=== PATIENT | female | born 1985 | race Caucasian/White ===

== ENCOUNTER 2021-01-24 06:49 | Emergency (ER) | payer OTHER ==
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
--- NOTE | 2021-01-24 08:30 | RAD REPORT ---
EXAM DESCRIPTION: CT - Spine Lumbar Wo Con - 01/24/2021 7:38 am CLINICAL HISTORY: Radiculopathy. LOWER BACK PAIN COMPARISON: No comparisons TECHNIQUE: Axial noncontrast CT imaging of the lumbar spine was performed with coronal and sagittal re-formatted images. All CT scans are performed using dose optimization technique as appropriate and may include automated exposure control or mA/KV adjustment according to patient size. FINDINGS: No acute lumbar spine fracture seen. No aggressive marrow pattern or malalignment. Paraspinal tissues are normal in thickness. No paraspinal abscess or hematoma seen. Mild to moderate spondylosis is present lower lumbar levels. Findings appear most significant at L5-S 1. IMPRESSION: No acute lumbar spine finding is evident. Mild to moderate lower lumbar spondylosis is present, most significant at L5-S1.
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
[2021-01-24] MEDS ORDERED: CYCLOBENZAPRINE 10 MG TAB ONE (09:07)
[2021-01-24] MEDS ORDERED: HYDROCODONE/APAP 5/325 MG TAB ONE (09:07)
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
[2021-01-24 09:27] VITALS: TEMP 98.4
[2021-01-24 09:29] VITALS: BP 110/67; O2SAT 97
== END 2021-01-24 09:20 | disposition home or self-care (01) ==
LOC: ER 06:49
DX: S09.90XA Unspecified injury of head, initial encounter (principal); S16.1XXA Strain of muscle, fascia and tendon at neck level, initial encounter; S30.0XXA Contusion of lower back and pelvis, initial encounter; F17.210 Nicotine dependence, cigarettes, uncomplicated; Y04.2XXA Assault by strike against or bumped into by another person, initial encounter
CPT/HCPCS: 70450; 70486; 72125; 72131; 72170; 76377; 99284

== ENCOUNTER 2021-04-08 02:07 | Emergency (ER) | payer OTHER ==
--- OUTSIDE RECORDS SUMMARY | 2021-04-08 02:10 | XMS REPORT | Clinical Summary ---
:[address] [facility] Address [address] [place] [address] Care Team Providers Name Role Phone Slim Dawn DMD Unavailable Allergies Active Allergy Reactions Severity Noted Date Comments Lactose Diarrhea 01/07/2016 Pt is lactose i ntolerant Oxycodone Swelling 09/01/2016 Topiramate Other (See Comments) Low 10/15/2015 Depress ed mood Alprazolam 01/07/2016 Agitation; rest less Medications Medication Sig Dispensed Refills Start Date End Date Status COMBIVENT RESPIMAT 0 08/21/2015 Active 20-100 mcg/actuation inhaler promethazine 0 09/15/2015 Active (PHENERGAN) 25 mg tablet LORazepam (ATIVAN) 1 Take 1 tablet (1 60 tablet 1 01/30/2016 Active mg tabletIndications: mg) by mouth 2 Major depression, (two) times a day melancholic type as needed for anxiety. carisoprodol (SOMA) Take 350 mg by 0 Active 350 mg mouth 3 (three) tabletIndications: times a day as muscle spasm needed for muscle spasms. oxyCODONE (ROXICODONE) Take 10 mL (10 mg) 473 mL 0 08/18/19 17 Active 5 mg/5 mL by mouth every 6 solutionIndications: (six) hours as Other acute pain needed for severe pain. HYDROcodone-acetaminop Take 2 tablets by 0 Active hen (NORCO) 10 mg-325 mouth every 6 mg per tablet (six) hours as needed. duloxetine HCl Take 90 mg by 0 A ctive (DULOXETINE mouth daily. ORAL)Indications: anxiety with depression pantoprazole Take 40 mg by 0 Act david (PROTONIX) 40 mg EC mouth daily with tablet breakfast. mupirocin (BACTROBAN) Use only on the 22 g 0 10/18/2017 Active 2% excoriated papules ointmentIndications: Neurotic excoriation clobetasol (TEMOVATE) Use on the new 30 g 0 10/18/2017 Active 0.05% lesions only for 2 ointmentIndications: weeks at a time, Neurotic excoriation avoid face axilla. hydrocortisone 2.5% Use only on face 30 g 0 10/18/2017 Active creamIndications: once a day on the Neurotic excoriation new lesions, do not use more than 2 weeks in a row Active Problems Problem Noted Date Pain of head and neck region 05/08/2017 Overview: Chronic with acute exacerbation Headache 05/08/2017 Nausea and vomiting 05/08/2017 Back pain 05/08/2017 Asthma 05/08/2017 Overview: No active wheezing Leukocytosis 05/08/2017 Hypomagnesemia 05/08/2017 Partially edentulous maxilla 05/29/2016 Other acquired deformity of head 05/29/2016 Class IV partial loss of teeth due to other specified cause 04/14/2016 Explosive personality disorder 10/03/2015 Tobacco use 09/19/2015 Major depression, melancholic type 09/19/2015 Odontogenic cyst 09/02/2015 Ovarian cyst 08/11/2015 Overview: HL ICD10 regulatory upload Encounters Date Type Specialty Care Team Description 07/28/2020 Orders Only Infectious Diseases Marly Perry, SARS -CoV-2 vaccination 07/04/2020 Orders Only Head and Neck Surgery Deja Mccoy PA Odo ntogenic cyst (Primary Dx) after 04/08/2020 Surgical History Surgery Date Site/Laterality Comments FRACTURE SURGERY OH REMV UPPER 02/13/2016 Mouth/Left Procedure: MAXIL LECTOMY, JAW-MAXILLECTOMY WITHOUT ORBITAL EXTENERATION; Surgeon: Isidro Salgado MD; Location: MAIN OR; Service: HN - HEAD & NECK SURGERY OH DENTAL SURGERY PROCEDURE 02/13/2016 N/A Proc edure: DENTAL EXTRACTION(S); Surgeon: Dusty Gross DDS; Location: MAIN OR; Service: OR AL ONCOLOGY & MAXILLOFACIAL OH OSTHODONTICS OH RECMPL WND SCALP,EXTR 02/13/2016 N/A Procedu re: COMPLEX WOUND 1.1-2.5 CM CLOSURE; Surgeo n: Nito Lacey MD; L ocation: MAIN OR; Service: PL S - PLASTIC SURGERY Medical History Medical History Date Comments Asthma Ruptured cyst of ovary Migraine Hearing loss Functional visual loss Loss of sense of smell Sinusitis 2009 went in er for abces s roof mouth front top gum Tooth disorder 2009 abcesses Swallowing problem 2015 yes when abcess occu rs in pallate Polycystic ovarian syndrome [address] Raeann Michaud Fracture 2004-09 left fiblia , plate/ pin [address] screws [address] Banuelos Presence of other specified device 2004-09 pin/p late 5 screws left fibula Depression 2008 Anxiety 2007 kvng Obsessive-compulsive disorder [address] العلي Family History Medical History Relation Name Comments Hyperlipidemia Father Coronary heart disease (CHD) Maternal Grandfather -Thoracic or Lung Maternal Grandmother Stroke Maternal Grandmother Hypertension Mother Rheum arthritis Mother Coronary heart disease (CHD) Paternal Grandfather Diabetes Paternal Grandfather -Breast cancer Paternal Grandmother Relation Name Status Comments Father Maternal Grandfather Maternal Grandmother Mother Paternal Grandfather Paternal Grandmother Social History Tobacco Use Types Packs/Day Years Used Date Former Smoker Cigarettes 1 22 10/15/1995 - 1 Smokeless Tobacco: Never Used Tobacco Cessation: Counseling Given: Yes Comments: just quit smoking 01/27/16, pt on Nicotine patches now Alcohol Use Standard Drinks/Week Comments Yes 1 (1 standard drink = 0.6 oz pure alcoho l) randomly not every week/day Alcohol Habits Answer Date Recorded How often do you have a drink containing Not asked alcohol? How many drinks containing alcohol do you Not asked have on a typical day when you are drinking? How often do you have six or more drinks on Not asked one occasion? Comment: randomly not every week/day 09/02/2015 Sex Assigned at Date Recorded Not on file Obstetrics History Para Term AB IAB SAB Ectopic Multiple Living Live Births 0 0 0 0 0 0 0 0 0 0 Last Filed Vital Signs Not on file Plan of Treatment Health Maintenance Due Date Last Done Comments COVID-19 Vaccination (1) 08/25/1988 Implants Implanted Type Area Payroll Administrative Assistant Device Identifier Shelf Exp iration Model / Date Serial / L ot [employer] Brand Pin Name Description: PIN and Screws in Fibula Results Not on fileafter 04/08/2020 Insurance Payer Benefit Plan / Subscriber ID Effective Phone Address T ype Group Dates HUMANA MEDICARE HU[employer]NA GOLD PLUS [id number] 2019-Pres [address] Medicare MEDICARE HMO [place] [id number] [place] [address] MED[place] [id number] 2019-Pres PO [address] Medicaid TRADITIONAL TRADITIONAL STAR ent [id number] [place] [address] Areli Gómez Dental Self 1985 [address] (Home) [place] [phone] Advance Directives Type Date Recorded Patient Bottom Wheeler Explanati on Advance Directives: 02/12/2016 12:00 AM Directiv e to Living Will Physicians and F leley or Surrogates-Dee Dee yu Will Advance Directives: 02/12/2016 12:00 AM Medical Power of Medical Power of [employer] St[employer]cher [employer] Code Status Date Activated Date Inactivated Comments Full Code 02/13/2016 10:10 AM 02/14/2016 12:32 PM Full Code 01/08/2016 12:32 AM 01/08/2016 5:53 PM Care Teams Head And Neck Surgeon Relationship Specialty Start Date End Date Slim Dawn, DMD Consulting Physician Dental Oncology 06/17/[address] [place] [id number]
--- OUTSIDE RECORDS SUMMARY | 2021-04-08 02:14 | XMS REPORT | Continuity of Care Document ---
:1985 Author Organization [facility] t Address [address] [place] [address] Care Team Providers Name Role Phone KRISTAL JACOBO Primary Care Physician Unavailable ODALIS Attending Clinician Unavailable Orlando CARDONA Attending Clinician Darius RADER Attending Clinician REJI Attending Clinician Unavailable PIETER CHAPA Attending Clinician Unavailable Marie FREY Attending Clinician Unavailable ANDREW Attending Clinician Unavailable Payers Payer Name Policy Policy Number Effective Expiration Source Type Date Date HUMANA MEDICAREHUMANA [id number] 2019 MD Genaro BURGOS PLUS MEDICARE 00:00:00 [id number] 2019-Pr [id number] [place] [id number] [place]ICAID [place] [id number] 2019 MD Anderso n [place] 00:00:00 TRADITIONAL STAR NON [id number] 2019-Pr es[address]PO [id number], [place] [address]Medicaid HUMANA CHOICECARE PPO [id number] 2018 00:00:00 MEDICAID OF [place] [id number] 2018 00:00:00 Problems Condition Condition Condition Status Onset Resolution Last Treating Co mments Source Name Details Category Date Date Treatment Clinician Date FACIAL Diagnosis Active 2017-042018-03-17 Mem oria SORES, 05-17 16:03:00 l MUSCLE FACIAL 00:00: [place] SPASMS, SORES, 00 LEFT ARM MUSCLE PA SPASMS, LEFT ARM PA Active 8 [facility] SEPSIS Diagnosis Active 2017-10-12 Mem oria 10-11 16:23:00 l SEPSIS 00:00: [place] 00 Active 10/11/2017 [facility] CANCER PT, Diagnosis Active 2017-10-11 Memoria PAIN, 10-11 16:04:00 l INFECTION CANCER 00:00: Sulma nn PT, PAIN, 00 INFECTION Active 10/11/2017 [facility] Pain of Pain of Disease Active Overview: head and head and 1-20 Formattin And erso neck neck 00:00: g of this n region region 00 note might be different from the original. Chronic with acute exacerbat ion Headache Headache Disease Active 1-20 Anderso 00:00: n 00 Nausea and Nausea and Disease Active M D vomiting vomiting -20 Cosmo o 00:00: n 00 Back pain Back pain Disease Active 1-20 Anderso 00:00: n 00 Asthma Asthma Disease Active Overview: 1-20 Formattin Anderso 00:00: g of this n 00 note might be different from the original. No active wheezing Leukocytos Leukocytos Disease Active M D is is 1-20 Anderso 00:00: n 00 Hypomagnes Hypomagnes Disease Active M D emia emia 1-20 Anderso 00:00: n 00 Chronic Chronic Problem Active [place] obstructiv Obstructiv 2-10 Fa carlitos e lung e Lung 00:00: Practic disease Disease 00 e Gastroesop Gastroesop Problem Active V illage hageal hageal 2-10 Family reflux Reflux 00:00: Practic disease Disease 00 e Partially Partially Disease Active edentulous edentulous 2-10 An derso maxilla maxilla 00:00: n 00 Other Other Disease Active MD acquired acquired 2-10 Cosmo o deformity deformity 00:00: n of head of head 00 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 2-27 Anderso loss of loss of 00:00: n teeth due teeth due 00 to other to other specified specified cause cause PAIN Diagnosis Active 2016-01-27 Mem oria 805 16:05:00 l PAIN 00:00: [place] 00 Active 11/22/2015 [facility] Explosive Explosive Disease Active MD personalit personalit 16 An derso y disorder y disorder 00:00: n 00 Tobacco Tobacco Disease Active MD use use 09-18 Anderso 00:00: n 00 Major Major Disease Active MD depression depression 09-18 An derso , , 00:00: n melancholi melancholi 00 c type c type 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 c cyst 16 Anderso 00:00: n 00 Mood Mood Problem Active [place] disorder Disorder -04 Family 00:00: Practic 00 e Endometrio Endometrio Problem Active V illage sis sis 04 Family (clinical) (Clinical) 00:00: Pr actic 00 e Cyst of Cyst of Problem Active [facility] ovary Ovary 5-04 Family 00:00: Practic 00 e Degenerati Degenerati Problem Active V illage on of on of 08-20 Family cervical Cervical 00:00: Practi c interverte Interverte 00 e bral disc bral Disc Degenerati Degenerati Problem Active V illage on of on of 04 Family lumbar Lumbar 00:00: Practic interverte Interverte 00 e bral disc bral Disc Ovarian Ovarian Disease Active Overview: MD cyst cyst 24 Formattin Anderso 00:00: g of this n 00 note might be different from the original. HL ICD10 regulator y upload VOMITING Diagnosis Active 2015-10-10 M emoria 1-06 11:00:00 l VOMITING 00:00: Navi n 00 Active 04/24/2015 [place] Pain in Problem 2018-10-05 Dmitriy ela left lower 13:31:52 l leg Pain in [place] left lower leg 10/05/2018 [place] Cough Problem 2018-10-05 Memor ia 13:31:52 l Cough Carlo 10/05/2018 [place] Nicotine Problem 2018-10-05 Mem oria dependence 13:31:52 l , Nicotine Navi n cigarettes dependence , , uncomplica cigarettes susanne , uncomplica susanne 10/05/2018 [place] Chronic Problem 2018-10-05 Dmitriy ela obstructiv 13:31:52 l e Chronic Carlo pulmonary obstructiv disease, e unspecifie pulmonary d disease, unspecifie d 10/05/2018 [facility] None Problem Resolve 2020-01-11 Dmitriy ela (qualifier d 21:56:10 l value) None Carlo (qualifier value) Resolved Problem 01/11/2020 [facility] [facility], [place] SEPSIS, Diagnosis Active 2017-10-12 Me moria UNSPECIFIE 16:23:00 l D ORGANISM SEPSIS, Her prasad UNSPECIFIE D ORGANISM Active [facility] History of Past Illness Condition Condition Condition Status Onset Resolution Last Treating Co mments Source Name Details Category Date Date Treatment Clinician Date Other Problem 2017-042018-10-05 2018-10-05 M emoria chest pain 05-25 13:31:52 13:31:52 l Other 04:34: Carlo chest pain 14 03/24/2018 10/05/2018 [place] Chest Problem 2017-042018-10-05 2018-10-05 M emoria pain, 05-17 13:31:52 13:31:52 l unspecifie Chest 06:00: Sulma nn d pain, 00 unspecifie d 03/17/2018 10/05/2018 [place] Pain in Problem 2017-042018-10-05 2018-10-05 Memoria leg, 05-17 13:31:52 13:31:52 l unspecifie Pain in 06:00: Her prasad d leg, 00 unspecifie d 03/17/2018 10/05/2018 [place] Shortness Problem 2017-042018-10-05 2018-10-05 Memoria of breath 05-17 13:31:52 13:31:52 l 06:00: [place] Shortness 00 of breath 03/17/2018 10/05/2018 [facility] Allergies, Adverse Reactions, Alerts Allergy Allergy Status Severity Reaction(s) Onset Inactive Treating Comm ents Source Name Type Date Date Clinician GABAPENT Allergy [facility] LORAZEPA Allergy Active Low Anxiety [facility] MORPHINE Allergy Active Low Anxiety 2017-[address] [facility] LAMOTRIG Allergy Active [facility] MIDAZOLA Allergy Active [facility] PREGABAL Allergy Active [facility] OXYCODON Allergy Active [facility] TOPIRAMA Allergy Active [facility] ALPRAZOL Allergy Active Low Other [facility] CLINDAMY Allergy Active Other [facility]CL [facility] No Known DA Active [facility] Lyrica Allergy Active [place] to Family substanc Practic e e Topirama Allergy Active [place] te to Family substanc Practic e e Xanax Allergy Active [place] to Family substanc Practic e e Family History Family Member Diagnosis Comments Start Date Stop Date Source Natural mother Hypertension Neil son Natural mother Rheum arthritis MD Marjan gomez Paternal grandfather Coronary heart disease MD Lam (CHD) Paternal grandfather Diabetes MD Selene mckeon Paternal grandmother -Breast cancer MD Lam Natural father Hyperlipidemia And erson Maternal grandfather Coronary heart disease MD Lam (CHD) Maternal grandmother -Thoracic or Lung MD Lam Maternal grandmother Stroke MD Selene mckeon Social History Social Habit Start Date Stop Date Quantity Comments Source History [facility] MD Lam Alcohol Frequency History [facility] MD Lam Alcohol Std Drinks History [facility] MD Lam Alcohol Binge Alcohol intake 2018-01-29 2018-01-29 Current drinker MD Marjan gomez 00:00:00 00:00:00 of alcohol (finding) Cigarettes smoked 2016-02-19 2016-02-19 MD Sam boucher current (pack per 00:00:00 00:00:00 day) - Reported Cigarette 2016-02-19 2016-02-19 MD Lam pack-years 00:00:00 00:00:00 Tobacco use and 2016-02-19 2016-02-19 Smokeless tobacco MD Lam exposure 00:00:00 00:00:00 non-user Tobacco Comment 2016-02-12 2016-02-12 just quit smoking MD Lam 00:00:00 00:00:00 01/27/16, pt on Nicotine patches now History of tobacco 1995-10-15 2016-01-27 Current smoker MD Lam use 00:00:00 00:00:00 History [facility] 2015-09-02 2015-09-02 randomly not MD Blank rios Alcohol Comment 00:00:00 00:00:00 every week/day Social History 2015-04-24 2015-04-24 [facility] 13:58:55 13:58:55 Sex [birth year] MD [place] on 00:00:00 00:00:00 Smoking Status Start Date Stop Date Source Heavy Tobacco Smoker [facility] Ex-smoker 2016-02-19 00:00:00 2016-02-19 00:00:00 MD Trejo son Medications Ordered Filled Start Stop Current Ordering Indication Dosage Frequency Signature Comments Components Source Medication Medication Date Date Medication? Clinician (SIG) Name Name Naproxen 2017-04 No 500 mg = 1 Mem oria 500 MG Oral 1-30 tab, PO, l Tablet 05:57: BID, # 30 Navi n [Naprosyn] 00 tab, 0 Refill(s) Aspirin 2017-04 No Notes: Memoria 1-29 Take with l 20:04: food. Saline 2017-04 No Notes: Memoria Flush 0.9% 05-17 Same as: l 20:04: BD Posiflush Sterile pantoprazol 2017-04 Yes 40mg Take 40 mg MD e 0-13 by mouth Anderso (PROTONIX) 04:36: daily with n 40 mg EC 06 breakfast. tablet carisoprodo 2017-04 Yes muscle 350mg Take 350 MD l (SOMA) 0-13 spasm mg by Anderso 350 mg 04:27: mouth 3 n tablet 10 (three) times a day as needed for muscle spasms. HYDROcodone 2017-04 Yes 2{tbl} Take 2 MD -acetaminop 0-13 tablets by An derso hen (NORCO) 04:27: mouth n 10 mg-325 10 every 6 mg per (six) tablet hours as needed. duloxetine 2017-04 Yes anxiety 90mg Take 90 mg MD HCl 0-13 with by mouth Anderso (DULOXETINE 04:27: depression daily. n ORAL) 10 mupirocin Yes Neurotic Use only MD (BACTROBAN) 10-18 excoriation on the Anderso 2% ointment 00:00: excoriated n 00 papules clobetasol Yes Neurotic Use on the MD (TEMOVATE) 10-18 excoriation new An derso 0.05% 00:00: lesions n ointment 00 only for 2 weeks at a time, avoid face axilla. hydrocortis Yes Neurotic Use only MD one 2.5% 10-18 excoriation on face A nderso cream 00:00: once a day n 00 on the new lesions, do not use more than 2 weeks in a row Albuterol No Notes: Memori a 0.833 MG/ML 10-13 (Same as: 19:00: Duoneb) [place] Ipratropium 00 [place] 0.167 MG/ML Inhalant Solution [DuoNeb] Zofran No Notes: Memoria -27 (Same as: l 18:50: Zofran) Carlo MEDICATION WASTE Product Size: 4 mg Product Wasted: ___ mg Sucralfate No 1 gm, Memori a -27 Route: PO, l 14:00: Drug form: Carlo TAB, TID, Dosing Weight 77.443, kg, Start date: 10/13/17 9:00:00 CDT, Duration: 30 day, Stop date: 11/11/17 17:00:00 CDT D5W 1/4NS + No Notes: Dmitriy ela KCL 10mEq/L 10-13 PREMIX IV l 1000ml 12:54: - Do Not Carlo (Premix) 00 Alter 1,000 mL WASTE: F/P - Sink; E - Municipal Trash Bin Sucralfate No Notes: August emoria - interfere l 05:01: w/enteral [place] 00 feeds - Take 1 hr before or 2 hr after antacids, dairy pdt, meals & minerals - On empty stomach. For patients unable to swallow tablet, dissolve in 10mL - 30mL of water or juice and stir before giving. (Same As: Carafate) Acetaminoph No Notes: emoria en 300 MG / 10-13 not exceed l Codeine 01:05: 4gm/day of Herm ashleigh Phosphate 00 acetaminop 30 MG Oral hen. Tablet (Same as: [Tylenol Tylenol with with Codeine #3] Codeine # 3) Protonix No Notes: Memoria 6-26 Tablet l 21:30: should not Carlo 00 be chewed or crushed. (Same as: Protonix) Midodrine No Notes: Memori a 6-26 (Same l 18:00: as:Proamat [place] 00 ine) D5NS + KCL No Notes: Memor ia 20mEq/L 6-26 PREMIX IV l 1000ml 14:14: - Do Not [place] (Premix) 00 Alter 1,000 mL WASTE: F/P - Sink; E - Municipal Trash Bin Trazodone No Notes: Memori a 6-26 (Same As: l 14:12: Desyrel) [place] 00 duloxetine No 30 mg, Memor ia 6-26 Route: PO, l 14:00: Drug form: Carlo 00 DRC, Daily, Dosing Weight 77.443, kg, Start date: 10/12/17 9:00:00 CDT, Duration: 30 day, Stop date: 11/10/17 9:00:00 CDT cefepime No Notes: Memoria 6-26 (Same As: l 07:00: Maxipime) MEDICATION WASTE Product Size: 1000 mg Product Wasted: ___ mg duloxetine No Notes: Memor ia 10-12 (Same as: l 04:00: Cymbalta) (Do Not Crush) Nicotine No Notes: Memoria 10-12 (Same as: l 03:25: Habitrol) "Remove old patch before applicatio n of new patch" WASTE: F/P - P Waste Black; E - P Waste Black Iohexol No Notes: Memoria 10-12 (Same l 02:48: as:Omnipaq ue 240) 12,000mg/5 0ml WASTE: F/P - Black; E - Municipal Trash Bin DULoxetine Yes 30 mg = 1 Me moria 30 mg oral 10-12 cap, PO, l delayed 01:59: Daily, Carlo release 00 take with capsule 60 mg tablet for total of 90 mg, 0 Refill(s) pantoprazol Yes 40 mg = 1 M emoria e 40 mg 10-12 tab, PO, l oral 01:26: Daily, # Carlo enteric 00 30 tab, 0 coated Refill(s) tablet Combivent Yes 1 puff, Memor ia Respimat 10-12 INHALATION l 01:26: , PRN [place] 00 Shortness of breath, 0 Refill(s) Promethazin Yes 25 mg = 1 M emoria e 6-26 tab, PO, l Hydrochlori 01:26: Q6H, PRN He rmann de 25 MG 00 as needed Oral Tablet for nausea/vom iting, 0 Refill(s) Lorazepam 1 Yes 1 mg = 1 Me moria MG Oral -26 tab, PO, l Tablet 01:26: BID, PRN Carlo 00 as needed for anxiety, 0 Refill(s) Oxycodone Yes 10 mg = 10 Me moria Hydrochlori 6-26 mL, PO, l de 1 MG/ML 01:26: Q6H, PRN Her prasad Oral 00 Pain Score Solution 6-10, 0 Refill(s) carisoprodo Yes 350 mg = 1 Memoria l 350 mg 6- tab, PO, l oral tablet 01:26: TID, PRN He rm Muscle Spasms, 0 Refill(s) Acetaminoph Yes 1 tab, PO, Memoria en 325 MG / -26 Q6H, PRN l Hydrocodone 01:26: Pain Score [place] Bitartrate 00 1-5, 0 10 MG Oral Refill(s) Tablet DULoxetine Yes 60 mg = 1 Me moria 60 mg oral 6- cap, PO, l delayed 01:26: Daily, take with capsule 30 mg tablet for a total of 90 mg, 0 Refill(s) Flagyl No Notes: Memoria - (Same as: l 01:00: Flagyl) Avoid alcohol. Zofran No Notes: Memoria 10-12 (Same as: l 00:06: Zofran) MEDICATION WASTE Product Size: 4 mg Product Wasted: ___ mg Tylenol No Notes: Do Memor ia 10-12 not exceed l 00:06: 4 gm/day. (Same as: Tylenol) Albuterol No Notes: Memori a 0.833 MG/ML 10-12 (Same as: l / 00:06: Duoneb) Ipratropium 00 [place] 0.167 MG/ML Inhalant Solution [DuoNeb] cefepime No Notes: Memoria 10-11 (Same as: l 22:18: Maxipime) MEDICATION WASTE Product Size: 2000 mg Product Wasted: ___ mg Vancomycin No Notes: Memor ia 6-25 TIME l 22:17: CRITICAL MEDICATION Same as: Vancocin Pepcid No 40 mg, Memoria 6-25 Route: l 21:38: IVP, ONCE, Dosing Weight 79.091, kg, Priority: STAT, Start date: 10/11/17 16:38:00 CDT, Stop date: 10/11/17 16:38:00 CDT GI cocktail No Notes: Dmitriy ela 6-25 G.I. l 21:38: Cocktail = antacid with simethicon e 22.5 mL - lidocaine viscous 7.5 mL Zofran ODT 2018-0 No 4 mg, Memori a 6-25 Route: PO, l 21:29: Drug form: [place] 00 TABDIS, ONCE, Dosing Weight 79.091, kg, Priority: STAT, Start date: 10/11/17 16:29:00 CDT, Stop date: 10/11/17 16:29:00 CDT NS (Bolus) 2017-0 No 1,000 mL, Me moria IV 25 1,000 l 21:25: ml/hr, Infuse Over: 1 hr, Route: IV, ONCE, Priority: STAT, Dosing Weight 79.091 kg, Start date: 10/11/17 16:25:00 CDT, Stop date: 10/11/17 16:25:00 CDT ketOROLAC 2017-0 No 15 mg, Memori a 15 mg/mL 25 Route: l injectable 21:25: IVP, Drug He rm solution form: INJ, ONCE, Dosing Weight 79.091, kg, Priority: STAT, Start date: 10/11/17 16:25:00 CDT, Stop date: 10/11/17 16:25:00 CDT Saline 2017-0 No Notes: Memoria Flush 0.9% 625 Same as: l 17:16: BD Posiflush Sterile Sodium 2017-0 No 1,000 mL, Memori a Chloride 6-25 1000 l 0.9% 17:16: ml/hr, [place] (Bolus) IV 00 Infuse Over: 1 hr, Route: IV, 1,000, Drug form: INJ, ONCE, Priority: STAT, Dosing Weight 79.091 kg, Start date: 10/11/17 12:16:00 CDT, Stop date: 10/11/17 12:16:00 CDT tizanidine tizanidine 2016- 2017- No tizanidine [place] hcl 4 mg hcl 4 mg 8-31 08-31 hcl 4 mg Fa carlitos tabs 1 tab tabs 1 tab 00:00: 00:00 tabs 1 tab Practic at night at night 00 :00 at night e oxyCODONE 2017-0 Yes Other acute 10mg Take 10 mL MD (ROXICODONE 501 pain (10 mg) by An derso ) 5 mg/5 mL 00:00: mouth n solution 00 every 6 (six) hours as needed for severe pain. LORazepam 2015-04 Yes Major 1mg Take 1 MD (ATIVAN) 1 0-13 depression, tablet (1 Anderso mg tablet 00:00: melancholic mg) by n 00 type mouth 2 (two) times a day as needed for anxiety. promethazin Yes MD e 09-14 Anderso (PHENERGAN) 00:00: n 25 mg 00 tablet COMBIVENT Yes MD RESPIMAT 5- Anderso 20-100 00:00: n mcg/actuati 00 on inhaler albuterol albuterol No 3mL TID albuterol [place] sulfate 2.5 sulfate 2.5 sulfate Family mg/3 mL mg/3 mL 2.5 mg/3 Pract ic (0.083 %) (0.083 %) mL (0.083 e solution solution %) for for solution nebulizatio nebulizatio for n Inhale 3 n Inhale 3 nebulizati mL 3 times mL 3 times on Inhale a day by a day by 3 mL 3 nebulizatio nebulizatio times a n route. n route. day by nebulizati on route. carisoprodo carisoprodo No carisoprod [facility] l 350 mg l 350 mg ol 350 mg Fa carlitos tablet take tablet take tablet Practic 2 tablets 2 tablets take 2 e in the in the tablets in morning and morning and the 2 at 2 at morning bedtime bedtime and 2 at bedtime carisoprodo carisoprodo No carisoprod [facility] l 350 mg l 350 mg ol 350 mg Fa carlitos tabs tabs tabs Practic e Combivent Combivent No 2puff(s QID Combivent [place] Respimat 20 Respimat 20 ) Respimat Family mcg-100 mcg-100 20 mcg-100 Pra ctic mcg/actuati mcg/actuati mcg/actuat e on solution on solution ion for for solution inhalation inhalation for Inhale 2 Inhale 2 inhalation puffs 4 puffs 4 Inhale 2 times a day times a day puffs 4 by by times a inhalation inhalation day by route. route. inhalation route. Cymbalta 30 Cymbalta 30 No 1capsul Q1D Cymbalta [place] mg mg e(s) 30 mg Family capsule,del capsule,del capsule,de Practic ayed ayed layed e release release release Take 1 Take 1 Take 1 capsule capsule capsule every day every day every day by oral by oral by oral route. route. route. Cymbalta 60 Cymbalta 60 No 1capsul Q1D Cymbalta [place] mg mg e(s) 60 mg Family capsule,del capsule,del capsule,de Practic ayed ayed layed e release release release Take 1 Take 1 Take 1 capsule capsule capsule every day every day every day by oral by oral by oral route. route. route. start after start after start finishing finishing after 30mg dose 30mg dose finishing 30mg dose diclofenac diclofenac No diclofenac [facility] sodium 3 % sodium 3 % sodium 3 % Family gel gel gel Practic e doxepin doxepin No doxepin Villag e hydrochlori hydrochlori hydrochlor [facility] de 5 % crea de 5 % crea uri 5 % Practic crea e doxycycline doxycycline No 1capsul BID doxycyclin [facility] hyclate 100 hyclate 100 e(s) e hyclate Family mg capsule mg capsule 100 mg P ractic Take 1 Take 1 capsule e capsule capsule Take 1 twice a day twice a day capsule by oral by oral twice a route. route. day by oral route. hydroco/apa hydroco/apa No hydroco/ap [place] p tab p tab ap tab Family 10-325mg 10-325mg 10-325mg Pra ctic e lidocaine 5 lidocaine 5 No lidocaine [place] % medicated % medicated 5 % F amily patch and patch and medicated Practic dimethicone dimethicone patch and e 5 % topical 5 % topical dimethicon cream apply cream apply e 5 % 4 patches a 4 patches a topical day day cream apply 4 patches a day lorazepam 1 lorazepam 1 No 1 TID lorazepam [place] mg tablet mg tablet 1 mg Famil y Take 1 Take 1 tablet Practic tablet 3 tablet 3 Take 1 e times a day times a day tablet 3 by oral by oral times a route as route as day by needed. needed. oral route as needed. mefenamic mefenamic No mefenamic [place] acid 250 mg acid 250 mg acid 250 Family caps caps mg caps Practic e Dickinson 10 Dickinson 10 No 1 Q4H Dickinson 10 Jasiel angie mg-325 mg mg-325 mg mg-325 mg Family tablet Take tablet Take tablet Practic 1 tablet 1 tablet Take 1 e every 4 every 4 tablet hours by hours by every 4 oral route. oral route. hours by oral route. pantoprazol pantoprazol No pantoprazo [place] e sodium 40 e sodium 40 le sodium Family mg tbec mg tbec 40 mg tbec Pra ctic e prednisone prednisone No 2 Q1D prednisone [facility] 20 mg 20 mg 20 mg Family tablet Take tablet Take tablet Practic 2 tablets 2 tablets Take 2 e every day every day tablets by oral by oral every day route. route. by oral route. temazepam temazepam No temazepam [place] 30 mg caps 30 mg caps 30 mg caps Family Practic e pantoprazol pantoprazol 2017- No 1 Q1D pantoprazo [place] e 40 mg e 40 mg 03-08 le 40 mg Fami ly tablet,eduardo tablet,eduardo 00:00 tablet,del Practic yed release yed release :00 ayed e Take 1 Take 1 release tablet tablet Take 1 every day every day tablet by oral by oral every day route. route. by oral route. temazepam temazepam 2017- 1capsul Q1D temazepam [facility] 30 mg 30 mg 02-08 e(s) 30 mg Family capsule capsule 00:00 capsule Pract ic Take 1 Take 1 :00 Take 1 e capsule capsule capsule every day every day every day by oral by oral by oral route at route at route at bedtime. bedtime. bedtime. [facility]- No combivent [facility] aer 20-100 aer 20-100 01-20 aer Family 00:00 20-100 Practic :00 e amox/k clav amox/k clav 2016- amox/k [place] tab tab 12-17 clav tab Family [phone] 00:00 875-125 Pract ic :00 e belsomra 10 belsomra 10 2017- belsomra [place] mg tabs mg tabs 12-17 10 mg tabs Fa carlitos 00:00 Practic :00 e hydromorpho hydromorpho 2016- hydromorph [facility] ne hcl 8 mg ne hcl 8 mg 12-17 one hcl 8 Family tabs tabs 00:00 mg tabs Practic :00 e lidocaine 5 lidocaine 5 No lidocaine [place] % ptch % ptch 12-17 5 % ptch Family 00:00 Practic :00 e lorazepam 1 lorazepam 1 2016- lorazepam [place] mg tabs mg tabs 12-17 1 mg tabs Fam darius 00:00 Practic :00 e lyrica 75 lyrica 75 2016- lyrica 75 Village mg caps mg caps 12-17 mg caps Famil y 00:00 Practic :00 e oxycodone oxycodone 2016- oxycodone [facility] hcl 5 hcl 5 12-17 hcl 5 Family mg/5ml soln mg/5ml soln 00:00 mg/5ml Practic :00 soln e stiolto stiolto 2016- stiolto [facility] ge aer aer 12-17 aer Family 2.5-2.5 2.5-2.5 00:00 2.5-2.5 Pract ic :00 e temazepam temazepam 2016- temazepam [facility] 15 mg caps 15 mg caps 12-17 15 mg caps Family 00:00 Practic :00 e tizanidine tizanidine 2016- 1 TID tizanidine [facility] 4 mg tablet 4 mg tablet 12-17 4 mg Family Take 1 Take 1 00:00 tablet Practic tablet 3 tablet 3 :00 Take 1 e times a day times a day tablet 3 by oral by oral times a route as route as day by needed. needed. oral route as needed. Janie Lima 2016- No 2puff(s Q1D Stiolto Vi llage Respimat Respimat 04-05 ) Respimat Fa carlitos 2.5 mcg-2.5 2.5 mcg-2.5 00:00 2.5 Practic mcg/actuati mcg/actuati :00 mcg-2.5 e on solution on solution mcg/actuat for for ion inhalation inhalation solution Inhale 2 Inhale 2 for puffs every puffs every inhalation day by day by Inhale 2 inhalation inhalation puffs route. route. every day by inhalation route. apap/codein apap/codein 2016- apap/codei [place] e tab e tab 02-10 ne tab Family 300-60mg 300-60mg 00:00 300-60mg Pr actic :00 e clonazepam clonazepam 2016- clonazepam [facility] 0.5 mg tabs 0.5 mg tabs 05-29 0.5 mg Family 00:00 tabs Practic :00 e glycopyrrol glycopyrrol 2017- No glycopyrro [facility] ate 2 mg ate 2 mg 02-10 late 2 mg F amily tabs tabs 00:00 tabs Practic :00 e hydroco/apa hydroco/apa 2017- No hydroco/ap [place] p tab p tab 02-10 ap tab Family 5-325mg 5-325mg 00:00 5-325mg Pract ic :00 e ibuprofen ibuprofen 2017- No ibuprofen [facility] 800 mg tabs 800 mg tabs 02-10 800 mg Family 00:00 tabs Practic :00 e ketorolac ketorolac 2017- No ketorolac [facility] tromethamin tromethamin 05-29 tromethami Family e 10 mg e 10 mg 00:00 ne 10 mg Prac tic tabs tabs :00 tabs e lamotrigine lamotrigine 2017- No lamotrigin [facility] 25 mg tabs 25 mg tabs 02-10 e 25 mg Family 00:00 tabs Practic :00 e meloxicam meloxicam 2017- No meloxicam [facility] 7.5 mg tabs 7.5 mg tabs 02-10 7.5 mg Family 00:00 tabs Practic :00 e mirtazapine mirtazapine 2017- No mirtazapin [facility] 15 mg tabs 15 mg tabs 02-10 e 15 mg Family 00:00 tabs Practic :00 e oxycodone oxycodone 2017- No oxycodone [facility] hcl 10 mg hcl 10 mg 02-10 hcl 10 mg Family tabs tabs 00:00 tabs Practic :00 e prazosin prazosin 2017- No prazosin Vi [facility] hcl 2 mg hcl 2 mg 02-10 hcl 2 mg Fa carlitos caps caps 00:00 caps Practic :00 e promethazin promethazin 2017- No promethazi [facility] e hcl 25 mg e hcl 25 mg 02-10 ne hcl 25 Family tabs tabs 00:00 mg tabs Practic :00 e risperidone risperidone 2017- No risperidon [facility] 1 mg tabs 1 mg tabs 02-10 e 1 mg Fa carlitos 00:00 tabs Practic :00 e sertraline sertraline 2017- No sertraline [facility] hcl 50 mg hcl 50 mg 02-10 hcl 50 mg Family tabs tabs 00:00 tabs Practic :00 e smz/tmp ds smz/tmp ds 2016- No smz/tmp ds [facility] tab tab - tab Family [phone] 00:00 800-160 Pract ic :00 e topiramate topiramate 2017- No topiramate [facility] 25 mg tabs 25 mg tabs 05-29 25 mg tabs Family 00:00 Practic :00 e Immunizations Ordered Immunization Filled Immunization Date Status Commen ts Source Name Name Tdap Tdap 2014-11-07 Completed [facility] 00:00:00 [facility] Vital Signs Vital Name Observation Time Observation Value Comments Source HEIGHT 2020-05-02 07:25:00 157.5 cm WEIGHT 2020-05-02 07:25:00 79.833 kg Respitory Rate 2018-03-18 05:30:00 [facility] [place] Systolic (mm Hg) 2018-03-18 05:30:00 Dmitriy rial [place] Diastolic (mm Hg) 2018-03-18 05:30:00 Mem orial [facility] Heart Rate 2018-03-18 05:30:00 [facility] Weight 2018-03-17 20:01:00 [facility] Temperature Oral (F) 2018-03-17 20:01:00 97.9 F [facility] [place] Heart Rate 2018-03-17 20:01:00 [facility] Respitory Rate 2018-03-17 20:01:00 [facility] Systolic (mm Hg) 2018-03-17 20:01:00 Dmitriy rial [place] Diastolic (mm Hg) 2018-03-17 20:01:00 Mem orial [place] Systolic (mm Hg) 2017-10-13 15:31:00 Dmitriy rial [place] Diastolic (mm Hg) 2017-10-13 15:31:00 Mem orial [place] Heart Rate 2017-10-13 15:31:00 [facility] [place] Temperature Oral (F) 2017-10-13 15:31:00 97.8 F [facility] [place] Respitory Rate 2017-10-13 15:31:00 [facility] [place] Systolic (mm Hg) 2017-10-13 12:19:00 Dmitriy rial [place] Diastolic (mm Hg) 2017-10-13 12:19:00 Mem orial [facility] Respitory Rate 2017-10-13 12:19:00 [facility] [place] Temperature Oral (F) 2017-10-13 12:19:00 98.6 F [facility] [place] Heart Rate 2017-10-13 12:19:00 [facility] [place] Heart Rate 2017-10-13 07:45:00 [facility] [place] Respitory Rate 2017-10-13 07:45:00 Kevin albright [facility] Systolic (mm Hg) 2017-10-13 07:45:00 Dmitriy meléndez [place] Diastolic (mm Hg) 2017-10-13 07:45:00 Mem orial [place] Temperature Oral (F) 2017-10-13 07:45:00 98.2 F [facility] [place] BMI Calculated 2017-10-12 01:12:00 [facility] Height 2017-10-12 01:12:00 157.48 cm [facility] Weight 2017-10-12 01:12:00 [facility] BMI Calculated 2017-10-11 16:32:00 [facility] [place] Height 2017-10-11 16:32:00 157.48 cm [facility] Weight 2017-10-11 16:32:00 [facility] BP Diastolic 2017-07-12 00:00:00 80 mm[Hg] [facility] Height 2017-07-12 00:00:00 62 [in_i] [facility] BMI (Body Mass Index) 2017-07-12 00:00:00 29.4 kg/m2 [facility] BP Systolic 2017-07-12 00:00:00 118 mm[Hg] [facility] Body Weight 2017-07-12 00:00:00 161 [lb_av] [facility] BP Diastolic 2017-06-24 00:00:00 84 mm[Hg] [facility] Height 2017-06-24 00:00:00 62 [in_i] [facility] BMI (Body Mass Index) 2017-06-24 00:00:00 31.1 kg/m2 [facility] BP Systolic 2017-06-24 00:00:00 108 mm[Hg] [facility] Body Weight 2017-06-24 00:00:00 170 [lb_av] [facility] BP Diastolic 2017-05-27 00:00:00 84 mm[Hg] [facility] Height 2017-05-27 00:00:00 62 [in_i] [facility] BMI (Body Mass Index) 2017-05-27 00:00:00 31.4 kg/m2 [facility] BP Systolic 2017-05-27 00:00:00 126 mm[Hg] [facility] Body Weight 2017-05-27 00:00:00 171.6 [lb_av] [facility] BP Diastolic 2016-12-17 00:00:00 70 mm[Hg] [facility] Height 2016-12-17 00:00:00 62 [in_i] [facility] BMI (Body Mass Index) 2016-12-17 00:00:00 31.8 kg/m2 [facility] BP Systolic 2016-12-17 00:00:00 130 mm[Hg] [facility] Body Weight 2016-12-17 00:00:00 173.6 [lb_av] [facility] BP Diastolic 2016-05-29 00:00:00 76 mm[Hg] [facility] Height 2016-05-29 00:00:00 62 [in_i] [facility] BMI (Body Mass Index) 2016-05-29 00:00:00 32.2 kg/m2 [facility] BP Systolic 2016-05-29 00:00:00 106 mm[Hg] [facility] Body Weight 2016-05-29 00:00:00 176 [lb_av] [facility] BP Diastolic 2015-08-21 00:00:00 76 mm[Hg] [facility] Height 2015-08-21 00:00:00 61 [in_i] [facility] BMI (Body Mass Index) 2015-08-21 00:00:00 27.40 kg/m2 [facility] BP Systolic 2015-08-21 00:00:00 130 mm[Hg] [facility] Body Weight 2015-08-21 00:00:00 145 [lb_av] [facility] Procedures Procedure Date / Time Performed Performing Clinician Sourc e 2VIEWS RADIOLOGIC 2017-07-12 00:00:00 [facility] Stephen urbina EXAMINATION, CHEST Practice Other 2015-04-19 00:00:00 [facility] Fami ly Practice Other 2004-04-19 00:00:00 [facility] ly Practice Myomectomy [facility] Dilation and curettage [facility] Plan of Care Planned Activity Planned Date Details Comments Source Future Scheduled Test 1988-08-25 00:00:00 COVID-19 Vaccination MD Lam (1) [code = COVID-19 Vaccination (1)] Encounters Start End Encounter Admission Attending Care Care Encounter Source Date/Time Date/Time Type Type Clinicians Facility Department ID 2020-12-20 2020-12-20 Outpatient ODALIS, [facility] [id number] [place] 00:00:00 00:00:00 KRISTAL [address] 2020-12-19 2020-12-19 Outpatient ODALIS, [facility] [id number] [place] 00:00:00 00:00:00 KRISTAL [address] 2020-11-26 2020-11-26 Outpatient ODALIS, [facility] [id number] [place] 00:00:00 00:00:00 KRISTAL [address] 2020-06-28 2020-06-28 Outpatient ODALIS, [facility] [id number] [place] 00:00:00 00:00:00 KRISTAL [address] 2020-05-02 2020-05-02 Emergency ER [facility] Emergency [id number] [facility] 07:18:00 07:18:00 2020-04-25 2020-04-25 Outpatient ODALIS, [facility] [id number] [place] 00:00:00 00:00:00 KRISTAL [address] 2020-03-28 2020-03-28 Outpatient ODALIS, [facility] [id number] [place] 00:00:00 00:00:00 KRISTAL [address] 2020-03-01 2020-03-01 Outpatient REJI, [facility] [id number] [place] 00:00:00 00:00:00 MAHI [address] 2020-03-01 2020-03-01 Outpatient REJI, [facility] [id number] [place] 00:00:00 00:00:00 MAHI [address] 2020-03-01 2020-03-01 Outpatient REJI, [facility] [id number] [place] 00:00:00 00:00:00 MAHI [address] 2020-01-19 2020-01-19 Outpatient MHIE MHIE [id number] [facility] 09:00:00 09:00:00 00 bettye Matos 2020-01-05 2020-01-07 Phone nullFlavo MNA [id number] [facility] 19:44:37 04:59:59 Message r Neuroscienc 01 l gee [facility] 2019-12-19 2019-12-19 Outpatient RUBENS CHAPA MDA MDA [id number] 00:00:00 00:00:00 Cosmo rios 2019-12-19 2019-12-19 Outpatient MARIANELA FREY, MDA MDA [id number] MD 00:00:00 00:00:00 ARYA rios 2019-12-18 2019-12-18 Outpatient ODALIS, [facility] [id number] [place] 00:00:00 00:00:00 KRISTAL 376 [facility] i 2019-12-18 2019-12-18 Outpatient ODALIS, [facility] [id number] [place] 00:00:00 00:00:00 KRISTAL 377 [facility] i 2019-12-18 2019-12-18 Outpatient ODALIS, [facility] [id number] [place] 00:00:00 00:00:00 KRISTAL [address] 2019-12-12 2019-12-12 Outpatient MARIANELA MORALES, MDA MDA [id number] 00:00:00 00:00:00 KRISTAL rios 2019-12-12 2019-12-12 Outpatient MARIANELA MORALES, MDA MDA [id number] 00:00:00 00:00:00 KRISTAL rios 2019-12-12 2019-12-12 Outpatient RUBENS RUFF MDA MDA [id number] 00:00:00 00:00:00 Cosmo rios 2019-12-05 2019-12-07 Phone nullFlavo MNA [id number] [facility] 15:24:31 04:59:59 Message r Neuroscikaylee 00 [facility] 2019-06-15 2019-06-15 Outpatient ODALIS, [facility] [id number] [place] 00:00:00 00:00:00 KRISTAL 830 [facility] i 2018-03-17 2018-03-18 Emergency nullFlavo [facility] [id number] [facility] 19:43:00 06:28:00 radha Shaw [facility] 2018-01-29 2018-01-29 Emergency EL MDA MDA [id number] MD 06:35:18 06:35:18 Cosmo rios 2017-10-11 2017-10-13 Inpatient nullFlavo [facility] [id number] [facility] 16:29:00 20:10:00 radha Shaw [facility] 2017-07-12 2017-07-12 Kahlil Mcmullen, [facility] [place] - [id number] [facility] 00:00:00 00:00:00 MD: [id number] [facility] Practice - [address], [facility] [address] , Ph. 2017-06-24 2017-06-24 Kahlil Mcmullen, [facility] [place] - [id number] [facility] 00:00:00 00:00:00 MD: [id number] [facility] Practice - [address], [facility] [address] , Ph. 2017-05-27 2017-05-27 Kahlil Mcmullen, [facility] [place] - [id number] [facility] 00:00:00 00:00:00 MD: [id number] [facility] Practice - e [address], [facility] [address] , Ph. 2016-12-17 2016-12-17 Manolo G [facility] [place] - [id number] V illage 00:00:00 00:00:00 [facility]in [facility]oy MD: [id number] [facility] [address], [facility] [address], [place] [address] , Ph. 2016-05-29 2016-05-29 Kahlil Mcmullen, [facility] [place] - [id number] [facility] 00:00:00 00:00:00 MD: [id number] [facility]incorey ly [facility] Practice - e [address], [facility] [address] , Ph. Results Test Description Test Time Test Comments Results Result [facility] e Comments CT, ABDOMEN 2020-05-02 Unlisted Reason 08:48:00 for Exam - Click Yes and [facility] Enter Reason [facility] Below->[facility] CENTERName: DOMINGO, this procedure BRADEN PERKINS require oral : 1985 contrast?->No Sex: F FI NAL REPORT TECHNIQUE: CT of the abdomen and pelvis WITHOUT intravenous contrast and WITHOUT oral contrast. Dose modulation, iterative reconstruction, and/or weight-based adjustment of the mA/kV was utilized to reduce the radiation dose to as low as reasonably achievable. INDICATION: Left lower quadrant abdominal pain. COMPARISON: None. FINDINGS: ABSENCE OF INTRAVENOUS CONTRAST DECREASES SENSITIVITY FOR DETECTION OF FOCAL LESIONS AND VASCULAR PATHOLOGY. LOWER THORAX: Unremarkable. HEPATOBILIARY: No focal hepatic lesions. Gallbladder is unremarkable. No biliary ductal dilatation.SPLEEN: No splenomegaly.PANCREAS : No focal masses or ductal dilatation. ADRENALS: No adrenal nodules.KIDNEYS/URETE RS: No hydronephrosis, stones, or solid mass lesions.PELVIC ORGANS/BLADDER: Prior hysterectomy. Urinary bladder is incompletely distended which limits evaluation.. PERITONEUM/RETROPERIT ONEUM: No free air or fluid.LYMPH NODES: No lymphadenopathy.VESSE LS: Mild atherosclerotic calcifications of the abdominal aorta and branch vessels. No evidence of aneurysmal dilation.. GI TRACT: No distention or wall thickening. Appendix is normal. No significant colonic diverticulosis. BONES AND SOFT TISSUES: Mild degenerative changes in the spine. No suspicious osseous lesion.. IMPRESSION:No acute intra-abdominal or intrapelvic abnormality. Status post hysterectomy.. Signed: Kanwal Dee MDReport Verified Date/Time: 05/02/2020 08:48:17 Reading Location: [address] Ortho Consult Reading Room , SHOULDER, 2018-09-22 Reason for FINAL REPORT PATIENT COMPLETE (MIN 2 14:10:00 exam:->SHOULDER ID: [id number] VIEWS), RIGHT INJURY Clinical Diagnosis: Shoulder injury Comparison: No comparison Views: Three views of the right shoulder Report:There is no evidence of a fracture, dislocation or radiopaque foreign body. There is no evidence of a lytic bone lesion. The bone mineralization is normal. The soft tissues are unremarkable. Impression:No osseous abnormality visualized at the right shoulder joint. Signed: Shalini Duke MDReport Verified Date/Time: 09/22/2018 14:10:10 Reading Location: [facility] C013 Consult Reading Room - MRI L-SPINE W/O 2018-08-08 FAX: Baron Moreno CONT 15:26:00 Sukh CARDONA [phone] [place]: St: [facility] FAX: London Ahumada DO [phone] Patient Name: BRADEN LANE Unit No: [id number] EXAMS: CPT CODE: [id number] MRI L-SPINE W/O CONT 20063 Location: T 18 MRI lumbar spine, 08/08/18 TECHNIQUE: MRI assessment of the lumbosacral spine without contrast was performed on a high field magnet. Multiplanar and multisequence technique acquired. COMPARISON EXAMS: CT examination of the lumbar spine 08/08/18 CLINICAL HISTORY: L5-S1 impingement. Patient presenting to the emergency room with lower back pain. FINDINGS: Five kdu-awt-[id number] lumbar appearing bodies are presumed for the purpose of this dictation in this patient with normal alignment identified. The 1st conical appearing body is being denoted as S1. The conus medullaris terminates at L1-L2 and appears unremarkable. No signal alteration within the cord. Canal is adequate . There is loss of disc space height with high intensity zone disc at L4-L5 consistent with an annular fissure. Degenerative disc changes and endplate changes also seen at L5-S1. Do not see a significant finding at T12/L1 or at L1-L2. At L2-L3, there is a small amount of fluid tracking along the facet joints with mild hypertrophy of the facet joints without synovial cyst formation or ventral epidural defect. Mild facet arthropathy without significant ventral epidural defect or stenosis at L3-L4. At L4-L5, there is presence of a broad-based central/right paracentral protrusion. This exhibits mild inferior migration in reference to the disc space on sagittal T2-weighted imaging measuring approximately 12 mm in cc dimension and approximately 5 mm AP dimension deforming the right greater then left L5 nerve root sleeve in its lateral recess. It is accompanied by hypertrophy of the facet joints and mild ligament flavum atrophy. Small degree of compromise of the canal on the right side. Right more so than left lateral recess narrowing is seen. This does contact but does not displacing the left L5 nerve root sleeve in its neural foramina. There is left greater right foraminal encroachment. At L5/S1, spondylotic bulge of the anulus lateralizing to the left of 4 mm contacting the left L5 nerve root sleeve in its neural foramina with minimal deformity. There is left greater right foraminal narrowing. Also identified at this level is a focal central [facility] NAME: BRADEN LANE [address] [place] [address] PHYS: [place], [place] [address] : 1985 AGE: 32 SEX: F LOC: JORDAN Lopez PHONE #: [phone] EXAM DATE: 08/08/2018 STATUS: ADM IN FAX #: [phone] RAD NO: DC Dt: PAGE 1 Signed Report (CONTINUED) FAX: Baron Moreno MD [phone] [place]: E St: ADM FAX: London Ahumada DO [phone] Patient Name: BRADEN LANE Unit No: [id number] EXAMS: CPT CODE: [id number] MRI L-SPINE W/O CONT 33556 <Continued> protrusion protrudes 4 mm, without displacement of the S1 nerve sleeves and without compromise of the canal IMPRESSION: Compromise of the canal due to constellation findings at L4-L5 with a broad-based protrusion lateralizing to the right deforming the right greater left L5 nerve root sleeve. Right more so than left lateral recess narrowing at this level Focal central protrusion at L5-S1 without displacement of the S1 nerve root sleeves. Associated spondylotic bulge of the annulus with lateralization left foraminally with left greater right foraminal encroachment. The bulge does appear to contact the left L5 nerve root sleeve inferiorly in its foramina with mild deformity at 1526 Reported and signed by: Debra Thorne M.D. CC: Baron Lopez Dictated Date/Time: 08/08/2018 (1526)Technologist: Lm Landis Transcribed Date/Time: 08/08/2018 (1526) By: [email or web address] Orig Print D/T: S: 08/08/2018 (1522) EMELI Leavitt NAME: [address] PHYS: Baron Manriquez, [place] [address] : 1985 AGE: 32 SEX: F LOC: JORDAN 5 PHONE #: [phone] EXAM DATE: 08/08/2018 STATUS: ADM IN FAX #: [phone] RAD NO: DC Dt: PAGE 2 Signed Report BASIC METABOLIC PANEL 2018-08-08 14:02:00 Test Item Value Reference Range Interpretation Comme nts SODIUM (test code = NA) 139.0 mmol/L 133-144 N POTASSIUM (test code = K) 3.9 mmol/L 3.5-5.1 N CHLORIDE (test code = CL) 109 mmol/L 95-105 H CARBON DIOXIDE (test code 24 mmol/L 21-32 N = CO2) ANION GAP (test code = 6.0 GAP calc 4.0-15.0 N GAP) GLUCOSE (test code = GLU) 85 MG/DL 70-110 N BLOOD UREA NITROGEN (test 13 MG/DL 7-18 N code = BUN) CREATININE (test code = 0.92 MG/DL 0.55-1.30 N Resu lts may be depressed CREAT) if patient is takingN-Acetylc ysteine (NAC) and Metam izole (Dipyrone). CALCIUM (test code = CA) 8.7 MG/DL 8.5-10.1 N INDEX HEMOLYSIS (test code 1 NORMAL <10 MG 1 NORMAL = HEMINDEX) Index/DL INDEX ICTERIC (test code = 1 NORMAL <2 MG 1 NORMAL ICTINDEX) Index/DL INDEX LIPEMIA (test code = 1 NORMAL <50 MG 1 NORMAL LIPINDEX) Index/DL CBC W/AUTO [id number] 13:31:00 Test Item Value Reference Range Interpretation Comments WHITE BLOOD CELL (test code = 10.0 K/mm3 4.1-12.1 N WBC) RED BLOOD CELL (test code = RBC) 4.11 M/mm3 3.8-5.5 N HEMOGLOBIN (test code = HGB) 12.2 G/DL 10.6-15.8 N HEMATOCRIT (test code = HCT) 36.9 % 31.8-47.4 N MEAN CELL VOLUME (test code = 89.8 fL 80.1-101.1 N MCV) MEAN CELL HGB (test code = MCH) 29.7 pg 25.3-35.3 N MEAN CELL HGB CONCETRATION (test 33.1 G/DL 32.7-35.1 N code = MCHC) RED CELL DISTRIBUTION WIDTH 14.3 % 12.2-16.4 N (test code = RDW) RED CELL DISTRIBUTION WIDTH 46.8 fL 36.4-46.3 H (test code = RDW-SD) PLATELET COUNT (test code = PLT) 310 K/mm3 155-337 N MEAN PLATELET VOLUME (test code 9.6 fL 6.8-11.2 N = MPV) GRANULOCYTE % (test code = GR%) 69.2 % 37.8-82.6 N IMMATURE GRANULOCYTE % (test 0.3 % 0.0-2.0 N code = IG%) LYMPHOCYTE % (test code = LY%) 17.4 % 14.1-45.4 N MONOCYTE % (test code = MO%) 5.7 % 2.5-11.7 N EOSINOPHIL % (test code = EO%) 6.3 % 0.0-6.2 H BASOPHIL % (test code = BA%) 1.1 % 0.0-2.1 N NUCLEATED RBC % (test code = 0.0 /100WBC% 0.0-1.0 N NRBC%) GRANULOCYTE # (test code = GR#) 6.91 k/mm3 2.0-13.7 N IMMATURE GRANULOCYTE # (test 0.03 K/mm3 0.00-0.03 N code = IG#) LYMPHOCYTE # (test code = LY#) 1.74 K/mm3 0.6-3.8 N MONOCYTE # (test code = MO#) 0.57 K/mm3 0.11-0.59 N EOSINOPHIL # (test code = EO#) 0.63 K/mm3 0.0-0.4 H BASOPHIL # (test code = BA#) 0.11 K/mm3 0.0-0.1 H NUCLEATED RBC # (test code = 0.00 K/mm3 0.0-0.05 N NRBC#) - CT T-SPINE W/O [id number] 12:05:00 Patient Name: BRADEN LANE Unit No: [id number] EXAMS: CPT CODE: [id number] CT T-SPINE W/O CONTRAST [address]186 CT thoracic spine without contrast CT lumbar spine without contrast HISTORY: Back pain. COMMENT: Multidetector noncontrast slices through the thoracic and lumbar spine were obtained without intravenous contrast and sagittal and coronal reformatting performed. Dose lowering technique with automatic exposure control utilized. Vertebral body heights and alignment are well-preserved. Disc space heights are preserved, with minimal narrowing in the upper thoracic spine. No definite acute osseous abnormality detected. Costovertebral margins are within normal limits. Thereis normal vertebral body alignment and vertebral body height. Mild disc space narrowing at L5-S1 noted. No prevertebral or paravertebral soft tissue swelling is present. At L5-S1, a 5 mm broad-based bulge indents the ventral thecal sac, minimally contacting the descending left L5 nerve root in the lateral recess. Foramina are patent. Impression: 1. No acute osseous abnormality detected. 2. At L5-S1, a broad-basedbulge minimally contacts the descending left L5 nerve root in the lateral recess. at 1205 Reported and signed by: Darwin Reich M.D. CC: Federico Estrada [employer] Dictated Date/Time: 08/08/2018 (4945) Technologist: Alexandro Corbett CTDI: 14.00 DLP: 756.63 Trnscrpt: 08/08/2018 (2494) [email or web address] EMELI Leavitt NAME:[address] PHYS: NICOLE Slater Federico Estrada NP [place] [address] : 1985 AGE: 32 SEX: F LOC: [facility] PHONE #: [phone] EXAM DATE: 08/08/2018 STATUS: REG ER FAX #: [phone] RAD #: D/C DT PAGE 1 Signed Report Patient Name: BRADEN LANE Unit No: [id number] EXAMS: CPT CODE: [id number] CT T-SPINE W/O CONTRAST [address]161 <Continued> Orig Print D/T: S: 08/08/2018 (5488) EMELI Leavitt NAME: [address] PHYS: NICOLE Slater Federico Estrada [place] [address] : 1985 AGE: 32 SEX: F : GabrielleERS PHONE #: [phone] EXAM DATE: 08/08/2018 STATUS: REG ER FAX #: [phone] RAD #: D/C DT PAGE 2 Signed Report- CT L-SPINE W/O [id number] 12:04:00 Patient Name: BRADEN LANE Unit No: [id number] EXAMS: CPT CODE: [id number] CT L-SPINE W/O CONTRAST [address]106 CT thoracic spine without contrast CT lumbar spine without contrast HISTORY: Back pain. COMMENT: Multidetector noncontrast slices through the thoracic and lumbar spine were obtained without intravenous contrast and sagittal and coronal reformatting performed. Dose lowering technique with automatic exposure control utilized. Vertebral body heights and alignment are well-preserved. Disc space heights are preserved, with minimal narrowing in the upper thoracic spine. No definite acute osseous abnormality detected. Costovertebral margins are within normal limits. Thereis normal vertebral body alignment and vertebral body height. Mild disc space narrowing at L5-S1 noted. No prevertebral or paravertebral soft tissue swelling is present. At L5-S1, a 5 mm broad-based bulge indents the ventral thecal sac, minimally contacting the descending left L5 nerve root in the lateral recess. Foramina are patent. Impression: 1. No acute osseous abnormality detected. 2. At L5-S1, a broad-basedbulge minimally contacts the descending left L5 nerve root in the lateral recess. at 1204 Reported and signed by: Darwin Reich M.D. CC: Federico Estrada NP Dictated Date/Ti me: 08/08/2018 (0249) Technologist: Alexandro Corbett CTDI: DLP: Trnscrpt: 08/08/2018 (8323) [email or web address] EMELI Leavitt NAME:BRADEN LANE [address] [place] [address] PHYS: Federico Temple NP [place] [address] : 1985 AGE: 32 SEX: F LOC: [facility] PHONE #: [phone] EXAM DATE: 08/08/2018 STATUS: REG ER FAX #: [phone] RAD #: D/C DT PAGE 1 Signed Report Patient Name: BRADEN LANE Unit No: [id number] EXAMS: CPT CODE: [id number] CT L-SPINE W/O CONTRAST 51251 <Continued> Orig Print D/T: S: 08/08/2018 (1057) EMELI Leavitt NAME: BRADEN L[address] [place] [address] PHYS: Federico Temple NP [place] [address] : 1985 AGE: 32 SEX: F : GabrielleERS PHONE #: [phone] EXAM DATE: 08/08/2018 STATUS: REG ER FAX #: [phone] RAD #: D/C DT PAGE 2 Signed ReportCARDISeamlessDocs [id number] 00:05:00 Test Item Value Reference Range Interpretation Comments Total CK (test code = Total CK) 89 12-191 [facility] [id number] 00:05:00 Test Item Value Reference Range Interpretation Comments Troponin-I (test code no gt See_Comment [Auto mated message] The = Troponin-I) system which g enerated this result transmit susanne reference range : <=0.40. The reference r yessenia was not used to interpr et this result as ingrid l/abnormal. [facility] [employer]2018-11-30 00:05:00 Test Item Value Reference Range Interpretation Comments BNP (test code = BNP) 34 [facility] [employer] [id number] 00:05:00 Test Item Value Reference Range Interpretation Comments eGFR (test code = eGFR) 66 [facility] [employer]2018-11-30 00:05:00 Test Item Value Reference Range Interpretation Comments AST (test code = AST) 17 See_Comment [Auto mated message] The system which ge nerated this result transmit susanne reference range : <=37. The reference range was not used to interpr et this result as ingrid l/abnormal. [facility] [employer]2018-11-30 00:05:00 Test Item Value Reference Range Interpretation Comments Total Protein (test code = Total 7.4 6.4-8.4 Protein) [facility] [employer]2018-11-30 00:05:00 Test Item Value Reference Range Interpretation Comments Albumin Lvl (test code = Albumin Lvl) 3.7 3.5-5.0 [facility] [employer] [id number] 00:05:00 Test Item Value Reference Range Interpretation Comments ALT (test code = ALT) 15 See_Comment [Auto mated message] The system which ge nerated this result transmit susanne reference range : <=65. The reference range was not used to interpr et this result as ingrid l/abnormal. [facility] [employer]2018-11-30 00:05:00 Test Item Value Reference Range Interpretation Comments Calcium Lvl (test code = Calcium Lvl) 8.9 8.5-10.5 [facility] [employer] [id number] 00:05:00 Test Item Value Reference Range Interpretation Comments Alk Phos (test code = Alk Phos) 85 39-136 [facility]2018-11-30 00:05:00 Test Item Value Reference Range Interpretation Comments Bili Total (test code = Bili Total) 0.2 0.2-1.3 [facility]2018-11-30 00:05:00 Test Item Value Reference Range Interpretation Comments Glucose Lvl (test code = Glucose Lvl) 76 70-99 [facility]2018-11-30 00:05:00 Test Item Value Reference Range Interpretation Comments Sodium Lvl (test code = Sodium Lvl) 140 135-145 [facility]2018-11-30 00:05:00 Test Item Value Reference Range Interpretation Comments Potassium Lvl (test code = Potassium 3.8 3.5-5.1 Lvl) [facility]2018-11-30 00:05:00 Test Item Value Reference Range Interpretation Comments Chloride Lvl (test code = Chloride Lvl) 106 95-109 [facility]2018-11-30 00:05:00 Test Item Value Reference Range Interpretation Comments CO2 (test code = CO2) 26 24-32 [facility]2018-11-30 00:05:00 Test Item Value Reference Range Interpretation Comments BUN (test code = BUN) 11 7-22 [facility]2018-11-30 00:05:00 Test Item Value Reference Range Interpretation Comments Creatinine Lvl (test code = Creatinine 1.09 0.50-1.40 Lvl) [facility]2018-11-30 00:05:00 Test Item Value Reference Range Interpretation Comments Globulin (test code = Globulin) 3.7 2.7-4.2 [facility]2018-11-30 00:05:00 Test Item Value Reference Range Interpretation Comments A/G Ratio (test code = A/G Ratio) 1.0 1 0.7-1.6 [facility]2018-11-30 00:05:00 Test Item Value Reference Range Interpretation Comments AGAP (test code = AGAP) 11.8 10.0-20.0 [facility]2018-11-30 00:05:00 Test Item Value Reference Range Interpretation Comments B/C Ratio (test code = B/C Ratio) 10 1 6-25 [facility] [id number] 00:05:00 Test Item Value Reference Range Interpretation Comments Lipase Lvl (test code = Lipase Lvl) 738 37-393 [place] 27612018-11-30 00:05:00 Test Item Value Reference Range Interpretation Comments S Preg (test code = S Negative *NA*(03/17/18 Preg) 6:05 PM) [facility]NhjsmhmJQRKZPCXGJ5488-31-68 00:05:00 Test Item Value Reference Range Interpretation Comments Monocytes (test code = Monocytes) 4.2 2.0-12.0 [facility] CenterEplkcfuCIPUJDJOPY3182-07-39 00:05:00 Test Item Value Reference Range Interpretation Comments Lymphocytes (test code = Lymphocytes) 18.8 20.0-40.0 [facility] CenterOzhfsfgNDQHKNMWBC3583-38-29 00:05:00 Test Item Value Reference Range Interpretation Comments Segs (test code = Segs) 67.1 45.0-75.0 [facility] CenterBrkeqtiWTCQRTUHMU4362-21-60 00:05:00 Test Item Value Reference Range Interpretation Comments Basophils # (test code 0.1 See_Comment [Aut omated message] The = Basophils #) system which generated this result tra nsmitted reference range : <=0.2. The reference r yessenia was not used to int erpret this result as normal/abnormal . [facility] CenterUdcejnfBOWSLUUTVB0172-46-69 00:05:00 Test Item Value Reference Range Interpretation Comments Eosinophils # (test code 1.1 See_Comment [A utomated message] The = Eosinophils #) system whic h generated this result tra nsmitted reference range : <=0.5. The reference r yessenia was not used to int erpret this result as normal/abnormal . [facility] CenterIbbrpuySDHGFMGPEK4427-87-39 00:05:00 Test Item Value Reference Range Interpretation Comments Monocytes # (test code 0.5 See_Comment [Aut omated message] The = Monocytes #) system which generated this result tra nsmitted reference range : <=0.8. The reference r yessenia was not used to int erpret this result as normal/abnormal . [facility] CenterOjzfzsqVUVYXULWVQ2579-16-09 00:05:00 Test Item Value Reference Range Interpretation Comments Lymphocytes # (test code = Lymphocytes 2.2 1.0-5.5 #) [facility] CenterSqdwohrOQZONVYBQX3050-80-08 00:05:00 Test Item Value Reference Range Interpretation Comments Neutrophils # (test code = Neutrophils 7.7 1.5-8.1 #) [facility] CenterSizeqvsANYMPKNLRN6766-71-52 00:05:00 Test Item Value Reference Range Interpretation Comments Basophils (test code = 0.7 See_Comment [Aut omated message] The Basophils) system which ge nerated this result tra nsmitted reference range : <=1.0. The reference r yessenia was not used to int erpret this result as normal/abnormal . [facility] CenterDjvnkymAKJDIHHYNF9070-91-53 00:05:00 Test Item Value Reference Range Interpretation Comments Eosinophils (test code = 9.2 See_Comment [A utomated message] The Eosinophils) system which ge nerated this result tra nsmitted reference range : <=4.0. The reference r yessenia was not used to int erpret this result as normal/abnormal . [facility] CenterAeqtnltLNTPQEOLRC9574-47-86 00:05:00 Test Item Value Reference Range Interpretation Comments MPV (test code = MPV) 8.5 7.4-10.4 [facility] CenterHxqngoqHLDBNNYUJH5990-96-35 00:05:00 Test Item Value Reference Range Interpretation Comments Platelet (test code = Platelet) 362 133-450 [facility] CenterIsiiuisLYKCSJCQUD2667-61-05 00:05:00 Test Item Value Reference Range Interpretation Comments RDW (test code = RDW) 14.7 11.5-14.5 [facility] CenterNyivwtiANJXDZUJKG8009-25-81 00:05:00 Test Item Value Reference Range Interpretation Comments MCHC (test code = MCHC) 33.1 32.0-36.0 [facility] CenterVsmvmbcPQBMROKNQI3047-88-51 00:05:00 Test Item Value Reference Range Interpretation Comments MCV (test code = MCV) 87.6 80.0-98.0 [facility] CenterMqzsbbzIWIYQEOCJR9304-29-85 00:05:00 Test Item Value Reference Range Interpretation Comments Hgb (test code = Hgb) 12.5 12.0-16.0 [facility] CenterWmbmekmQYLCBJPVSZ6452-88-40 00:05:00 Test Item Value Reference Range Interpretation Comments MCH (test code = MCH) 29.0 pg 27.0-31.0 [facility] CenterKycxzhpUSBBCUUXUI3671-05-80 00:05:00 Test Item Value Reference Range Interpretation Comments Hct (test code = Hct) 37.7 36.0-48.0 [facility] CenterWtnrrhtQYOXRPPVTA6482-52-92 00:05:00 Test Item Value Reference Range Interpretation Comments RBC (test code = RBC) 4.31 4.20-5.40 [facility] CenterIvpkirfVAQGLRZMXQ9921-86-12 00:05:00 Test Item Value Reference Range Interpretation Comments WBC (test code = WBC) 11.5 3.7-10.4 [facility] AND [id number] 21:36:00 Test Item Value Reference Range Interpretation Comments UA Leuk Est (test Negative (03/17/18 3:36 code = UA Leuk Est) PM) [facility] AND [id number] 21:36:00 Test Item Value Reference Range Interpretation Comments UA Nitrite (test code Negative (03/17/18 3:36 = UA Nitrite) PM) [facility] AND [id number] 21:36:00 Test Item Value Reference Range Interpretation Comments UA Sq Epi (test code = UA Sq Epi) Many /LPF [facility] AND [id number] 21:36:00 Test Item Value Reference Range Interpretation Comments UA WBC (test code = 1 See_Comment [Automa susanne message] The UA WBC) system which ge nerated this result transmit susanne reference range : <=5. The reference range was not used to interpr et this result as ingrid l/abnormal. [facility] AND [id number] 21:36:00 Test Item Value Reference Range Interpretation Comments UA Bacteria (test code = UA Occasional /HPF Bacteria) [facility] AND [id number] 21:36:00 Test Item Value Reference Range Interpretation Comments UA RBC (test code = 3 See_Comment [Automa susanne message] The UA RBC) system which ge nerated this result transmit susanne reference range : <=2. The reference range was not used to interpr et this result as ingrid l/abnormal. [facility] AND [id number] 21:36:00 Test Item Value Reference Range Interpretation Comments UA Hyal Cast (test 4 See_Comment [Automat ed message] The code = UA Hyal Cast) system which generated this result transmit susanne reference range : <=2. The reference range was not used to interpr et this result as ingrid l/abnormal. [facility] AND [id number] 21:36:00 Test Item Value Reference Range Interpretation Comments UA Mucus (test code = UA Mucus) Moderate /LPF [facility] AND [id number] 21:36:00 Test Item Value Reference Range Interpretation Comments UA Glucose (test code = UA Negative mg/dL Glucose) [facility] AND [id number] 21:36:00 Test Item Value Reference Range Interpretation Comments UA Bili (test code = Negative *NA*(03/17/18 UA Bili) 3:36 PM) [facility] AND [id number] 21:36:00 Test Item Value Reference Range Interpretation Comments UA Protein (test code = UA Protein) 20 mg/dL [facility] AND [id number] 21:36:00 Test Item Value Reference Range Interpretation Comments UA Blood (test code = Negative (03/17/18 3:36 UA Blood) PM) [facility] AND [id number] 21:36:00 Test Item Value Reference Range Interpretation Comments UA Urobilinogen (test code = UA 2.0 0.1-1.0 Urobilinogen) [facility] AND [id number] 21:36:00 Test Item Value Reference Range Interpretation Comments UA Ketones (test code = UA Trace mg/dL Ketones) [facility] AND [id number] 21:36:00 Test Item Value Reference Range Interpretation Comments UA pH (test code = UA pH) 6.0 1 5.0-8.0 [facility] AND [id number] 21:36:00 Test Item Value Reference Range Interpretation Comments UA Turbidity (test code = Clear (03/17/18 3:36 UA Turbidity) PM) [facility] AND [id number] 21:36:00 Test Item Value Reference Range Interpretation Comments UA Spec Grav (test code = UA Spec 1.026 1 Grav) [facility] AND [id number] 21:36:00 Test Item Value Reference Range Interpretation Comments UA Color (test code = Dark Yellow UA Color) *NA*(03/17/18 3:36 PM) [facility] [id number] 18:00:00 Test Item Value Reference Range Interpretation Comments Troponin-I (test code no gt See_Comment [Auto mated message] The = Troponin-I) system which g enerated this result transmit susanne reference range : <=0.40. The reference r yessenia was not used to interpr et this result as ingrid l/abnormal. [facility] [id number] 15:29:00 Test Item Value Reference Range Interpretation Comments C difficile DNA (test Negative (10/12/17 code = C difficile DNA) 10:29 AM) [facility] HospitalAct[facility] [id number] 14:55:00 Test Item Value Reference Range Interpretation Comments eGFR (test code = eGFR) 80 [facility]2018-06-26 14:55:00 Test Item Value Reference Range Interpretation Comments Calcium Lvl (test code = Calcium Lvl) 8.1 8.5-10.5 [facility]2018-06-26 14:55:00 Test Item Value Reference Range Interpretation Comments AGAP (test code = AGAP) 7.7 10.0-20.0 [facility] [id number] 14:55:00 Test Item Value Reference Range Interpretation Comments Sodium Lvl (test code = Sodium Lvl) 148 135-145 [facility] [id number] 14:55:00 Test Item Value Reference Range Interpretation Comments Creatinine Lvl (test code = Creatinine 0.93 0.50-1.40 Lvl) [facility]2018-06-26 14:55:00 Test Item Value Reference Range Interpretation Comments BUN (test code = BUN) 7 7-22 [facility]2018-06-26 14:55:00 Test Item Value Reference Range Interpretation Comments CO2 (test code = CO2) 21 24-32 [facility] [id number] 14:55:00 Test Item Value Reference Range Interpretation Comments Potassium Lvl (test code = Potassium 3.7 3.5-5.1 Lvl) [facility]2018-06-26 14:55:00 Test Item Value Reference Range Interpretation Comments Chloride Lvl (test code = Chloride Lvl) 123 95-109 [facility]2018-06-26 14:55:00 Test Item Value Reference Range Interpretation Comments Glucose Lvl (test code = Glucose Lvl) 83 70-99 [facility] CenterKfljxcfSVHWALKFER9008-79-15 14:55:00 Test Item Value Reference Range Interpretation Comments WBC (test code = WBC) 10.8 3.7-10.4 [facility] CenterYqwueogOYKBMXIPWM2872-58-78 14:55:00 Test Item Value Reference Range Interpretation Comments RBC (test code = RBC) 3.75 4.20-5.40 [facility] [id number] 14:55:00 Test Item Value Reference Range Interpretation Comments Hgb (test code = Hgb) 11.4 12.0-16.0 [facility] CenterSpggcyqONVYALCTIB6171-57-24 14:55:00 Test Item Value Reference Range Interpretation Comments MPV (test code = MPV) 8.4 7.4-10.4 [facility] CenterMeocihzDQGXVVCFNB3943-91-51 14:55:00 Test Item Value Reference Range Interpretation Comments Hct (test code = Hct) 34.7 36.0-48.0 [facility] CenterPcahlarYKTPXOYBMZ5707-67-12 14:55:00 Test Item Value Reference Range Interpretation Comments MCV (test code = MCV) 92.5 80.0-98.0 [facility] CenterTqxmkfhJFJRKDYDCA2401-59-58 14:55:00 Test Item Value Reference Range Interpretation Comments MCHC (test code = MCHC) 32.8 32.0-36.0 [facility] CenterQlnsifsAFHCALXGMS6051-30-61 14:55:00 Test Item Value Reference Range Interpretation Comments MCH (test code = MCH) 30.4 pg 27.0-31.0 [facility] CenterOgbhaepZWTKLYIWLD6141-57-74 14:55:00 Test Item Value Reference Range Interpretation Comments RDW (test code = RDW) 14.5 11.5-14.5 [facility] CenterUsksypzJAXNDNOUPE2005-79-03 14:55:00 Test Item Value Reference Range Interpretation Comments Platelet (test code = Platelet) 242 133-450 [facility] CenterQgdfrctFXCJKYCPGQ8911-88-65 14:55:00 Test Item Value Reference Range Interpretation Comments Lymphocytes # (test code = Lymphocytes 1.0 1.0-5.5 #) [facility] CenterRkmkrvrEANGHJDTVN0272-54-30 14:55:00 Test Item Value Reference Range Interpretation Comments Segs-Bands # (test code = Segs-Bands #) 8.6 1.5-8.1 [facility] CenterTpvvifaAZPAXGRPFW6817-69-54 14:55:00 Test Item Value Reference Range Interpretation Comments Monocytes # (test code 0.3 See_Comment [Aut omated message] The = Monocytes #) system which generated this result tra nsmitted reference range : <=0.8. The reference r yessenia was not used to int erpret this result as normal/abnormal . [facility] CenterIkfuifaGMKSNJSWGF8006-59-61 14:55:00 Test Item Value Reference Range Interpretation Comments Basophils # (test code 0.1 See_Comment [Aut omated message] The = Basophils #) system which generated this result tra nsmitted reference range : <=0.2. The reference r yessenia was not used to int erpret this result as normal/abnormal . [facility] CenterMrtnzdeLOMFKBWMBY5150-17-80 14:55:00 Test Item Value Reference Range Interpretation Comments Eosinophils # (test code 0.8 See_Comment [A utomated message] The = Eosinophils #) system whic h generated this result tra nsmitted reference range : <=0.5. The reference r yessenia was not used to int erpret this result as normal/abnormal . [facility] CenterQvfuntdKWILRXJYLS9896-37-67 14:55:00 Test Item Value Reference Range Interpretation Comments Lymphocytes (test code = Lymphocytes) 9.4 20.0-40.0 [facility] CenterNhkzxswOOPFOCJMEH7509-71-67 14:55:00 Test Item Value Reference Range Interpretation Comments Monocytes (test code = Monocytes) 3.2 2.0-12.0 [facility] CenterTvvgibeLUDUQMGEOX5946-04-87 14:55:00 Test Item Value Reference Range Interpretation Comments Eosinophils (test code = 7.3 See_Comment [A utomated message] The Eosinophils) system which ge nerated this result tra nsmitted reference range : <=4.0. The reference r yessenia was not used to int erpret this result as normal/abnormal . [facility] CenterDdncmynRZHNQDWHAG5434-15-05 14:55:00 Test Item Value Reference Range Interpretation Comments Basophils (test code = 0.7 See_Comment [Aut omated message] The Basophils) system which ge nerated this result tra nsmitted reference range : <=1.0. The reference r yessenia was not used to int erpret this result as normal/abnormal . [facility] CenterHbzspnxPLOFAFBXLS4012-15-68 14:55:00 Test Item Value Reference Range Interpretation Comments Segs (test code = Segs) 79.4 45.0-75.0 [facility]NqjjcegJAUFBVQPZS5636-36-01 01:47:00 Test Item Value Reference Range Interpretation Comments HIV Ag/Ab 4th Gen Negative *NA*(10/11/17 (test code = HIV 8:47 PM) Ag/Ab 4th Gen) [facility] [id number] 21:36:00 Test Item Value Reference Range Interpretation Comments UDS Note (test code = See Note (10/11/17 4:36 UDS Note) PM) [facility] [id number] 21:36:00 Test Item Value Reference Range Interpretation Comments U Phencyc Scr (test Negative *NA*(10/11/17 code = U Phencyc Scr) 4:36 PM) [facility] [id number] 21:36:00 Test Item Value Reference Range Interpretation Comments U Benzodia Scr (test Positive *ABN*(10/11/17 code = U Benzodia Scr) 4:36 PM) [facility] [id number] 21:36:00 Test Item Value Reference Range Interpretation Comments U Sandie Scr (test code Negative *NA*(10/11/17 = U Sandie Scr) 4:36 PM) [facility] [id number] 21:36:00 Test Item Value Reference Range Interpretation Comments U Amph Scr (test code Negative *NA*(10/11/17 = U Amph Scr) 4:36 PM) [facility] [id number] 21:36:00 Test Item Value Reference Range Interpretation Comments U Opiate Scr (test Positive *ABN*(10/11/17 code = U Opiate Scr) 4:36 PM) [facility] [id number] 21:36:00 Test Item Value Reference Range Interpretation Comments U Cocaine Scr (test Negative *NA*(10/11/17 code = U Cocaine Scr) 4:36 PM) [facility] [id number] 21:36:00 Test Item Value Reference Range Interpretation Comments U Cannab Scr (test Positive *ABN*(10/11/17 code = U Cannab Scr) 4:36 PM) [facility] [id number] 21:36:00 Test Item Value Reference Range Interpretation Comments UA Spec Grav (test >=1.050 *ABN*(10/11/17 code = UA Spec Grav) 4:36 PM) [facility] AND [id number] 21:36:00 Test Item Value Reference Range Interpretation Comments UA Leuk Est (test Negative (10/11/17 4:36 code = UA Leuk Est) PM) [facility] AND [id number] 21:36:00 Test Item Value Reference Range Interpretation Comments UA Sq Epi (test code = UA Sq Epi) Many /LPF [facility] AND [id number] 21:36:00 Test Item Value Reference Range Interpretation Comments UA WBC (test code = 2 See_Comment [Automa susanne message] The UA WBC) system which ge nerated this result transmit susanne reference range : <=5. The reference range was not used to interpr et this result as ingrid l/abnormal. [facility] AND [id number] 21:36:00 Test Item Value Reference Range Interpretation Comments UA Nitrite (test code Negative (10/11/17 4:36 = UA Nitrite) PM) [facility] AND [id number] 21:36:00 Test Item Value Reference Range Interpretation Comments UA Mucus (test code = UA Mucus) Few /LPF [facility] AND [id number] 21:36:00 Test Item Value Reference Range Interpretation Comments UA RBC (test code = 2 See_Comment [Automa susanne message] The UA RBC) system which ge nerated this result transmit susanne reference range : <=2. The reference range was not used to interpr et this result as ingrid l/abnormal. [facility] AND [id number] 21:36:00 Test Item Value Reference Range Interpretation Comments UA pH (test code = UA pH) 6.0 1 5.0-8.0 [facility] AND [id number] 21:36:00 Test Item Value Reference Range Interpretation Comments UA Protein (test code = UA Protein) 30 mg/dL [facility] AND [id number] 21:36:00 Test Item Value Reference Range Interpretation Comments UA Turbidity (test code Slight *ABN*(10/11/17 = UA Turbidity) 4:36 PM) [facility] AND [id number] 21:36:00 Test Item Value Reference Range Interpretation Comments UA Ketones (test code = UA Trace mg/dL Ketones) [facility] [id number] 21:36:00 Test Item Value Reference Range Interpretation Comments UA Blood (test code = Negative (10/11/17 4:36 UA Blood) PM) [facility] [id number] 21:36:00 Test Item Value Reference Range Interpretation Comments UA Glucose (test code = UA Negative mg/dL Glucose) [facility] AND [id number] 21:36:00 Test Item Value Reference Range Interpretation Comments UA Bili (test code = Negative *NA*(10/11/17 UA Bili) 4:36 PM) [facility] AND [id number] 21:36:00 Test Item Value Reference Range Interpretation Comments UA Color (test code = Red *ABN*(10/11/17 4:36 UA Color) PM) [facility] AND [id number] 21:36:00 Test Item Value Reference Range Interpretation Comments UA Urobilinogen (test code = UA 2.0 0.1-1.0 Urobilinogen) [facility] [id number] 21:36:00 Test Item Value Reference Range Interpretation Comments U Preg (test code = U Negative (10/11/17 4:36 Preg) PM) [facility] [id number] 21:36:00 Test Item Value Reference Range Interpretation Comments Culture: Urine (test <10,000 CFU/mL Skin code = Culture: Urine) [facility] [id number] 21:04:00 Test Item Value Reference Range Interpretation Comments Lipase Lvl (test code = Lipase Lvl) 377 73-393 [facility] [id number] 21:04:00 Test Item Value Reference Range Interpretation Comments Procalcitonin Lvl (test 4.79 See_Comment [Au tomated message] code = Procalcitonin Lvl) Th e system which generated this result transmitted ref erence range: <=0.10. The reference range was not used to interpr et this result as normal/abnormal . [id number] 21:04:00 Test Item Value Reference Range Interpretation Comments AGAP (test code = AGAP) 10.9 10.0-20.0 [facility]XRJLA3103-[facility]-03 21:04:00 Test Item Value Reference Range Interpretation Comments B/C Ratio (test code = B/C Ratio) 7 1 6-25 [facility]PlmuvojBYLNVCDCFXZC1328-59-65 21:04:00 Test Item Value Reference Range Interpretation Comments Globulin (test code = Globulin) 3.7 2.7-4.2 [facility]JprznsmKVMEQEWBTFUX4067-13-16 21:04:00 Test Item Value Reference Range Interpretation Comments A/G Ratio (test code = A/G Ratio) 1.0 1 0.7-1.6 [id number] 21:04:00 Test Item Value Reference Range Interpretation Comments eGFR (test code = eGFR) 79 [id number] 21:04:00 Test Item Value Reference Range Interpretation Comments Albumin Lvl (test code = Albumin Lvl) 3.6 3.5-5.0 [facility][id number] 21:04:00 Test Item Value Reference Range Interpretation Comments Bili Total (test code = Bili Total) 0.6 0.2-1.3 [facility]XzzoalnSBRAHLEATRRY1506-59-16 21:04:00 Test Item Value Reference Range Interpretation Comments Alk Phos (test code = Alk Phos) 81 39-136 [facility]OlsytdcQEEXGFJUQFWO4323-03-34 21:04:00 Test Item Value Reference Range Interpretation Comments AST (test code = AST) 19 See_Comment [Auto mated message] The system which ge nerated this result transmit susanne reference range : <=37. The reference range was not used to interpr et this result as ingrid l/abnormal. [facility]BwnpsgbUADLRXSDDQRN9785-16-79 21:04:00 Test Item Value Reference Range Interpretation Comments Total Protein (test code = Total 7.3 6.4-8.4 Protein) [facility][id number] 21:04:00 Test Item Value Reference Range Interpretation Comments ALT (test code = ALT) 14 See_Comment [Auto mated message] The system which ge nerated this result transmit susanne reference range : <=65. The reference range was not used to interpr et this result as ingrid l/abnormal. [facility]KltanjlYBDRBITXVXFW1664-42-28 21:04:00 Test Item Value Reference Range Interpretation Comments Calcium Lvl (test code = Calcium Lvl) 8.9 8.5-10.5 [facility]GrrocxyXKLLVWZQNSQG3369-05-90 21:04:00 Test Item Value Reference Range Interpretation Comments Glucose Lvl (test code = Glucose Lvl) 93 70-99 [facility]SzsyplpUEQNSZULOTUY4148-71-31 21:04:00 Test Item Value Reference Range Interpretation Comments CO2 (test code = CO2) 24 24-32 [id number] 21:04:00 Test Item Value Reference Range Interpretation Comments Potassium Lvl (test code = Potassium 3.9 3.5-5.1 Lvl) [facility]QcmwoswPGEXYQMFGMLO5559-16-54 21:04:00 Test Item Value Reference Range Interpretation Comments Chloride Lvl (test code = Chloride Lvl) 111 95-109 [id number] 21:04:00 Test Item Value Reference Range Interpretation Comments BUN (test code = BUN) 7 7-22 [facility]FbmwwxbCFGGACKEGSWD4988-11-33 21:04:00 Test Item Value Reference Range Interpretation Comments Creatinine Lvl (test code = Creatinine 0.94 0.50-1.40 Lvl) [facility]XvuvcemAQIZEQTVBOVM2722-02-74 21:04:00 Test Item Value Reference Range Interpretation Comments Sodium Lvl (test code = Sodium Lvl) 142 135-145 [facility]KjtfisnXYSYDTHMGE7022-96-73 21:04:00 Test Item Value Reference Range Interpretation Comments Lymphocytes # (test code = Lymphocytes 1.1 1.0-5.5 #) [facility] CenterYnghcjoCJYSDGCGSI5831-96-30 21:04:00 Test Item Value Reference Range Interpretation Comments Monocytes # (test code 0.7 See_Comment [Aut omated message] The = Monocytes #) system which generated this result tra nsmitted reference range : <=0.8. The reference r yessenia was not used to int erpret this result as normal/abnormal . [facility] CenterJysamnpLABMHDCSMJ5814-70-83 21:04:00 Test Item Value Reference Range Interpretation Comments Basophils # (test code 0.1 See_Comment [Aut omated message] The = Basophils #) system which generated this result tra nsmitted reference range : <=0.2. The reference r yessenia was not used to int erpret this result as normal/abnormal . [facility] CenterVludgylIRJETBGDKK8690-29-06 21:04:00 Test Item Value Reference Range Interpretation Comments Eosinophils # (test code 0.4 See_Comment [A utomated message] The = Eosinophils #) system whic h generated this result tra nsmitted reference range : <=0.5. The reference r yessenia was not used to int erpret this result as normal/abnormal . [facility] [id number] 21:04:00 Test Item Value Reference Range Interpretation Comments Basophils (test code = 0.5 See_Comment [Aut omated message] The Basophils) system which ge nerated this result tra nsmitted reference range : <=1.0. The reference r yessenia was not used to int erpret this result as normal/abnormal . [facility] CenterEoswcsgZOWNWUJRWU0685-07-22 21:04:00 Test Item Value Reference Range Interpretation Comments Segs-Bands # (test code = Segs-Bands #) 18.1 1.5-8.1 [facility] CenterNlntqqePUFUXOYHLD8037-37-25 21:04:00 Test Item Value Reference Range Interpretation Comments Lymphocytes (test code = Lymphocytes) 5.6 20.0-40.0 [facility] CenterQaduvvhTHBQJJPPMF9752-01-53 21:04:00 Test Item Value Reference Range Interpretation Comments Segs (test code = Segs) 88.7 45.0-75.0 [facility] CenterUplcukwHQEIWMSSRO7675-00-30 21:04:00 Test Item Value Reference Range Interpretation Comments Monocytes (test code = Monocytes) 3.4 2.0-12.0 [facility] CenterTethmkoMSNHVXZASY2860-01-91 21:04:00 Test Item Value Reference Range Interpretation Comments Eosinophils (test code = 1.8 See_Comment [A utomated message] The Eosinophils) system which ge nerated this result tra nsmitted reference range : <=4.0. The reference r yessenia was not used to int erpret this result as normal/abnormal . [facility] CenterDooaddgUEUVUBWZNO5681-69-98 21:04:00 Test Item Value Reference Range Interpretation Comments MCV (test code = MCV) 92.1 80.0-98.0 [facility] CenterJluxbzsXLCMFIBEKO4611-36-52 21:04:00 Test Item Value Reference Range Interpretation Comments MCH (test code = MCH) 29.7 pg 27.0-31.0 [facility]VihdqovSNEYDTJILN4068-04-19 21:04:00 Test Item Value Reference Range Interpretation Comments Hgb (test code = Hgb) 13.1 12.0-16.0 [facility] JacksonMamiprzPBVEEXYIVK0384-46-47 21:04:00 Test Item Value Reference Range Interpretation Comments Hct (test code = Hct) 40.5 36.0-48.0 [facility] JacksonSfzznmyJDYUUNMANV4890-29-24 21:04:00 Test Item Value Reference Range Interpretation Comments RBC (test code = RBC) 4.40 4.20-5.40 [facility] JacksonNuxumxkTEKXACVCRW9491-90-14 21:04:00 Test Item Value Reference Range Interpretation Comments MCHC (test code = MCHC) 32.3 32.0-36.0 [facility] JacksonVbpdogcAHKWBYGXKA7811-87-33 21:04:00 Test Item Value Reference Range Interpretation Comments Platelet (test code = Platelet) 287 133-450 [facility] JacksonKvwahhzTUVRPWTFXA3397-30-98 21:04:00 Test Item Value Reference Range Interpretation Comments RDW (test code = RDW) 14.3 11.5-14.5 [facility] JacksonShqfzwjRYJHPFQDZS5902-07-59 21:04:00 Test Item Value Reference Range Interpretation Comments MPV (test code = MPV) 8.5 7.4-10.4 [facility] JacksonXoszjgiDPNQCKNBUW9969-83-40 21:04:00 Test Item Value Reference Range Interpretation Comments WBC (test code = WBC) 20.4 3.7-10.4 [facility]CHE[facility] [id number] 17:34:00 Test Item Value Reference Range Interpretation Comments Lactic Acid Lvl (test code = Lactic 1.4 0.5-2.2 Acid Lvl) [facility] HospitalThyrotropin [Units/volume] in Serum or [id number] 00:00:00 Test Item Value Reference Range Interpretation Comments TSH (test code = TSH) 1.8820 uIU/mL 0.3500-4.9400 [facility] - Serum or Plasma 2015-08-22 00:00:00 Test Item Value Reference Range Interpretation Comments ALT (test code = ALT) 25.0 U/L 0.0-55.0 AST (test code = AST) 21.0 U/L 5.0-34.0 BUN (test code = BUN) 12.0 mg/dL 7.0-20.0 alk phos (test code = alk 70.0 unit/L 40.0-150.0 phos) glucose (test code = 69.0 mg/dL 70.0-99.0 L glucose) albumin (test code = 3.7 g/dL 3.5-5.0 albumin) creatinine (test code = 0.9 mg/dL 0.6-1.1 creatinine) eGFR non- 73.0 mL/min/1.73m2 >60.0 (test code = eGFR non-) total bilirubin (test code 0.3 mg/dL 0.2-1.2 = total bilirubin) eGFR - 93.9 mL/min/1.73m2 >60.0 (test code = eGFR - ) sodium (test code = 141.0 mEq/L 137.0-144.0 sodium) potassium (test code = 4.3 mEq/L 3.5-5.0 potassium) chloride (test code = 110.0 mmol/L 101.0-110.0 chloride) total protein (test code = 6.3 g/dL 6.4-8.3 L total protein) calcium (test code = 9.3 mg/dL 8.4-10.2 calcium) CO2 (test code = CO2) 24 mmol/L 22-29 anion gap (test code = 7.0 calc anion gap) [facility] Auto Differential panel - [id number] 00:00:00 Test Item Value Reference Range Interpretation Comments WBC (test code = WBC) 9.71 x10*3/?L 2.60-11.20 RBC (test code = RBC) 4.25 10*12/L 3.93-5.87 hemoglobin (test code = 12.7 g/dL 10.7-15.7 hemoglobin) hematocrit (test code = 39.3 % 33.2-46.8 hematocrit) MCV (test code = MCV) 92.5 fL 77.8-103.4 MCH (test code = MCH) 29.9 pg 24.8-35.0 MCHC (test code = MCHC) 32.3 g/dL 31.5-35.9 RDW-SD (test code = RDW-SD) 46.4 fL 35.8-50.4 platelet count (test code = 310.0 k/uL 126.7-416.1 platelet count) MPV (test code = MPV) 10.7 fL 8.3-13.5 neut% (test code = neut%) 70.0 % 39.5-76.9 lymph% (test code = lymph%) 17.6 % 12.6-45.8 mon% (test code = mon%) 4.0 % 3.7-12.9 eos% (test code = eos%) 7.900 % 0.001-6.400 H baso% (test code = baso%) 0.5 % 0.0-1.5 neut# (test code = neut#) 6.8 x10*3/?L 0.6-7.6 lymph# (test code = lymph#) 1.7 x10*3/?L 0.7-3.3 mon# (test code = mon#) 0.4 x10*3/?L 0.2-1.0 eos# (test code = eos#) 0.77 x10*3/?L 0.00-0.44 H baso# (test code = baso#) 0.050 x10*3/?L 0.001-0.080 [facility]
[2021-04-08] MEDS ORDERED: dexAMETHasone 10 MG/ML VIAL ONE (02:47)
[2021-04-08] MEDS ORDERED: GUAIFENESIN/CODEINE 5ML UCUP ONE (02:49)
--- NOTE | 2021-04-08 04:58 | EDPHYS ---
Physician Documentation [facility] Name: Areli Gómez Age: 35 yrs Sex: Female : 1985 Arrival Date: 04/08/2021 Time: 02:09 Bed 23 Private MD: ED Physician Jose Laurent HPI: 04/08 03:11 This 35 yrs old Female presents to ER via Ambulatory with complaints of Ear Pain. pm1 03:11 The patient presents with a fullness, pain. The complaints affect the left ear. Onset: pm1 The symptoms/episode began/occurred last night. Modifying factors: The symptoms are alleviated by nothing, Typically relieved with heating pad and decongestants in the ER. Associated signs and symptoms: Pertinent negatives: cough, fever, rhinorrhea. Severity of symptoms: in the emergency department the symptoms are worse. The patient has experienced similar episodes in the past, multiple times, Patient reports a history of flareups of fullness and pain that is typically resolved with minimal home therapeutic interventions. The patient has not recently seen a physician. 35-year-old female presents to the ER with left ear pain. Patient chronically has flareups of left facial pain and ear pain that she describes as fullness. Fullness sensation needs to symptoms of left ear tinnitus and occasionally will cause her to have some bleeding from left ear. Patient does not have bleeding currently but is experiencing fullness and pain. 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 - Social history:: Smoking status: Patient reports the use of cigarette tobacco products, smokes one pack cigarettes per day. ROS: 03:11 Constitutional: Negative for fever, chills, and weight loss. pm1 03:11 Cardiovascular: Negative for chest pain, palpitations, and edema, Respiratory: Negative for shortness of breath, cough, wheezing, and pleuritic chest pain, Abdomen/GI: Negative for abdominal pain, nausea, vomiting, diarrhea, and constipation, Skin: Negative for injury, rash, and discoloration, Neuro: Negative for headache, weakness, numbness, tingling, and seizure. 03:11 ENT: Positive for ear pain, Negative for drainage from ear(s), sinus congestion, sinus pain, sore throat, dental pain, difficulty swallowing. 03:11 All other systems are negative. Exam: 03:11 Constitutional: This is a well developed, well nourished patient who is awake, alert, pm1 and in no acute distress. Head/Face: Normocephalic, atraumatic. 03:11 Skin: Warm, dry with normal turgor. Normal color with no rashes, no lesions, and no evidence of cellulitis. 03:11 Eyes: Exam is negative for acute changes, Extraocular movements: no acute changes, Conjunctiva: no acute changes, no injection, Sclera: no acute changes, icterus, is not appreciated. 03:11 ENT: Exam is negative for External ear(s): no acute changes, Ear canal(s): no acute changes, TM's: no acute changes, Mouth: no acute changes, Lips: normal, moist, Oral mucosa: normal, pink and intact, Tongue: is normal, abscess, is not appreciated, Voice: no acute changes, negative for mastoid tenderness. 03:11 Neck: External neck: is normal, no acute changes. 03:11 Cardiovascular: Exam negative for acute changes, Rate: normal, Rhythm: regular, Pulses: no pulse deficits are appreciated. 03:11 Respiratory: Exam negative for acute changes, respiratory distress, shortness of breath. 03:11 Neuro: Exam negative for acute changes, Orientation: is normal, Mentation: is normal, Motor: is normal, moves all fours, Gait: is steady, at a normal pace, without difficulty. Vital Signs: 02:24 Weight 86.18 kg (R); Height 5 ft. 2 in. (157.48 cm); Pain 9/10; lp1 02:29 BP 108 / 66; Pulse 74; Resp 16; Temp 98.2; Pulse Ox 99% 0 lpm ; sv1 03:43 BP 105 / 67; Pulse 52; Resp 14; Temp 98.2; Pulse Ox 99% 0 lpm ; Pain 7/10; sv1 04:41 BP 82 / 56; Pulse 48; Resp 14; Pulse Ox 99% 0 lpm ; Pain 2/10; sv1 04:57 BP 91 / 78; Pulse 57; Resp 17; Temp 97.9; Pulse Ox 99% ; Pain 2/10; sv1 02:24 Body Mass Index 34.75 (86.18 kg, 157.48 cm) lp1 MDM: 02:51 Patient medically screened. pm1 04:59 Data reviewed: vital signs, nurses notes. Counseling: I had a detailed discussion with kdr the patient and/or guardian regarding: the historical points, exam findings, and any diagnostic results supporting the discharge/admit diagnosis, the need for outpatient follow up. 05:01 ED course: Patient felt much better at the time of discharge. Should her blood pressure kdr historically has been low along with her pulse. She was completely asymptomatic with the vital signs that have been charted by nursing staff. Overall she felt well and was happy to go home. She was discharged on medication similar to what we given her here which have been successful. Herself and caregiver were happy with the care provided the plan for discharge and follow-up. 04/08 02:50 Order name: CT Facial Bones W/O Con pm1 Administered Medications: 02:52 Drug: Decadron (dexamethasone) 10 mg Route: IM; Site: right ventrogluteal; sv1 03:27 Follow up: Response: No adverse reaction sv1 02:52 Drug: guaiFENesin AC (codeine-guaifenesin) Liquid (10 mg-100 mg/5 mL) 5 ml Route: PO; sv1 03:27 Follow up: Response: No adverse reaction; Other sv1 Disposition: 04:51 Co-signature as Attending Physician, Jose Laurent MD I agree with the assessment and kdr plan of care. Disposition Summary: 04/08/21 04:57 Discharge Ordered Location: Home kdr Problem: an acute exacerbation kdr Symptoms: have improved kdr Condition: Stable kdr Diagnosis - Disease of upper respiratory tract, unspecified kdr - Left ear pain, congestion kdr Followup: kdr - With: Private Physician - When: 2 - 3 days - Reason: If symptoms return, Further diagnostic work-up, Recheck today's complaints, Continuance of care, Re-evaluation by your physician Discharge Instructions: - Discharge Summary Sheet kdr - Earache, Adult kdr - Upper Respiratory Infection, Adult, [id number] kdr Forms: - Medication Reconciliation Form kdr - Thank You Letter kdr - Prescription Opioid Use kdr Prescriptions: - Medrol (Nabil) 4 mg Oral Tablets, Dose Pack - take 1 tablet by ORAL route as directed - follow package instructions; 1 kdr packet; Refills: 0, Product Selection Permitted - Guaifenesin AC 10-100 mg/5 mL Oral Liquid - take 5 milliliter by ORAL route every 4 hours As needed; 200 milliliter; kdr Refills: 0, Product Selection Permitted Signatures: Dispatcher [employer] EDJose Ferrell MD MD kdr Margarita Fuentes RN RN lp1 Deejay Arnett, BENJAMIN CRATE ICER pm1 Braxton Blackwell RN RN sv1
--- NOTE | 2021-04-08 04:58 | ER ---
Nurse's Notes [facility] Name: Areli Gómez Age: 35 yrs Sex: Female : 1985 Arrival Date: 04/08/2021 Time: 02:09 Bed 23 Private MD: Diagnosis: Disease of upper respiratory tract, unspecified;Left ear pain, congestion Presentation: 04/08 02:24 Chief complaint: Patient states: Pain to left ear that began this evening; Hx of tumor lp1 removal with partial jaw, nasal bone removal; Reports ear pain and bleeding intermittently. Coronavirus screen: At this time, the client does not indicate any symptoms associated with coronavirus-19. Ebola Screen: No symptoms or risks identified at this time. Risk Assessment: Do you want to hurt yourself or someone else? Patient reports no desire to harm self or others. Onset of symptoms was April 08, 2021. 02:24 Method Of Arrival: Ambulatory lp1 02:24 Acuity: HARRIET 3 lp1 02:31 Initial Sepsis Screen: Does the patient meet any 2 criteria? No. Patient's initial sv1 sepsis screen is negative. 02:31 Initial Sepsis Screen: Does the patient have a suspected source of infection? Yes: sv1 Other: LEFT EAR. Triage Assessment: 02:29 General: Appears distressed, uncomfortable. Pain: Complains of pain in left ear Pain at sv1 worst was 10 out of 10 on a pain scale. 02:29 General: Behavior is cooperative, appropriate for age. EENT: No signs and/or symptoms sv1 were reported regarding the EENT system. 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 - Social history:: Smoking status: Patient reports the use of cigarette tobacco products, smokes one pack cigarettes per day. Screenin:26 Abuse screen: Denies threats or abuse. Denies injuries from another. Nutritional lp1 screening: No deficits noted. Tuberculosis screening: No symptoms or risk factors identified. Fall Risk None identified. Assessment: 03:28 Reassessment: Resting quietly. Waiting for ct .. sv1 04:33 Reassessment: waiting ng for ct results. The patientis sleeping.. sv1 05:05 Reassessment: Cleared for discharge to home by the provider.. sv1 Vital Signs: 02:24 Weight 86.18 kg (R); Height 5 ft. 2 in. (157.48 cm); Pain 9/10; lp1 02:29 BP 108 / 66; Pulse 74; Resp 16; Temp 98.2; Pulse Ox 99% 0 lpm ; sv1 03:43 BP 105 / 67; Pulse 52; Resp 14; Temp 98.2; Pulse Ox 99% 0 lpm ; Pain 7/10; sv1 04:41 BP 82 / 56; Pulse 48; Resp 14; Pulse Ox 99% 0 lpm ; Pain 2/10; sv1 04:57 BP 91 / 78; Pulse 57; Resp 17; Temp 97.9; Pulse Ox 99% ; Pain 2/10; sv1 02:24 Body Mass Index 34.75 (86.18 kg, 157.48 cm) lp1 ED Course: 02:09 Patient arrived in ED. bp1 02:17 Deejay Arnett NP is PHCP. pm1 02:17 Jose Laurent MD is Attending Physician. pm1 02:25 Triage completed. lp1 02:25 Arm band placed on. lp1 02:28 Braxton Blackwell RN is Primary Nurse. sv1 02:32 Patient has correct armband on for positive identification. Bed in low position. Call sv1 light in reach. Side rails up X 1. Adult w/ patient. 02:32 No provider procedures requiring assistance completed. sv1 03:12 CT Facial Bones W/O Con In Process Unspecified. EDMS Administered Medications: 02:52 Drug: Decadron (dexamethasone) 10 mg Route: IM; Site: right ventrogluteal; sv1 03:27 Follow up: Response: No adverse reaction sv1 02:52 Drug: guaiFENesin AC (codeine-guaifenesin) Liquid (10 mg-100 mg/5 mL) 5 ml Route: PO; sv1 03:27 Follow up: Response: No adverse reaction; Other sv1 Outcome: 04:57 Discharge ordered by . kdr 05:05 Discharged to home ambulatory, with family. sv1 05:05 Condition: improved 05:05 Discharge instructions given to patient, family. 05:06 Patient left the ED. sv1 Signatures: Dispatcher [employer] EDJose Ferrell MD MD kdr Pena, Laura, RN RN lp1 Deejay Arnett, COMPO CONVEYOR OPERATOR COMPO CONVEYOR OPERATOR pm1 Yanely Han Steven, BALJIT RN sv1
[2021-04-08 05:13] VITALS: O2SAT 99
[2021-04-08 05:19] VITALS: BP 91/78; TEMP 97.9
--- NOTE | 2021-04-08 14:30 | RAD REPORT ---
EXAM DESCRIPTION: CT - Facial Bones W/ Mpr - 04/08/2021 6:42 am COMPARISON: CT Max face January 24, 2021 CLINICAL HISTORY: [facility] MAIN left ear pain;Facial pain TECHNIQUE: High resolution axial CT images are obtained through the maxillofacial bones without intr avenous contrast followed by multiplanar reformats. Automated exposure control was utilized on this e xamination as a dose lowering technique. FINDINGS: Maxillofacial bones and mandible: No evidence for fracture. There is a chronic appearing d efect of the left superior alveolar ridge extending to the left paranasal sinuses. Orbital structures: Unremarkable. Paranasal sinuses: Clear. Soft tissues: Normal. Visualized intracranial structures: The visualized structures of the skull base are normal. Visualize d intracranial structures are normal. IMPRESSION: No acute maxillofacial findings. Chronic defect of the left maxilla. Electronically signed by: Fadi Fernandez MD 04/08/2021 4:41 AM LODGING FACILITIES ATTENDANT Due to temporary technical issues with the PACS/Fluency reporting system, reports are being signed by the in house radiologists without review as a courtesy to insure prompt reporting. The interpreting radiologist is fully responsible for the content of the report.
== END 2021-04-08 05:06 | disposition home or self-care (01) ==
LOC: ER 02:07
DX: H92.02 Otalgia, left ear (principal); J39.9 Disease of upper respiratory tract, unspecified; R09.81 Nasal congestion; F17.210 Nicotine dependence, cigarettes, uncomplicated
CPT/HCPCS: 70486; 76377; 96372; 99283; J1100

== ENCOUNTER 2021-06-20 00:59 | Emergency (ER) | payer OTHER ==
--- OUTSIDE RECORDS SUMMARY | 2021-06-20 01:04 | XMS REPORT | Clinical Summary ---
:1985 Author Organization [facility] Address [address] [place] [address] Care Team Providers Name Role Phone Slim [...] Specialty Care Team Description 07/28/2020 Orders Only Marly Perry, SARS-CoV-2 vaccination 07/04/2020 Orders Only Head and Neck Surgery Deja Mccoy PA Odo ntogenic cyst (Primary Dx) after 06/20/2020 Surgical History Surgery Date Site/Laterality Comments FRACTURE SURGERY IL REMV UPPER 02/13/2016 Mouth/Left Procedure: MAXIL LECTOMY, JAW-MAXILLECTOMY WITHOUT ORBITAL EXTENERATION; Surgeon: Isidro Salgado MD; Location: MAIN OR; Service: HN - HEAD & NECK SURGERY IL DENTAL SURGERY PROCEDURE 02/13/2016 N/A Proc edure: DENTAL EXTRACTION(S); Surgeon: Dusty Gross DDS; Location: MAIN OR; Service: OR AL ONCOLOGY & MAXILLOFACIAL IL OSTHODONTICS IL RECMPL WND SCALP,EXTR 02/13/2016 N/A Procedu re: [...] Vaccination (1) 08/25/1988 Implants Implanted Type Area Cement Sack Breaker Device Identifier Shelf Exp iration Model / Date Serial / L ot [employer] Brand Pin Name Description: PIN and Screws in Fibula Results Not on fileafter 06/20/2020 Insurance Payer Benefit Plan / Subscriber ID Effective Phone Address T ype Group Dates [employer]NA MEDICARE [employer]NA GOLD PLUS [id number] 2019-Pres [address] Medicare MEDICARE HMO ent [id number] [place] [address] [place] [id number] 2019-Pres [address] Medicaid TRADITIONAL TRADITIONAL STAR [place] [id number] [place] [address] Areli G[facility]mez [facility] Self 1985 [address] ([address]) [place] [id number] Advance Directives Type Date Recorded Patient Central Scheduler Explanati on Advance Directives: 02/12/2016 12:00 AM Directiv e to Living Will Physicians and F leley or Surrogates-Dee Dee Jaquez Advance Directives: 02/12/2016 12:00 AM Medical Power of Medical Power of Network Cable Installer Network Cable Installer Code Status Date Activated Date Inactivated Comments Full Code 02/13/2016 10:10 AM 02/14/2016 12:32 PM Full Code 01/08/2016 12:32 AM 01/08/2016 5:53 PM Care Teams Annual Campaign Manager Relationship Specialty Start Date End Date Slim Dawn, DMD Consulting Physician Dental Oncology 06/17/16 [address] [place] [address]
--- OUTSIDE RECORDS SUMMARY | 2021-06-20 01:08 | XMS REPORT | Continuity of Care Document ---
:1985 Author Organization [facility] t Address [address] [place] [address] [address] [place] [address] Care Team Providers Name Role Phone CARLOS JACOBO Primary Care Physician Unavailable ODALIS Attending Clinician Unavailable Orlando CARDONA Attending Clinician Darius RADER Attending Clinician NIELS Attending Clinician Unavailable PIETER CHAPA Attending Clinician Unavailable Marie FREY Attending Clinician Unavailable ANDREW Attending Clinician Unavailable Payers Payer Name Policy Policy Number Effective Expiration Source Type Date Date HUMANA MEDICAREHUMANA [id number] 2019 MD Genaro BURGOS PLUS MEDICARE 00:00:00 [id number]/[id number]-Pr es[address] [place] [id number] [place]ICAID [place] [id number] 2019 MD Blank rios TRADITIONAL[place] 00:00:00 TRADITIONAL STAR NON [id number] 2019-Pr [address] [address]Medicaid HUMANA CHOICECARE O [id number] 2018 00:00:00 MEDICAID OF [place] [id number] 2018 00:00:00 Problems Condition Condition Condition Status Onset Resolution Last Treating Co mments Source Name Details Category Date Date Treatment Clinician Date FACIAL Diagnosis Active 2017-042018-03-17 Mem oria SORES, 05-17 16:03:00 l MUSCLE FACIAL 00:00: Carlo SPASMS, SORES, 00 LEFT ARM MUSCLE PA SPASMS, LEFT ARM PA Active 8 [facility] SEPSIS Diagnosis Active 2017-10-12 Mem oria 10-11 16:23:00 l SEPSIS 00:00: [place] 00 Active 10/11/2017 [facility] CANCER PT, Diagnosis Active 2017-10-11 Memoria PAIN, 10-11 16:04:00 l INFECTION CANCER 00:00: Sulma nn PT, PAIN, 00 INFECTION Active 10/11/2017 [facility] Pain of Pain of Disease Active Overview: head and head and 1-20 Stacia And erscarly neck neck 00:00: g of this n region region 00 note might be different from the original. 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 2-27 Anderso loss of loss of 00:00: n teeth due teeth due 00 to other to other specified specified cause cause PAIN Diagnosis Active 2016-01-27 Mem oria 8 16:05:00 l PAIN 00:00: Carlo 00 Active 11/22/2015 [facility] Explosive Explosive Disease Active MD personalit personalit 10-02 An derso y disorder y disorder 00:00: [...] Mood Mood Problem Active [place] disorder Disorder 5-04 Family 00:00: Practic 00 e Endometrio Endometrio Problem Active V illage sis sis 5-04 Family (clinical) (Clinical) 00:00: Pr actic 00 e Cyst of Cyst of Problem Active [facility] ovary Ovary 5-04 Family 00:00: Practic 00 e Degenerati Degenerati Problem Active V illage on of on of -04 Family cervical Cervical 00:00: Practi c interverte Interverte 00 e bral disc bral Disc Degenerati Degenerati Problem Active V illage on of on of 5-04 Family lumbar Lumbar 00:00: Practic interverte Interverte 00 e bral disc bral Disc Ovarian Ovarian Disease Active Overview: cyst cyst -24 Formattin Anderso 00:00: g of this n 00 note might be different from the original. HL ICD10 regulator y upload VOMITING Diagnosis Active 2015-10-10 M emoria 04-24 11:00:00 l VOMITING 00:00: Navi n 00 Active 04/24/2015 [facility] Pain in Problem 2018-10-05 Dmitriy ela left lower 13:31:52 l leg Pain in [place] left lower leg 10/05/2018 [place] Cough Problem 2018-10-05 Memor ia 13:31:52 l Cough Carlo 10/05/2018 [place] Nicotine Problem 2018-10-05 Mem oria dependence 13:31:52 l , Nicotine Navi n cigarettes dependence , , uncomplica cigarettes susanne , uncomplica susanne 10/05/2018 [place] Chronic Problem 2018-10-05 Dmitriy ela obstructiv 13:31:52 l e Chronic [place] pulmonary obstructiv disease, e unspecifie pulmonary d disease, unspecifie d 10/05/2018 [facility] None Problem Resolve 2020-01-11 Dmitriy ela (qualifier d 21:56:10 l value) None [place] (qualifier value) Resolved Problem 01/11/2020 [facility] SEPSIS, Diagnosis Active 2017-10-12 Me moria UNSPECIFIE 16:23:00 l D ORGANISM SEPSIS, Her prasad UNSPECIFIE D ORGANISM Active [facility] History of Past Illness Condition Condition Condition Status Onset Resolution Last Treating Co mments Source Name Details Category Date Date Treatment Clinician Date Other Problem 2017-042018-10-05 2018-10-05 M emoria chest pain 2- 13:31:52 13:31:52 l Other 04:34: Carlo chest pain 14 03/24/2018 10/05/2018 [facility] Chest Problem 2017-042018-10-05 2018-10-05 M emoria pain, 05-17 13:31:52 13:31:52 l unspecifie Chest 06:00: Sulma nn d pain, 00 unspecifie d 03/17/2018 10/05/2018 [facility] Pain in Problem 2017-042018-10-05 2018-10-05 Memoria leg, 05-17 13:31:52 13:31:52 l unspecifie Pain in 06:00: Her prasad d leg, 00 unspecifie d 03/17/2018 10/05/2018 [facility] Shortness Problem 2017-042018-10-05 2018-10-05 Memoria of breath 05-17 13:31:52 13:31:52 l 06:00: Carlo Shortness 00 of breath 03/17/2018 10/05/2018 [facility] Allergies, Adverse Reactions, Alerts Allergy Allergy Status Severity Reaction(s) Onset Inactive Treating Comm ents Source Name Type Date Date Clinician GABAPENT Allergy [facility] LORAZEPA Allergy Active Low Anxiety 2019[facility] [...] Known DA Active [facility] [place] [facility] Lyrica Allergy Active [place] to [...] Date Stop Date Quantity Comments Source History SDAK MD Lam Alcohol Frequency History SDAK MD Lam Alcohol Std Drinks History SDAK MD Lam Alcohol Binge Alcohol intake 2018-01-29 [...] smoker MD Lam use 00:00:00 00:00:00 History SDOH 2015-09-02 2015-09-02 randomly not MD Blank rios Alcohol Comment 00:00:00 00:00:00 every week/day Social History 2015-04-24 2015-04-24 [facility] 13:58:55 13:58:55 Sex [birth year] At [birth year] MD [place] on 00:00:00 00:00:00 Smoking Status Start Date Stop Date Source Heavy Tobacco Smoker [facility] Practice Ex-smoker 2016-02-19 00:00:00 2016-02-19 00:00:00 MD Trejo [...] 0 Refill(s) Aspirin 2017-04 No Notes: Memoria -29 Take with l 20:04: food. Saline 2017-04 [...] Memori a 0.833 MG/ML 10-13 (Same as: l / 19:00: Duoneb) Carlo Ipratropium 00 [place] 0.167 MG/ML Inhalant Solution [DuoNeb] Zofran No Notes: Memoria - (Same as: l 18:50: Zofran) Carlo MEDICATION WASTE Product Size: 4 mg Product Wasted: ___ mg Sucralfate No 1 gm, Memori a 10-13 Route: PO, l 14:00: Drug form: Carlo 00 TAB, TID, Dosing Weight 77.443, kg, Start date: 10/13/17 9:00:00 CDT, Duration: 30 day, Stop date: 11/11/17 17:00:00 CDT D5W 1/4NS + No Notes: Dmitriy ela KCL 10mEq/L - PREMIX IV l 1000ml 12:54: - Do Not [place] (Premix) 00 Alter 1,000 mL WASTE: F/P - Sink; E - Municipal Trash Bin Sucralfate No Notes: August emoria - interfere l 05:01: w/enteral [place] 00 feeds - Take 1 hr before [...] Codeine # 3) Protonix No Notes: Memoria - Tablet l 21:30: should not [place] be chewed or crushed. (Same as: Protonix) Midodrine No Notes: Memori a - (Same l 18:00: as:Proamat Carlo 00 ine) D5NS + KCL No Notes: Memor ia 20mEq/L 10-12 PREMIX IV l 1000ml 14:14: - Do Not Carlo (Premix) 00 Alter 1,000 mL WASTE: F/P - Sink; E - Municipal Trash Bin Trazodone No Notes: Memori a - (Same As: l 14:12: Desyrel) Carlo 00 duloxetine No 30 mg, Memor ia 10-12 Route: PO, l 14:00: Drug form: [place] 00 DRC, Daily, Dosing Weight 77.443, kg, Start date: 10/12/17 9:00:00 CDT, Duration: 30 day, Stop date: 11/10/17 9:00:00 CDT cefepime No Notes: Memoria 6- (Same As: l 07:00: Maxipime) [place] MEDICATION WASTE Product Size: 1000 mg Product [...] PO, l delayed 01:59: Daily, Carlo release take with capsule 60 mg tablet for total of 90 mg, 0 Refill(s) pantoprazol Yes 40 mg = 1 M emoria e 40 mg 10-12 tab, PO, l oral 01:26: Daily, # Carlo enteric 00 30 tab, 0 coated Refill(s) tablet Combivent Yes 1 puff, Memor ia Respimat 10-12 INHALATION l 01:26: , PRN [place] 00 Shortness of breath, 0 Refill(s) Promethazin Yes 25 mg = 1 M emoria e - tab, PO, l Hydrochlori 01:26: Q6H, PRN He rmann de 25 MG 00 as needed Oral Tablet for nausea/vom iting, 0 Refill(s) Lorazepam 1 Yes 1 mg = 1 Me moria MG Oral 10-12 tab, PO, l Tablet 01:26: BID, PRN Carlo 00 as needed for anxiety, 0 Refill(s) Oxycodone Yes 10 mg = 10 Me moria Hydrochlori 10-12 mL, PO, l de 1 MG/ML 01:26: Q6H, PRN Her prasad Oral 00 Pain Score Solution 6-10, 0 Refill(s) carisoprodo Yes 350 mg = 1 Memoria l 350 mg 10-12 tab, PO, l oral tablet 01:26: TID, PRN He rmann 00 Muscle Spasms, 0 Refill(s) Acetaminoph 2018-0 Yes 1 tab, PO, Memoria en 325 MG / - Q6H, PRN l Hydrocodone 01:26: Pain Score Bitartrate 00 1-5, 0 10 MG Oral Refill(s) Tablet DULoxetine Yes 60 mg = 1 Me moria 60 mg oral 6- cap, PO, l delayed 01:26: Daily, take with capsule 30 mg tablet for a total of 90 mg, 0 Refill(s) Flagyl No Notes: Memoria 6- (Same as: l 01:00: Flagyl) Avoid alcohol. Zofran No Notes: Memoria 6- (Same as: l 00:06: Zofran) MEDICATION WASTE Product Size: 4 mg Product Wasted: ___ mg Tylenol No Notes: Do Memor ia - not exceed l 00:06: 4 gm/day. (Same as: Tylenol) Albuterol No Notes: Memori a 0.833 MG/ML 10-12 (Same as: l / 00:06: Duoneb) Ipratropium 00 [place] 0.167 MG/ML Inhalant Solution [DuoNeb] cefepime No Notes: Memoria 6 (Same as: l 22:18: Maxipime) MEDICATION WASTE [...] - lidocaine viscous 7.5 mL Zofran ODT No 4 mg, Memori a 6-25 Route: PO, l 21:29: Drug form: Carlo 00 TABDIS, ONCE, Dosing Weight 79.091, kg, Priority: STAT, Start date: 10/11/17 16:29:00 CDT, Stop date: 10/11/17 16:29:00 CDT NS (Bolus) 2017-0 No 1,000 mL, Me moria IV 625 1,000 l 21:25: ml/hr, Carlo 00 Infuse Over: 1 hr, Route: IV, ONCE, Priority: STAT, Dosing Weight 79.091 kg, Start date: 10/11/17 16:25:00 CDT, Stop date: 10/11/17 16:25:00 CDT ketOROLAC 0 No 15 mg, Memori a 15 mg/mL 10-11 Route: l injectable 21:25: IVP, Drug He rmann solution 00 form: INJ, ONCE, Dosing Weight 79.091, kg, Priority: STAT, Start date: 10/11/17 16:25:00 CDT, Stop date: 10/11/17 16:25:00 CDT Saline 0 No Notes: Memoria Flush 0.9% 25 Same as: l 17:16: BD Carlo 00 Posiflush Sterile Sodium 2017-0 No 1,000 mL, Memori a Chloride 25 1000 l 0.9% 17:16: ml/hr, [place] (Bolus) IV 00 Infuse Over: 1 hr, [...] night 00 :00 at night e oxyCODONE Yes Other acute 10mg Take 10 mL MD (ROXICODONE 5-01 pain (10 mg) by An derso ) [...] mg 00 tablet COMBIVENT Yes MD RESPIMAT 08-20 Anderso 20-100 00:00: n mcg/actuati 00 on [...] nebulizati on route. carisoprodo carisoprodo No carisoprod [facility] l 350 mg l 350 mg ol 350 mg Fa carlitos tablet take tablet take tablet Practic 2 tablets 2 tablets take 2 e in the in the tablets in morning and morning and the 2 at 2 at morning bedtime bedtime and 2 at bedtime carisoprodo carisoprodo No carisoprod [facility] l 350 mg l 350 mg [...] finishing 30mg dose diclofenac diclofenac No diclofenac [facility] sodium 3 % sodium 3 % sodium 3 % Family gel gel gel Practic e doxepin doxepin No doxepin Villag e hydrochlori hydrochlori hydrochlor Family de 5 % crea de 5 % crea uri 5 % Practic crea e doxycycline doxycycline No 1capsul BID doxycyclin [place] hyclate 100 hyclate 100 e(s) e hyclate [...] Family caps caps mg caps Practic e [place] 10 [place] 10 No 1 Q4H [place] 10 Jasiel angie mg-325 mg mg-325 mg [...] e prednisone prednisone No 2 Q1D prednisone [place] 20 mg 20 mg 20 mg Family tablet Take tablet Take tablet Practic 2 tablets 2 tablets Take 2 e every day every day tablets by oral by oral every day route. route. by oral route. temazepam temazepam No temazepam [place] 30 mg caps 30 mg caps 30 mg caps Family Practic e pantoprazol pantoprazol 2018- No 1 Q1D pantoprazo [place] e 40 mg e 40 mg 03-08 le 40 mg Fami ly tablet,eduardo tablet,eduardo 00:00 tablet,del Practic yed release yed release :00 ayed e Take 1 Take 1 release tablet tablet Take 1 every day every day tablet by oral by oral every day route. route. by oral route. temazepam temazepam 2017- No 1capsul Q1D temazepam [place] 30 mg 30 mg 0208 e(s) 30 mg Family capsule capsule 00:00 capsule Pract ic Take 1 Take 1 :00 Take 1 e capsule capsule capsule every day every day every day by oral by oral by oral route at route at route at bedtime. bedtime. bedtime. combivent combivent 2017- No combivent [facility] aer 20-100 aer 20-100 01-20 aer Family 00:00 20-100 Practic :00 e amox/k clav amox/k clav 2016- No amox/k [place] tab tab - clav tab Family [phone] 00:00 875-125 Pract ic :00 e belsomra 10 belsomra 10 2017- No belsomra [place] mg tabs mg tabs 08-31 10 mg tabs Fa carlitos 00:00 Practic :00 e hydromorpho hydromorpho 2016- No hydromorph [place] ne hcl 8 mg ne hcl 8 mg 08-31 one hcl 8 Family tabs tabs 00:00 mg tabs Practic :00 e lidocaine 5 lidocaine 5 2016- No lidocaine [place] % ptch % ptch 12-17 5 % ptch Family 00:00 Practic :00 e lorazepam 1 lorazepam 1 2016- No lorazepam [place] mg tabs mg tabs 08-31 1 mg tabs Fam darius 00:00 Practic :00 e lyrica 75 lyrica 75 2016- No lyrica 75 Village mg caps mg caps 08-31 mg caps Famil y 00:00 Practic :00 e oxycodone oxycodone 2016- No oxycodone [facility] hcl 5 hcl 5 - hcl 5 Family mg/5ml soln mg/5ml soln 00:00 mg/5ml Practic :00 soln e stiolto stiolto 2016- No stiolto Torres ge aer aer 12-17 aer Family 2.5-2.5 2.5-2.5 00:00 2.5-2.5 Pract ic :00 e temazepam temazepam 2016- temazepam [facility] 15 mg caps 15 mg caps 12-17 15 mg caps Family 00:00 Practic :00 e tizanidine tizanidine 2016- No 1 TID tizanidine [facility] 4 mg tablet 4 mg tablet 12-17 4 mg Family Take 1 Take 1 00:00 tablet Practic tablet 3 tablet 3 :00 Take 1 e times a day times a day tablet 3 by oral by oral times a route as route as day by needed. needed. oral route as needed. Stiolto Stiolto 2017- No 2puff(s Q1D Stiolto Vi llage Respimat Respimat 07-22 ) Respimat Fa carlitos 2.5 mcg-2.5 2.5 mcg-2.5 00:00 2.5 Practic mcg/actuati mcg/actuati :00 mcg-2.5 e on solution on solution mcg/actuat for for ion inhalation inhalation solution Inhale 2 Inhale 2 for puffs every puffs every inhalation day by day by Inhale 2 inhalation inhalation puffs route. route. every day by inhalation route. apap/codein apap/codein 2016- No apap/codei [place] e tab e tab 02-10 ne tab Family 300-60mg 300-60mg 00:00 300-60mg Pr actic :00 e clonazepam clonazepam 2016- No clonazepam [facility] 0.5 mg tabs 0.5 mg tabs 0210 0.5 mg Family 00:00 tabs Practic :00 e glycopyrrol glycopyrrol 2016- No glycopyrro [facility] ate 2 mg ate 2 mg 0210 late 2 mg F amily tabs tabs 00:00 tabs Practic :00 e hydroco/apa hydroco/apa 2017- No hydroco/ap [place] p tab p tab 02-10 ap tab Family 5-325mg 5-325mg 00:00 5-325mg Pract ic :00 e ibuprofen ibuprofen 2017- No ibuprofen [place] 800 mg tabs 800 mg tabs 02-10 800 mg Family 00:00 tabs Practic :00 e ketorolac ketorolac 2017- No ketorolac [facility] tromethamin tromethamin 0210 tromethami Family e 10 mg e 10 mg 00:00 ne 10 mg Prac tic tabs tabs :00 tabs e lamotrigine lamotrigine 2017- No lamotrigin [place] 25 mg tabs 25 mg tabs 02-10 e 25 mg Family 00:00 tabs Practic :00 e meloxicam meloxicam 2017- No meloxicam [facility] 7.5 mg tabs 7.5 mg tabs 10 7.5 mg Family 00:00 tabs Practic :00 e mirtazapine mirtazapine 2017- No mirtazapin [facility] 15 mg tabs 15 mg tabs 02-10 e 15 mg Family 00:00 tabs Practic :00 e oxycodone oxycodone 2017- No oxycodone [facility] hcl 10 mg hcl 10 mg 02-10 hcl 10 mg Family tabs tabs 00:00 tabs Practic :00 e prazosin prazosin 2017- No prazosin Vi llage hcl 2 mg hcl 2 mg 02-10 hcl 2 mg Fa carlitos caps caps 00:00 caps Practic :00 e promethazin promethazin 2017- No promethazi [facility] e hcl 25 mg e hcl 25 mg 02-10 ne hcl 25 Family tabs tabs 00:00 mg tabs Practic :00 e risperidone risperidone 2017- No risperidon [facility] 1 mg tabs 1 mg tabs 02-10 e 1 mg Fa carlitos 00:00 tabs Practic :00 e sertraline sertraline 2017- No sertraline [facility] hcl 50 mg hcl 50 mg 02-10 hcl 50 mg Family tabs tabs 00:00 tabs Practic :00 e smz/tmp ds smz/tmp ds 2017- No smz/tmp ds Village tab tab 02-10 tab Family [phone] 00:00 800-160 Pract ic :00 e topiramate topiramate 2017- No topiramate [facility] 25 mg tabs 25 mg tabs 05-29 25 mg tabs Family 00:00 Practic :00 e Immunizations Ordered Immunization Filled Immunization Date Status Commen ts Source Name Name Tdap Tdap 2014-11-07 Completed [facility] Family 00:00:00 Practice Vital Signs Vital Name Observation Time Observation Value Comments Source HEIGHT 2020-05-02 07:25:00 157.5 cm WEIGHT 2020-05-02 07:25:00 79.833 kg Respitory Rate 2018-03-18 05:30:00 Memori al [place] Systolic (mm Hg) 2018-03-18 05:30:00 Dmitriy rial [place] Diastolic (mm Hg) 2018-03-18 05:30:00 Mem orial [place] Heart Rate 2018-03-18 05:30:00 [facility] [place] Weight 2018-03-17 20:01:00 [facility] [place] Temperature Oral (F) 2018-03-17 20:01:00 97.9 F [facility] [place] Heart Rate 2018-03-17 20:01:00 [facility] [place] Respitory Rate 2018-03-17 20:01:00 Memori al [place] Systolic (mm Hg) 2018-03-17 20:01:00 Dmitriy rial [place] Diastolic (mm Hg) 2018-03-17 20:01:00 Mem orial [place] Systolic (mm Hg) 2017-10-13 15:31:00 Dmitriy rial [place] Diastolic (mm Hg) 2017-10-13 15:31:00 Mem orial [place] Heart Rate 2017-10-13 15:31:00 [facility] [place] Temperature Oral (F) 2017-10-13 15:31:00 97.8 F [facility] [place] Respitory Rate 2017-10-13 15:31:00 Memori al [place] Systolic (mm Hg) 2017-10-13 12:19:00 Dmitriy rial [place] Diastolic (mm Hg) 2017-10-13 12:19:00 Mem orial Carlo Respitory Rate 2017-10-13 12:19:00 Memori al Carlo Temperature Oral (F) 2017-10-13 12:19:00 98.6 F Memorial [place] Heart Rate 2017-10-13 12:19:00 [facility] [place] Heart Rate 2017-10-13 07:45:00 [facility] [place] Respitory Rate 2017-10-13 07:45:00 Memori al [place] Systolic (mm Hg) 2017-10-13 07:45:00 Dmitriy rial [place] Diastolic (mm Hg) 2017-10-13 07:45:00 Mem orial Carlo Temperature Oral (F) 2017-10-13 07:45:00 98.2 F Memorial [place] BMI Calculated 2017-10-12 01:12:00 Memori al Carlo Height 2017-10-12 01:12:00 157.48 cm [facility] [place] Weight 2017-10-12 01:12:00 [facility] [place] BMI Calculated 2017-10-11 16:32:00 Memori al [place] Height 2017-10-11 16:32:00 157.48 cm Memorial Carlo [...] Practice BP Systolic 2017-05-27 00:00:00 126 mm[Hg] [facility] Body Weight 2017-05-27 00:00:00 171.6 [lb_av] [facility] BP Diastolic 2016-12-17 00:00:00 70 mm[Hg] [facility] Height 2016-12-17 00:00:00 62 [in_i] [facility] BMI (Body Mass Index) 2016-12-17 00:00:00 31.8 kg/m2 [facility] BP Systolic 2016-12-17 00:00:00 130 mm[Hg] [facility] Body Weight 2016-12-17 00:00:00 173.6 [lb_av] [facility] BP Diastolic 2016-05-29 00:00:00 76 mm[Hg] [facility] Height 2016-05-29 00:00:00 62 [in_i] [facility] BMI (Body Mass Index) 2016-05-29 00:00:00 32.2 kg/m2 [facility] BP Systolic 2016-05-29 00:00:00 106 mm[Hg] [facility] Body Weight 2016-05-29 00:00:00 176 [lb_av] [facility] BP Diastolic 2015-08-21 00:00:00 76 mm[Hg] [facility] Height 2015-08-21 00:00:00 61 [in_i] [facility] BMI (Body Mass Index) 2015-08-21 00:00:00 27.40 kg/m2 [facility] BP Systolic 2015-08-21 00:00:00 130 mm[Hg] [facility] Body Weight 2015-08-21 00:00:00 145 [lb_av] [facility] Procedures Procedure Date / Time Performed Performing Clinician Aleida e 2VIEWS RADIOLOGIC 2017-07-12 00:00:00 [facility] Stephen urbina EXAMINATION, CHEST Practice Other 2015-04-19 00:00:00 [facility] Fami ly Practice Other 2004-04-19 00:00:00 [facility] ly Practice Myomectomy [facility] Dilation and curettage [facility] Plan of Care Planned Activity Planned Date Details Comments Source Future Scheduled Test 1988-08-25 00:00:00 COVID-19 Vaccination MD Lam (1) [code = COVID-19 Vaccination (1)] Encounters Start End Encounter Admission Attending Care Care Encounter Source Date/Time Date/Time Type Type Clinicians Facility Department ID 2020-12-20 2020-12-20 Outpatient ODALIS [facility] [id number] [place] 00:00:00 00:00:00 KRISTAL [address] 2020-12-19 2020-12-19 Outpatient ODALIS, [facility] [id number] [place] 00:00:00 00:00:00 KRISTAL [address] 2020-11-26 2020-11-26 Outpatient ODALIS, [facility] [id number] [place] 00:00:00 00:00:00 KRISTAL [address] 2020-06-28 2020-06-28 Outpatient ODALIS, [facility] [id number] [place] 00:00:00 00:00:00 KRISTAL [address] 2020-05-02 2020-05-02 Emergency ER [facility] Emergency [id number] [facility] 07:18:00 07:18:00 2020-04-25 2020-04-25 Outpatient ODALIS, [facility] [id number] [place] 00:00:00 00:00:00 KRISTAL 217 [facility] 2020-03-28 2020-03-28 Outpatient ODALIS, [facility] [id number] [place] 00:00:00 00:00:00 KRISTAL 287 [facility] 2020-03-01 2020-03-01 Outpatient NIELS, [facility] [id number] [place] 00:00:00 00:00:00 MAHI 107 Metho di 2020-03-01 2020-03-01 Outpatient NIELS, [facility] [id number] [place] 00:00:00 00:00:00 MAHI 835 [facility] di 2020-03-01 2020-03-01 Outpatient NIELS [facility] [id number] [place] 00:00:00 00:00:00 MAHI 905 Metho di 2020-01-19 2020-01-19 Outpatient MHIE MHIE [id number] Memoria 09:00:00 09:00:00 00 l [place] 2020-01-05 2020-01-07 Phone nullFlavo MNA [id number] Memoria 19:44:37 04:59:59 Message r Neuroscienc 01 l gee Rhodes [facility] 2019-12-19 2019-12-19 Outpatient RUBENS CHAPA MDA MDA [id number] 00:00:00 00:00:00 Cosmowillie rios 2019-12-19 2019-12-19 Outpatient EL CHAMBERS, MDA MDA [id number] 00:00:00 00:00:00 ARYA rios 2019-12-18 2019-12-18 Outpatient ODALIS, [facility] [id number] [place] 00:00:00 00:00:00 KRISTAL 376 [facility] i 2019-12-18 2019-12-18 Outpatient ODALIS, [facility] [id number] [place] 00:00:00 00:00:00 KRISTAL 377 [facility] i 2019-12-18 2019-12-18 Outpatient ODALIS, [facility] [id number] [place] 00:00:00 00:00:00 KRISTAL 379 [facility] i 2019-12-12 2019-12-12 Outpatient EL MORALES, MDA MDA [id number] 00:00:00 00:00:00 KRISTAL rios 2019-12-12 2019-12-12 Outpatient EL MORALES, MDA MDA [id number] 00:00:00 00:00:00 KRISTAL rios 2019-12-12 2019-12-12 Outpatient EL EDUARD, RUBENS MDA MDA [id number] 00:00:00 00:00:00 Cosmo rios 2019-12-05 2019-12-07 Phone nullFlavo MNA [id number] Memoria 15:24:31 04:59:59 Message r Neuroscienc 00 l gee [facility] 2019-06-15 2019-06-15 Outpatient ODALIS, [facility] [id number] [place] 00:00:00 00:00:00 KRISTAL 830 [facility] i 2018-03-17 2018-03-18 Emergency nullFlavo [facility] [id number] Memoria 19:43:00 06:28:00 radha Shaw [facility] 2018-01-29 2018-01-29 Emergency EL MDA MDA [id number] MD 06:35:18 06:35:18 Cosmowillie rios 2017-10-11 2017-10-13 Inpatient nullFlavo [facility] [id number] Memoria 16:29:00 20:10:00 radha Shaw [facility] 2017-07-12 2017-07-12 Kahlil Mcmullen, [facility] [place] - [id number] [facility] 00:00:00 00:00:00 MD: [id number] [facility] [address], [facility] [id number] , Ph. 2017-06-24 2017-06-24 Kahlil Mcmullen [facility] [place] - [id number] [facility] 00:00:00 00:00:00 MD: [id number] [facility] Practice - [address], [facility] [address] , Ph. 2017-05-27 2017-05-27 Kahlil Mcmullen [facility] [place] - [id number] 8 [facility] 00:00:00 00:00:00 MD: 9055 [facility], Practice - e [address], [facility] [address] , Ph. 2016-12-17 2016-12-17 Manolo James [facility] [place] - [id number] [facility] 00:00:00 00:00:00 [facility] Bertin [facility]ccoy MD: [address] [facility] [address], [facility] [address], [place] [address] , Ph. 2016-05-29 2016-05-29 Kahlil Mcmullen, [facility] - [id number] [phone] [facility] 00:00:00 00:00:00 MD: [id number] [facility] Practice - e [address], [facility] [address] , Ph. Results Test Description Test Time Test Comments Results Result [facility] e Comments CT, ABDOMEN 2020-05-02 Unlisted Reason 08:48:00 for Exam - Click Yes and CHI Enter Reason [facility] Below->[facility] CENTERName: DOMINGO this procedure BRADEN PERKINS require oral : [...] MDReport Verified Date/Time: 05/02/2020 08:48:17 Reading Location: [facility] C013X Ortho Consult Reading Room , SHOULDER, 2018-09-22 Reason for FINAL REPORT PATIENT COMPLETE (MIN 2 14:10:00 exam:->SHOULDER ID: [id number] VIEWS), RIGHT INJURY Clinical Diagnosis: Shoulder injury [...] MDReport Verified Date/Time: 09/22/2018 14:10:10 Reading Location: [facility] B1 C013W Consult Reading Room - MRI L-SPINE W/O 2018-08-08 FAX: Baron Moreno CONT 15:26:00 Sukh CARDONA [phone] Spring: St: [facility] FAX: London Ahumada DO [phone] Patient Name: BRADEN LANE Unit No: [id number] EXAMS: CPT CODE: [id number] MRI L-SPINE W/O CONT 62000 Location: T 18 MRI lumbar spine, 08/08/18 TECHNIQUE: MRI assessment of the lumbosacral spine without contrast was performed on a high field magnet. Multiplanar and multisequence technique acquired. COMPARISON EXAMS: CT examination of the lumbar spine 08/08/18 CLINICAL HISTORY: L5-S1 impingement. Patient presenting to the emergency room with lower back pain. FINDINGS: Five isp-uwb-qopidqp lumbar appearing bodies are presumed for the [...] this level is a focal central [facility] NAME: BRADEN L[address] [place] [address] PHYS: Baron Manriquez, [place] [address] : 1985 AGE: 32 SEX: F LOC: JORDAN Lopez PHONE #: [phone] EXAM DATE: 08/08/2018 STATUS: ADM IN FAX #: [phone] RAD NO: DC Dt: PAGE 1 Signed Report (CONTINUED) FAX: Baron Moreno MD [phone] [place]: St: ADM FAX: London Ahumada DO [phone] Patient Name: BRADEN LANE Unit No: [id number] EXAMS: CPT CODE: [id number] MRI L-SPINE W/O CONT 23787 <Continued> protrusion protrudes 4 mm, without displacement [...] By: [email or web address] Orig Print D/T: S: 08/08/2018 (1529) EMELI Leavitt NAME: [address] PHYS: Baron Manriquez, [place] [address] : 1985 AGE: 32 SEX: F LOC: JORDAN Lopez PHONE #: [phone] EXAM DATE: 08/08/2018 STATUS: ADM IN FAX #: [phone] RAD NO: DC Dt: PAGE 2 Signed [...] MG 1 NORMAL LIPINDEX) Index/DL CBC W/AUTO [id number] 13:31:00 Test Item Value Reference Range Interpretation [...] 0.0-0.05 N NRBC#) - CT T-SPINE W/O [id number] 12:05:00 Patient Name: BRADEN LANE Unit No: [id number] EXAMS: CPT CODE: [id number] CT T-SPINE W/O CONTRAST [address] CT thoracic spine without contrast CT lumbar [...] by: Darwin Reich M.D. CC: Federico Estrada [employer] COMMUNICATIONS SUPERINTENDENT Dictated Date/Time: 08/08/2018 (2074) Technologist: Alexandro Corbett CTDI: 14.00 DLP: 756.63 Trnscrpt: 08/08/2018 (7542) [email or web address] EMELI Leavitt NAME:JANESSA [address] PHYS: NICOLE Slater Federico Estrada NP [place] [address] : 1985 AGE: 32 SEX: F LOC: HOLLIS PHONE #: [phone] EXAM DATE: 08/08/2018 STATUS: REG ER FAX #: [phone] RAD #: D/C DT PAGE 1 Signed Report Patient Name: BRADEN LANE Unit No: [id number] EXAMS: CPT CODE: [id number] CT T-SPINE W/O CONTRAST 20398 <Continued> Orig Print D/T: S: 08/08/2018 (6792) [facility] NAME: [address] PHYS: NICOLE Slater Federico Estrada [place] [address] : 1985 AGE: 32 SEX: F : GabrielleERS PHONE #: [phone] EXAM DATE: 08/08/2018 STATUS: REG ER FAX #: [phone] RAD #: D/C DT PAGE 2 Signed Report- CT L-SPINE W/O [id number] 12:04:00 Patient Name: BRADEN LANE Unit No: [id number] EXAMS: CPT CODE: [id number] CT L-SPINE W/O CONTRAST 17051 CT thoracic spine without contrast CT lumbar [...] Federico Estrada NP Dictated Date/Ti me: 08/08/2018 (1754) Technologist: Alexandro Corbett CTDI: DLP: Trnscrpt: 08/08/2018 (3697) [email or web address] EMELI Leavitt NAME:BRADEN L[address] [place] [address] PHYS: Federico Temple NP [place] [address] : 1985 AGE: 32 SEX: F LOC: GabrielleERS PHONE #: [phone] EXAM DATE: 08/08/2018 STATUS: REG ER FAX #: [phone] RAD #: D/C DT PAGE 1 Signed Report Patient Name: BRADEN LANE Unit No: [id number] EXAMS: CPT CODE: [id number] CT L-SPINE W/O CONTRAST 57148 <Continued> Orig Print D/T: S: 08/08/2018 (0088) EMELI Leavitt NAME: BRAD[address] [place] [address] PHYS: Federico Temple NP [place] [address] : 1985 AGE: 32 SEX: F : GabrielleERS PHONE #: [phone] EXAM DATE: 08/08/2018 STATUS: REG ER FAX #: [phone] RAD #: D/C DT PAGE 2 Signed ReportCARDIAC [id number] 00:05:00 Test Item Value Reference Range Interpretation Comments Total CK (test code = Total CK) 89 12-191 [facility] HospitalXogen TechnologiesCARAppNexusAC [id number] 00:05:00 Test Item Value Reference Range Interpretation Comments Troponin-I (test code no gt See_Comment [Auto mated message] The = Troponin-I) system which g enerated this result transmit susanne reference range : <=0.40. The reference r yessenia was not used to interpr et this result as ingrid l/abnormal. [facility] HospitalPreoAC [id number] 00:05:00 Test Item Value Reference Range Interpretation Comments BNP (test code = BNP) 34 [facility] [employer] [id number] 00:05:00 Test Item Value Reference Range Interpretation Comments eGFR (test code = eGFR) 66 [facility] [employer] [id number] 00:05:00 Test Item Value Reference Range Interpretation Comments AST (test code = AST) 17 See_Comment [Auto mated message] The system which ge nerated this result transmit susanne reference range : <=37. The reference range was not used to interpr et this result as ingrid l/abnormal. [facility] [employer] [id number] 00:05:00 Test Item Value Reference Range Interpretation Comments Total Protein (test code = Total 7.4 6.4-8.4 Protein) [facility] HospitalIdc917 [id number] 00:05:00 Test Item Value Reference Range Interpretation Comments Albumin Lvl (test code = Albumin Lvl) 3.7 3.5-5.0 [facility] [employer] [id number] 00:05:00 Test Item Value Reference Range Interpretation Comments ALT (test code = ALT) 15 See_Comment [Auto mated message] The system which ge nerated this result transmit susanne reference range : <=65. The reference range was not used to interpr et this result as ingrid l/abnormal. [facility] [employer] [id number] 00:05:00 Test Item Value Reference Range Interpretation Comments Calcium Lvl (test code = Calcium Lvl) 8.9 8.5-10.5 [facility] [employer] [id number] 00:05:00 Test Item Value Reference Range Interpretation Comments Alk Phos (test code = Alk Phos) 85 39-136 [facility] [employer] [id number] 00:05:00 Test Item Value Reference Range Interpretation Comments Bili Total (test code = Bili Total) 0.2 0.2-1.3 [facility]2018-11-30 00:05:00 Test Item Value Reference Range Interpretation Comments Glucose Lvl (test code = Glucose Lvl) 76 70-99 [facility]2018-11-30 00:05:00 Test Item Value Reference Range Interpretation Comments Sodium Lvl (test code = Sodium Lvl) 140 135-145 [facility]2018-11-30 00:05:00 Test Item Value Reference Range Interpretation Comments Potassium Lvl (test code = Potassium 3.8 3.5-5.1 Lvl) [facility]2018-11-30 00:05:00 Test Item Value Reference Range Interpretation Comments Chloride Lvl (test code = Chloride Lvl) 106 95-109 [facility]2018-11-30 00:05:00 Test Item Value Reference Range Interpretation Comments CO2 (test code = CO2) 26 24-32 [facility]2018-11-30 00:05:00 Test Item Value Reference Range Interpretation Comments BUN (test code = BUN) 11 7-22 [facility]2018-11-30 00:05:00 Test Item Value Reference Range Interpretation Comments Creatinine Lvl (test code = Creatinine 1.09 0.50-1.40 Lvl) [facility]2018-11-30 00:05:00 Test Item Value Reference Range Interpretation Comments Globulin (test code = Globulin) 3.7 2.7-4.2 [facility]2018-11-30 00:05:00 Test Item Value Reference Range Interpretation Comments A/G Ratio (test code = A/G Ratio) 1.0 1 0.7-1.6 [facility]2018-11-30 00:05:00 Test Item Value Reference Range Interpretation Comments AGAP (test code = AGAP) 11.8 10.0-20.0 [facility]2018-11-30 00:05:00 Test Item Value Reference Range Interpretation Comments B/C Ratio (test code = B/C Ratio) 10 1 6-25 [facility]2018-11-30 00:05:00 Test Item Value Reference Range Interpretation Comments Lipase Lvl (test code = Lipase Lvl) 149 73-393 [place] [address]2018-11-30 00:05:00 Test Item Value Reference Range Interpretation Comments S Preg (test code = S Negative *NA*(03/17/18 Preg) 6:05 PM) [facility] HospitalJdtjjcmNKRKDVJUIQ9097-83-65 00:05:00 Test Item Value Reference Range Interpretation Comments Monocytes (test code = Monocytes) 4.2 2.0-12.0 [facility] HospitalIhxnknfHRDXOQKEGP8333-67-70 00:05:00 Test Item Value Reference Range Interpretation Comments Lymphocytes (test code = Lymphocytes) 18.8 20.0-40.0 [facility] HospitalIntprsqZNADANEOTH5905-62-84 00:05:00 Test Item Value Reference Range Interpretation Comments Segs (test code = Segs) 67.1 45.0-75.0 [facility] HospitalHhutvqpYBLMQIVPSU5801-63-21 00:05:00 Test Item Value Reference Range Interpretation Comments Basophils # (test code 0.1 See_Comment [Aut omated message] The = Basophils #) system which generated this result tra nsmitted reference range : <=0.2. The reference r yessenia was not used to int erpret this result as normal/abnormal . [facility] HospitalNxiugqlTMRNMAKZBZ1619-20-86 00:05:00 Test Item Value Reference Range Interpretation Comments Eosinophils # (test code 1.1 See_Comment [A utomated message] The = Eosinophils #) system whic h generated this result tra nsmitted reference range : <=0.5. The reference r yessenia was not used to int erpret this result as normal/abnormal . [facility] HospitalVxfstpxQCWCKRHRCD4715-56-09 00:05:00 Test Item Value Reference Range Interpretation Comments Monocytes # (test code 0.5 See_Comment [Aut omated message] The = Monocytes #) system which generated this result tra nsmitted reference range : <=0.8. The reference r yessenia was not used to int erpret this result as normal/abnormal . [facility] HospitalQfxwovtCGFQPDVQSI1600-22-52 00:05:00 Test Item Value Reference Range Interpretation Comments Lymphocytes # (test code = Lymphocytes 2.2 1.0-5.5 #) [facility] HospitalBolvgzcGOBCWWLXNM0187-95-31 00:05:00 Test Item Value Reference Range Interpretation Comments Neutrophils # (test code = Neutrophils 7.7 1.5-8.1 #) [facility] HospitalMtgukkmSGFHBGXOBJ9900-62-00 00:05:00 Test Item Value Reference Range Interpretation Comments Basophils (test code = 0.7 See_Comment [Aut omated message] The Basophils) system which ge nerated this result tra nsmitted reference range : <=1.0. The reference r yessenia was not used to int erpret this result as normal/abnormal . [facility] HospitalKavfauxGIWIDRQKJU0443-80-18 00:05:00 Test Item Value Reference Range Interpretation Comments Eosinophils (test code = 9.2 See_Comment [A utomated message] The Eosinophils) system which ge nerated this result tra nsmitted reference range : <=4.0. The reference r yessenia was not used to int erpret this result as normal/abnormal . [facility] HospitalPlvdxtrNOXEOUIKSK8096-57-86 00:05:00 Test Item Value Reference Range Interpretation Comments MPV (test code = MPV) 8.5 7.4-10.4 [facility] HospitalJbzvzzaMDPVXWBINM6899-03-82 00:05:00 Test Item Value Reference Range Interpretation Comments Platelet (test code = Platelet) 362 133-450 [facility] HospitalKmnikxpJSPRQRZKCA9306-35-86 00:05:00 Test Item Value Reference Range Interpretation Comments RDW (test code = RDW) 14.7 11.5-14.5 [facility] HospitalLkjilqxPCRRSLYLRJ2913-85-41 00:05:00 Test Item Value Reference Range Interpretation Comments MCHC (test code = MCHC) 33.1 32.0-36.0 [facility] HospitalRatsevcLLQSJBEDBG8983-03-12 00:05:00 Test Item Value Reference Range Interpretation Comments MCV (test code = MCV) 87.6 80.0-98.0 [facility] HospitalJaprnjlFRAJXUSQEN4356-37-88 00:05:00 Test Item Value Reference Range Interpretation Comments Hgb (test code = Hgb) 12.5 12.0-16.0 [facility] HospitalCiomjliPXQNGWBPPR2565-12-71 00:05:00 Test Item Value Reference Range Interpretation Comments MCH (test code = MCH) 29.0 pg 27.0-31.0 [facility] HospitalUwcxtrlCYUEFDEUTW2714-29-71 00:05:00 Test Item Value Reference Range Interpretation Comments Hct (test code = Hct) 37.7 36.0-48.0 [facility] HospitalJprrwbtPMNNALHIVY9804-14-79 00:05:00 Test Item Value Reference Range Interpretation Comments RBC (test code = RBC) 4.31 4.20-5.40 [facility] HospitalRpxtmhkRAXOISIHEN6192-03-23 00:05:00 Test Item Value Reference Range Interpretation Comments WBC (test code = WBC) 11.5 3.7-10.4 [facility] AND [id number] 21:36:00 Test Item Value Reference Range Interpretation Comments UA Leuk Est (test Negative (03/17/18 3:36 code = UA Leuk Est) PM) [facility] AND [id number] 21:36:00 Test Item Value Reference Range Interpretation Comments UA Nitrite (test code Negative (03/17/18 3:36 = UA Nitrite) PM) [facility] AND [id number] 21:36:00 Test Item Value Reference Range Interpretation Comments UA Sq Epi (test code = UA Sq Epi) Many /LPF [facility] AND [id number] 21:36:00 Test Item Value Reference Range Interpretation Comments UA WBC (test code = 1 See_Comment [Automa susanne message] The UA WBC) system which ge nerated this result transmit susanne reference range : <=5. The reference range was not used to interpr et this result as ingrid l/abnormal. [facility] AND [id number] 21:36:00 Test Item Value Reference Range Interpretation Comments UA Bacteria (test code = UA Occasional /HPF Bacteria) [facility] AND [id number] 21:36:00 Test Item Value Reference Range Interpretation Comments UA RBC (test code = 3 See_Comment [Automa susanne message] The UA RBC) system which ge nerated this result transmit susanne reference range : <=2. The reference range was not used to interpr et this result as ingrid l/abnormal. [facility] AND [id number] 21:36:00 Test Item Value Reference Range Interpretation Comments UA Hyal Cast (test 4 See_Comment [Automat ed message] The code = UA Hyal Cast) system which generated this result transmit susanne reference range : <=2. The reference range was not used to interpr et this result as ingrid l/abnormal. [facility] AND [id number] 21:36:00 Test Item Value Reference Range Interpretation Comments UA Mucus (test code = UA Mucus) Moderate /LPF [facility] AND [id number] 21:36:00 Test Item Value Reference Range Interpretation Comments UA Glucose (test code = UA Negative mg/dL Glucose) [facility] AND [id number] 21:36:00 Test Item Value Reference Range Interpretation Comments UA Bili (test code = Negative *NA*(03/17/18 UA Bili) 3:36 PM) [facility] [id number] 21:36:00 Test Item Value Reference Range Interpretation Comments UA Protein (test code = UA Protein) 20 mg/dL [facility] [id number] 21:36:00 Test Item Value Reference Range Interpretation Comments UA Blood (test code = Negative (03/17/18 3:36 UA Blood) PM) [facility] AND [id number] 21:36:00 Test Item Value Reference Range Interpretation Comments UA Urobilinogen (test code = UA 2.0 0.1-1.0 Urobilinogen) [facility] [id number] 21:36:00 Test Item Value Reference Range Interpretation Comments UA Ketones (test code = UA Trace mg/dL Ketones) [facility] [id number] 21:36:00 Test Item Value Reference Range Interpretation Comments UA pH (test code = UA pH) 6.0 1 5.0-8.0 [facility] AND [id number] 21:36:00 Test Item Value Reference Range Interpretation Comments UA Turbidity (test code = Clear (03/17/18 3:36 UA Turbidity) PM) [facility] [id number] 21:36:00 Test Item Value Reference Range Interpretation Comments UA Spec Grav (test code = UA Spec 1.026 1 Grav) [facility] [id number] 21:36:00 Test Item Value Reference Range Interpretation Comments UA Color (test code = Dark Yellow UA Color) *NA*(03/17/18 3:36 PM) [facility] HospitalannCARDIAC [id number] 18:00:00 Test Item Value Reference Range Interpretation Comments Troponin-I (test code no gt See_Comment [Auto mated message] The = Troponin-I) system which g enerated this result transmit susanne reference range : <=0.40. The reference r yessenia was not used to interpr et this result as ingrid l/abnormal. [facility] [id number] 15:29:00 Test Item Value Reference Range Interpretation Comments C difficile DNA (test Negative (10/12/17 code = C difficile DNA) 10:29 AM) [facility]2018-06-26 14:55:00 Test Item Value Reference Range Interpretation Comments eGFR (test code = eGFR) 80 [facility]2018-06-26 14:55:00 Test Item Value Reference Range Interpretation Comments Calcium Lvl (test code = Calcium Lvl) 8.1 8.5-10.5 [facility]2018-06-26 14:55:00 Test Item Value Reference Range Interpretation Comments AGAP (test code = AGAP) 7.7 10.0-20.0 [facility]2018-06-26 14:55:00 Test Item Value Reference Range Interpretation Comments Sodium Lvl (test code = Sodium Lvl) 148 135-145 [facility]2018-06-26 14:55:00 Test Item Value Reference Range Interpretation Comments Creatinine Lvl (test code = Creatinine 0.93 0.50-1.40 Lvl) [facility]2018-06-26 14:55:00 Test Item Value Reference Range Interpretation Comments BUN (test code = BUN) 7 7-22 [facility]2018-06-26 14:55:00 Test Item Value Reference Range Interpretation Comments CO2 (test code = CO2) 21 24-32 [facility]2018-06-26 14:55:00 Test Item Value Reference Range Interpretation Comments Potassium Lvl (test code = Potassium 3.7 3.5-5.1 Lvl) [facility]2018-06-26 14:55:00 Test Item Value Reference Range Interpretation Comments Chloride Lvl (test code = Chloride Lvl) 123 95-109 [facility]2018-06-26 14:55:00 Test Item Value Reference Range Interpretation Comments Glucose Lvl (test code = Glucose Lvl) 83 70-99 [facility] HospitalLzaugmyGUPECKQHDJ1230-18-80 14:55:00 Test Item Value Reference Range Interpretation Comments WBC (test code = WBC) 10.8 3.7-10.4 [facility] Hos[id number] 14:55:00 Test Item Value Reference Range Interpretation Comments RBC (test code = RBC) 3.75 4.20-5.40 [facility] HospitalBzjjnelBYQGDDOGEF4731-88-47 14:55:00 Test Item Value Reference Range Interpretation Comments Hgb (test code = Hgb) 11.4 12.0-16.0 [facility] HospitalFhjwjmeVPVWYZXQPC7411-80-21 14:55:00 Test Item Value Reference Range Interpretation Comments MPV (test code = MPV) 8.4 7.4-10.4 [facility] HospitalNbndqgvHBUWTVXWFP5393-49-82 14:55:00 Test Item Value Reference Range Interpretation Comments Hct (test code = Hct) 34.7 36.0-48.0 [facility] HospitalLhqhohkEUSNENZSDI0920-43-19 14:55:00 Test Item Value Reference Range Interpretation Comments MCV (test code = MCV) 92.5 80.0-98.0 [facility] HospitalUkdmheqTYNBIUHUGL7282-64-21 14:55:00 Test Item Value Reference Range Interpretation Comments MCHC (test code = MCHC) 32.8 32.0-36.0 [facility] HospitalQyeqsayKZQDFCBKGV2633-23-96 14:55:00 Test Item Value Reference Range Interpretation Comments MCH (test code = MCH) 30.4 pg 27.0-31.0 [facility] HospitalMvwzksmVUPGKBZEVB8062-68-80 14:55:00 Test Item Value Reference Range Interpretation Comments RDW (test code = RDW) 14.5 11.5-14.5 [facility] HospitalJgudaevHLBEGSBXJI5917-44-39 14:55:00 Test Item Value Reference Range Interpretation Comments Platelet (test code = Platelet) 242 133-450 [facility] HospitalRmbsugzRNUKZUOCAS4245-49-34 14:55:00 Test Item Value Reference Range Interpretation Comments Lymphocytes # (test code = Lymphocytes 1.0 1.0-5.5 #) [facility] HospitalWugpgzwFPAOLGPTHZ5606-29-62 14:55:00 Test Item Value Reference Range Interpretation Comments Segs-Bands # (test code = Segs-Bands #) 8.6 1.5-8.1 [facility] HospitalIhbjjdpPIWVOWQRIT8314-95-03 14:55:00 Test Item Value Reference Range Interpretation Comments Monocytes # (test code 0.3 See_Comment [Aut omated message] The = Monocytes #) system which generated this result tra nsmitted reference range : <=0.8. The reference r yessenia was not used to int erpret this result as normal/abnormal . [facility] HospitalIuodudmNUUGOUJUIU4508-27-06 14:55:00 Test Item Value Reference Range Interpretation Comments Basophils # (test code 0.1 See_Comment [Aut omated message] The = Basophils #) system which generated this result tra nsmitted reference range : <=0.2. The reference r yessenia was not used to int erpret this result as normal/abnormal . [facility] HospitalQdwildyHTJTJFKYTF5590-78-24 14:55:00 Test Item Value Reference Range Interpretation Comments Eosinophils # (test code 0.8 See_Comment [A utomated message] The = Eosinophils #) system whic h generated this result tra nsmitted reference range : <=0.5. The reference r yessenia was not used to int erpret this result as normal/abnormal . [facility] HospitalZhfmjteLOYKYKQBTW0133-07-39 14:55:00 Test Item Value Reference Range Interpretation Comments Lymphocytes (test code = Lymphocytes) 9.4 20.0-40.0 [facility] HospitalZtomjhfMPZRFZKXRL8904-56-45 14:55:00 Test Item Value Reference Range Interpretation Comments Monocytes (test code = Monocytes) 3.2 2.0-12.0 [facility] HospitalFdycifxJLTOXSECXS3070-20-04 14:55:00 Test Item Value Reference Range Interpretation Comments Eosinophils (test code = 7.3 See_Comment [A utomated message] The Eosinophils) system which ge nerated this result tra nsmitted reference range : <=4.0. The reference r yessenia was not used to int erpret this result as normal/abnormal . [facility] HospitalBnuyyehLBXGRHIGMH0348-39-85 14:55:00 Test Item Value Reference Range Interpretation Comments Basophils (test code = 0.7 See_Comment [Aut omated message] The Basophils) system which ge nerated this result tra nsmitted reference range : <=1.0. The reference r yessenia was not used to int erpret this result as normal/abnormal . [id number] 14:55:00 Test Item Value Reference Range Interpretation Comments Segs (test code = Segs) 79.4 45.0-75.0 [id number] 01:47:00 Test Item Value Reference Range Interpretation Comments HIV Ag/Ab 4th Gen Negative *NA*(10/11/17 (test code = HIV 8:47 PM) Ag/Ab 4th Gen) [id number] 21:36:00 Test Item Value Reference Range Interpretation Comments UDS Note (test code = See Note (10/11/17 4:36 UDS Note) PM) [facility] [id number] 21:36:00 Test Item Value Reference Range Interpretation Comments U Phencyc Scr (test Negative *NA*(10/11/17 code = U Phencyc Scr) 4:36 PM) [facility] [id number] 21:36:00 Test Item Value Reference Range Interpretation Comments U Benzodia Scr (test Positive *ABN*(10/11/17 code = U Benzodia Scr) 4:36 PM) [facility] [id number] 21:36:00 Test Item Value Reference Range Interpretation Comments U Sandie Scr (test code Negative *NA*(10/11/17 = U Sandie Scr) 4:36 PM) [facility] [id number] 21:36:00 Test Item Value Reference Range Interpretation Comments U Amph Scr (test code Negative *NA*(10/11/17 = U Amph Scr) 4:36 PM) [facility] [id number] 21:36:00 Test Item Value Reference Range Interpretation Comments U Opiate Scr (test Positive *ABN*(10/11/17 code = U Opiate Scr) 4:36 PM) [facility] [id number] 21:36:00 Test Item Value Reference Range Interpretation Comments U Cocaine Scr (test Negative *NA*(10/11/17 code = U Cocaine Scr) 4:36 PM) [facility] [id number] 21:36:00 Test Item Value Reference Range Interpretation Comments U Cannab Scr (test Positive *ABN*(10/11/17 code = U Cannab Scr) 4:36 PM) [facility] [id number] 21:36:00 Test Item Value Reference Range Interpretation Comments UA Spec Grav (test >=1.050 *ABN*(10/11/17 code = UA Spec Grav) 4:36 PM) [facility] [id number] 21:36:00 Test Item Value Reference Range Interpretation Comments UA Leuk Est (test Negative (10/11/17 4:36 code = UA Leuk Est) PM) [facility] AND [id number] 21:36:00 Test Item Value Reference Range Interpretation Comments UA Sq Epi (test code = UA Sq Epi) Many /LPF [facility] AND [id number] 21:36:00 Test Item Value Reference Range Interpretation Comments UA WBC (test code = 2 See_Comment [Automa susanne message] The UA WBC) system which ge nerated this result transmit susanne reference range : <=5. The reference range was not used to interpr et this result as ingrid l/abnormal. [facility] AND [id number] 21:36:00 Test Item Value Reference Range Interpretation Comments UA Nitrite (test code Negative (10/11/17 4:36 = UA Nitrite) PM) [facility] AND [id number] 21:36:00 Test Item Value Reference Range Interpretation Comments UA Mucus (test code = UA Mucus) Few /LPF [facility] AND [id number] 21:36:00 Test Item Value Reference Range Interpretation Comments UA RBC (test code = 2 See_Comment [Automa susanne message] The UA RBC) system which ge nerated this result transmit susanne reference range : <=2. The reference range was not used to interpr et this result as ingrid l/abnormal. [facility] AND [id number] 21:36:00 Test Item Value Reference Range Interpretation Comments UA pH (test code = UA pH) 6.0 1 5.0-8.0 [facility] AND [id number] 21:36:00 Test Item Value Reference Range Interpretation Comments UA Protein (test code = UA Protein) 30 mg/dL [facility] AND [id number] 21:36:00 Test Item Value Reference Range Interpretation Comments UA Turbidity (test code Slight *ABN*(10/11/17 = UA Turbidity) 4:36 PM) [facility] AND [id number] 21:36:00 Test Item Value Reference Range Interpretation Comments UA Ketones (test code = UA Trace mg/dL Ketones) [facility] AND [id number] 21:36:00 Test Item Value Reference Range Interpretation Comments UA Blood (test code = Negative (10/11/17 4:36 UA Blood) PM) [facility] AND [id number] 21:36:00 Test Item Value Reference Range Interpretation Comments UA Glucose (test code = UA Negative mg/dL Glucose) [facility] AND [id number] 21:36:00 Test Item Value Reference Range Interpretation Comments UA Bili (test code = Negative *NA*(10/11/17 UA Bili) 4:36 PM) [facility] AND [id number] 21:36:00 Test Item Value Reference Range Interpretation Comments UA Color (test code = Red *ABN*(10/11/17 4:36 UA Color) PM) [facility] AND [id number] 21:36:00 Test Item Value Reference Range Interpretation Comments UA Urobilinogen (test code = UA 2.0 0.1-1.0 Urobilinogen) [facility] [id number] 21:36:00 Test Item Value Reference Range Interpretation Comments U Preg (test code = U Negative (10/11/17 4:36 Preg) PM) [facility] [id number] 21:36:00 Test Item Value Reference Range Interpretation Comments Culture: Urine (test <10,000 CFU/mL Skin code = Culture: Urine) [facility]Un[facility] [id number] 21:04:00 Test Item Value Reference Range Interpretation Comments Lipase Lvl (test code = Lipase Lvl) 377 73-393 [facility] [id number] 21:04:00 Test Item Value Reference Range Interpretation Comments Procalcitonin Lvl (test 4.79 See_Comment [Au tomated message] code = Procalcitonin Lvl) Th e system which generated this result transmitted ref erence range: <=0.10. The reference range was not used to interpr et this result as normal/abnormal . [id number] 21:04:00 Test Item Value Reference Range Interpretation Comments AGAP (test code = AGAP) 10.9 10.0-20.0 [facility]NvnukcaVKKREUHFWNGD1820-08-19 21:04:00 Test Item Value Reference Range Interpretation Comments B/C Ratio (test code = B/C Ratio) 7 1 6-25 [facility][id number] 21:04:00 Test Item Value Reference Range Interpretation Comments Globulin (test code = Globulin) 3.7 2.7-4.2 [facility] Hosp[id number] 21:04:00 Test Item Value Reference Range Interpretation Comments A/G Ratio (test code = A/G Ratio) 1.0 1 0.7-1.6 [facility] Hos[id number] 21:04:00 Test Item Value Reference Range Interpretation Comments eGFR (test code = eGFR) 79 [facility] Hospital[id number] 21:04:00 Test Item Value Reference Range Interpretation Comments Albumin Lvl (test code = Albumin Lvl) 3.6 3.5-5.0 [facility] Hospi[id number] 21:04:00 Test Item Value Reference Range Interpretation Comments Bili Total (test code = Bili Total) 0.6 0.2-1.3 [facility] Hospital[id number] 21:04:00 Test Item Value Reference Range Interpretation Comments Alk Phos (test code = Alk Phos) 81 39-136 [facility] Hos[id number] 21:04:00 Test Item Value Reference Range Interpretation Comments AST (test code = AST) 19 See_Comment [Auto mated message] The system which ge nerated this result transmit susanne reference range : <=37. The reference range was not used to interpr et this result as ingrid l/abnormal. [facility] Hos[id number] 21:04:00 Test Item Value Reference Range Interpretation Comments Total Protein (test code = Total 7.3 6.4-8.4 Protein) [facility] Hos[id number] 21:04:00 Test Item Value Reference Range Interpretation Comments ALT (test code = ALT) 14 See_Comment [Auto mated message] The system which ge nerated this result transmit susanne reference range : <=65. The reference range was not used to interpr et this result as ingrid l/abnormal. [facility] Hos[id number] 21:04:00 Test Item Value Reference Range Interpretation Comments Calcium Lvl (test code = Calcium Lvl) 8.9 8.5-10.5 [facility] HospitalBujwavoPYPNLJERPSID2911-08-77 21:04:00 Test Item Value Reference Range Interpretation Comments Glucose Lvl (test code = Glucose Lvl) 93 70-99 [facility] HospitalStfaosvFCIPSNKHXCWJ7724-19-62 21:04:00 Test Item Value Reference Range Interpretation Comments CO2 (test code = CO2) 24 24-32 [facility] Hospi[id number] 21:04:00 Test Item Value Reference Range Interpretation Comments Potassium Lvl (test code = Potassium 3.9 3.5-5.1 Lvl) [facility] HospitalDxruvdbXULCHWNHYQDV5601-63-51 21:04:00 Test Item Value Reference Range Interpretation Comments Chloride Lvl (test code = Chloride Lvl) 111 95-109 [facility] HospitalNzhvxmzQEUASKCVUGZZ6750-54-27 21:04:00 Test Item Value Reference Range Interpretation Comments BUN (test code = BUN) 7 7-22 [facility] Hosp[id number] 21:04:00 Test Item Value Reference Range Interpretation Comments Creatinine Lvl (test code = Creatinine 0.94 0.50-1.40 Lvl) [facility] HospitalAcrvhufJSJGSOFIXBTM7484-34-49 21:04:00 Test Item Value Reference Range Interpretation Comments Sodium Lvl (test code = Sodium Lvl) 142 135-145 [facility] HospitalGkfpiqaMGNGCUUQPR2454-34-30 21:04:00 Test Item Value Reference Range Interpretation Comments Lymphocytes # (test code = Lymphocytes 1.1 1.0-5.5 #) [facility] Ho[id number] 21:04:00 Test Item Value Reference Range Interpretation Comments Monocytes # (test code 0.7 See_Comment [Aut omated message] The = Monocytes #) system which generated this result tra nsmitted reference range : <=0.8. The reference r yessenia was not used to int erpret this result as normal/abnormal . [facility] Hos[id number] 21:04:00 Test Item Value Reference Range Interpretation Comments Basophils # (test code 0.1 See_Comment [Aut omated message] The = Basophils #) system which generated this result tra nsmitted reference range : <=0.2. The reference r yessenia was not used to int erpret this result as normal/abnormal . [facility] Hospit[id number] 21:04:00 Test Item Value Reference Range Interpretation Comments Eosinophils # (test code 0.4 See_Comment [A utomated message] The = Eosinophils #) system whic h generated this result tra nsmitted reference range : <=0.5. The reference r yessenia was not used to int erpret this result as normal/abnormal . [facility] H[id number] 21:04:00 Test Item Value Reference Range Interpretation Comments Basophils (test code = 0.5 See_Comment [Aut omated message] The Basophils) system which ge nerated this result tra nsmitted reference range : <=1.0. The reference r yessenia was not used to int erpret this result as normal/abnormal . [facility] H[id number] 21:04:00 Test Item Value Reference Range Interpretation Comments Segs-Bands # (test code = Segs-Bands #) 18.1 1.5-8.1 [facility] Ho[id number] 21:04:00 Test Item Value Reference Range Interpretation Comments Lymphocytes (test code = Lymphocytes) 5.6 20.0-40.0 [facility] Hospit[id number] 21:04:00 Test Item Value Reference Range Interpretation Comments Segs (test code = Segs) 88.7 45.0-75.0 [facility] HospitalMguwgarIHFDWWHCDQ0395-05-53 21:04:00 Test Item Value Reference Range Interpretation Comments Monocytes (test code = Monocytes) 3.4 2.0-12.0 [facility] HospitalZyaiwveUXQGWCDHFT7231-59-00 21:04:00 Test Item Value Reference Range Interpretation Comments Eosinophils (test code = 1.8 See_Comment [A utomated message] The Eosinophils) system which ge nerated this result tra nsmitted reference range : <=4.0. The reference r yessenia was not used to int erpret this result as normal/abnormal . [facility] HospitalJyxhxuaDUHVIKISWV4523-07-49 21:04:00 Test Item Value Reference Range Interpretation Comments MCV (test code = MCV) 92.1 80.0-98.0 [facility] HospitalHfykdbzIVBVGYAESD8647-88-94 21:04:00 Test Item Value Reference Range Interpretation Comments MCH (test code = MCH) 29.7 pg 27.0-31.0 [facility] HospitalTfcuqxcMFTSGZRNBS7060-58-00 21:04:00 Test Item Value Reference Range Interpretation Comments Hgb (test code = Hgb) 13.1 12.0-16.0 [facility] Hospit[id number] 21:04:00 Test Item Value Reference Range Interpretation Comments Hct (test code = Hct) 40.5 36.0-48.0 [facility] HospitalLpwdpmjVKGRQQPRVY2279-68-03 21:04:00 Test Item Value Reference Range Interpretation Comments RBC (test code = RBC) 4.40 4.20-5.40 [facility] HospitalEbupynsHGCXMWWRVU4591-13-13 21:04:00 Test Item Value Reference Range Interpretation Comments MCHC (test code = MCHC) 32.3 32.0-36.0 [facility] HospitalVjxfgszTZMGHVEYVX1752-50-78 21:04:00 Test Item Value Reference Range Interpretation Comments Platelet (test code = Platelet) 287 133-450 [facility] HospitalOtoxixjBMPZHSZDTM0420-24-20 21:04:00 Test Item Value Reference Range Interpretation Comments RDW (test code = RDW) 14.3 11.5-14.5 [facility] Hos[id number] 21:04:00 Test Item Value Reference Range Interpretation Comments MPV (test code = MPV) 8.5 7.4-10.4 [facility] HospitalHbrilawZROFKGSIOO1239-24-57 21:04:00 Test Item Value Reference Range Interpretation Comments WBC (test code = WBC) 20.4 3.7-10.4 [facility] HospitalCHEM [id number] 17:34:00 Test Item Value Reference Range Interpretation Comments Lactic Acid Lvl (test code = Lactic 1.4 0.5-2.2 Acid Lvl) [facility] HospitalThyrotropin [Units/volume] in Serum or [id number] 00:00:00 Test Item Value Reference Range Interpretation Comments TSH (test code = TSH) 1.8820 uIU/mL 0.3500-4.9400 [facility] - [facility] or Plasma [...] (test code = 7.0 calc anion gap) [facility] W Auto Differential panel - [id number] 00:00:00 Test Item Value Reference Range Interpretation [...] (test code = baso#) 0.050 x10*3/?L 0.001-0.080 [facility]
[2021-06-20] MEDS ORDERED: NA CHLORIDE 0.9% 1,000 ML ONE (01:49)
[2021-06-20] MEDS ORDERED: MORPHINE 4 MG/ML SYR ONE (01:49)
[2021-06-20] MEDS ORDERED: ONDANSETRON 4 MG/2 ML VIAL ONE (01:49)
[2021-06-20 02:21] LABS: Urine Bacteria 20-50 /HPF (<20); Urine RBC <5 /HPF (NONE SEEN)
[2021-06-20 02:21] LABS: Absolute Lymphocytes (CBC) 2.2 K/uL (0.7-4.9); Lymphocytes % 23.8 % (15.3-44.8); MPV 8.4 fL (7.6-11.3); RBC Red Blood Cell Count 4.56 M/uL (3.86-4.86)
[2021-06-20 02:30] LABS: Urine Blood Negative (Negative); Urine Glucose Negative (Negative); Urine Protein Negative (Negative); Urine Specific Gravity >=1.030 (1.005-1.030)
[2021-06-20 02:34] LABS: ALT/SGPT 19 U/L (12-78); AST/SGOT 12 U/L (15-37); Albumin 3.6 g/dL (3.4-5.0); Alkaline Phosphatase 64 U/L (45-117); BUN Blood Urea Nitrogen 11 mg/dL (7-18); Bicarbonate 20 mmol/L (21-32); Bilirubin Total 0.3 mg/dL (0.2-1.0); Glucose Level 88 mg/dL (74-106); Lipase 103 U/L (73-393); Protein, Total 6.8 g/dL (6.4-8.2); Sodium Level 141 mmol/L (136-145)
[2021-06-20 02:36] LABS: Bilirubin Direct < 0.1 mg/dL (0-0.2)
[2021-06-20] MEDS ORDERED: KETOROLAC 30 MG/ML INJ ONE (03:32)
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
[2021-06-20 07:21] VITALS: TEMP 98.6; O2SAT 100
[2021-06-20 07:23] VITALS: BP 127/78
--- NOTE | 2021-06-20 10:32 | RAD REPORT ---
EXAM DESCRIPTION: CT - Abdomen Pelvis W Contrast - 06/20/2021 3:40 am CLINICAL HISTORY: 35 years, Female, ABD PAIN COMPARISON: None. TECHNIQUE: Contrast-enhanced images of the abdomen and pelvis were performed utilizing 5 mm slice th ickness at 5 mm interval reconstruction from the lung bases to the ischial tuberosities after the adm inistration IV contrast. In addition multiplanar reformats in the coronal and sagittal plane were obtained and reviewed. This exam was performed according to our departmental dose-optimization protocol, which includes auto mated exposure control, adjustment of the mA and/or kV according to patient size and/or use of iterat david reconstruction technique. FINDINGS: The lung bases demonstrate to be clear. The liver, gallbladder, pancreas, spleen and adrenal glands demonstrate to be unremarkable, no focal lesions are noted. The kidneys demonstrate normal uptake of contrast media. No evidence for nephrolithiasis and/or hydro nephrosis. Grossly the unopacified stomach, small bowel and large bowel demonstrate to be within normal limits. There is no evidence for bowel dilatation and/or free air. The appendix is normal. The urinary bladder demonstrate to be unremarkable. The uterus is absent. There are no adnexal mass es. Trace of fluid within the rectovesical space on image 68-70. The aorta demonstrate to be normal . There is no retroperitoneal lymphadenopathy. There is no evidence for ascites. The rest of the so ft tissue and bony structures are within normal limits. IMPRESSION: Trace of fluid within the rectovesical space perhaps related to physiologic in nature an d/or post surgical changes. Status post hysterectomy. 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 The interpreting r adiologist is fully responsible for the content of the report.
--- NOTE | 2021-06-20 11:30 | EKG ---
Test Date: 2021-06-20 Test Time: 02:03:39 School Psychological Examiner: IRAJ MEASUREMENT RESULTS: Intervals: Rate: 57 MT: 124 QRSD: 76 QT: 392 QTc: 381 Silvis: P: 48 MT: 124 QRS: 53 T: 54 INTERPRETIVE STATEMENTS: Sinus bradycardia with sinus arrhythmia Low voltage QRS Borderline ECG No previous ECG available for comparison Electronically Signed On 06-20-21 11:28:50 LICENSED CERTIFIED ORTHOTIST by Chucho Dubois
== END 2021-06-20 03:40 | disposition home or self-care (01) ==
LOC: ER 00:59
DX: Z04.71 Encounter for examination and observation following alleged adult physical abuse (principal); R10.30 Lower abdominal pain, unspecified; F20.9 Schizophrenia, unspecified; F17.210 Nicotine dependence, cigarettes, uncomplicated; Z88.8 Allergy status to other drugs, medicaments and biological substances
CPT/HCPCS: 93005; 87088; 85025; 87086; 80048; 36415; 80076; 83690; 74177; 96375; 96374; 99284; Q9967; J7030; J2405; 81003; 81015

== ENCOUNTER 2021-06-30 09:53 | Emergency (ER) | payer OTHER ==
--- OUTSIDE RECORDS SUMMARY | 2021-06-30 09:56 | XMS REPORT | Clinical Summary ---
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 Surgical History Surgery Date Site/Laterality Comments FRACTURE SURGERY VA REMV UPPER 02/13/2016 Mouth/Left Procedure: MAXIL LECTOMY, JAW-MAXILLECTOMY WITHOUT ORBITAL EXTENERATION; Surgeon: Isidro Salgado MD; Location: MAIN OR; Service: HN - HEAD & NECK SURGERY VA DENTAL SURGERY PROCEDURE 02/13/2016 N/A Proc edure: DENTAL EXTRACTION(S); Surgeon: Dusty Gross DDS; Location: MAIN OR; Service: OR AL ONCOLOGY & MAXILLOFACIAL VA OSTHODONTICS VA RECMPL WND SCALP,EXTR 02/13/2016 N/A Procedu re: [...] Vaccination (1) 08/25/1988 Implants Implanted Type 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 Device Identifier Shelf Exp iration Model / Date Serial / L ot [employer] Brand Pin Name Description: PIN and Screws in Fibula Results Not on fileafter 06/30/2020 Insurance Payer Benefit Plan / Subscriber ID Effective Phone Address T ype Group Dates HUMANA MEDICARE HU[employer]NA GOLD PLUS [id number] 2019-Pres [address] Medicare MEDICARE HMO ent [address] [place] [address] MED[place] [id number] 2019-Pres [address] Medicaid TRADITIONAL TRADITIONAL STAR ent [id number] [place] [address] Areli Gómez Dental Self 1985 [address] (Home) [place] [id number] Advance Directives Type Date Recorded 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
--- OUTSIDE RECORDS SUMMARY | 2021-06-30 09:59 | XMS REPORT | Continuity of Care Document ---
:1985 Author Organization [facility] t Address [address] [place] [address] [address] [place] [address] Care Team Providers Name Role Phone CARLOS JACOBO Primary Care Physician Unavailable ODALIS Attending Clinician Unavailable Orlando CARDONA Attending Clinician Darius RADER Attending Clinician NIELS Attending Clinician Unavailable PIETER CHAPA Attending Clinician Unavailable Marie FREY Attending Clinician Unavailable ANDREW Attending Clinician Unavailable Payers Payer Name Policy Policy Number Effective Expiration Source Type Date Date HUMANA MEDICAREHUMANA [id number] 2019 MD Genaro BURGOS PLUS MEDICARE 00:00:00 [id number] 2019-Pr [address] [place] [id number] MEDICAID [place] [id number] 2019 MD Blank rios TRAD[place]AL[place] 00:00:00 TRADITIONAL STAR NON [id number] 2019-Pr [address], [place] [address]Medicaid HUMANA CHOICECARE O [id number] 2018 00:00:00 MEDICAID OF [place] [id number] 2018 00:00:00 Problems Condition Condition Condition Status Onset Resolution Last Treating Co mments Source Name Details Category Date Date Treatment Clinician Date FACIAL Diagnosis Active 2017-042018-03-17 Mem oria SORES, 05-17 16:03:00 l MUSCLE FACIAL 00:00: Carlo SPASMS, SORES, 00 LEFT ARM MUSCLE PA SPASMS, LEFT ARM PA Active 8 [facility] SEPSIS Diagnosis Active 2017-10-12 Mem oria 10-11 16:23:00 l SEPSIS 00:00: Carlo 00 Active 10/11/2017 [facility] CANCER PT, Diagnosis Active 2017-10-11 Memoria PAIN, 10-11 16:04:00 l INFECTION CANCER 00:00: Sulma nn PT, PAIN, 00 INFECTION Active 10/11/2017 [facility] Pain of Pain of Disease [...] l PAIN 00:00: Carlo 00 Active 11/22/2015 [facility] Explosive Explosive Disease Active personalit personalit 10-02 An derso y disorder y disorder 00:00: n 00 Tobacco Tobacco Disease Active MD use use 09-18 Anderso 00:00: n 00 Major Major Disease Active MD depression depression 09-18 An derso , , 00:00: n melancholi melancholi 00 c type c type 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 c cyst 09-01 Anderso 00:00: n 00 Mood Mood Problem Active Village disorder Disorder 5-04 Family 00:00: Practic 00 e Endometrio Endometrio Problem Active [facility] sis sis 5-04 Family (clinical) (Clinical) 00:00: Pr actic 00 e Cyst of Cyst of Problem Active [facility] ovary Ovary 5-04 Family 00:00: Practic 00 e Degenerati Degenerati Problem Active [facility] on of on of -04 Family cervical Cervical 00:00: Practi c interverte Interverte 00 e bral disc bral Disc Degenerati Degenerati Problem Active [facility] on of on of -04 Family lumbar Lumbar 00:00: Practic interverte Interverte 00 e bral disc bral Disc Ovarian Ovarian Disease Active Overview: cyst cyst 24 Formattin Anderso 00:00: g of this n 00 note might be different from the original. HL ICD10 regulator y upload VOMITING Diagnosis Active 2015-10-10 M emoria 04-24 11:00:00 l VOMITING 00:00: Navi n 00 Active 04/24/2015 [facility] Pain in Problem 2018-10-05 Dmitriy ela left lower 13:31:52 l leg Pain in [place] left lower leg 10/05/2018 [place] Cough Problem 2018-10-05 Memor ia 13:31:52 l Cough Carlo 10/05/2018 [facility] Nicotine Problem 2018-10-05 Mem oria dependence 13:31:52 l , Nicotine Navi n cigarettes dependence , , uncomplica cigarettes susanne , uncomplica susanne 10/05/2018 [facility] Chronic Problem 2018-10-05 Dmitriy ela obstructiv 13:31:52 l e Chronic [place] pulmonary obstructiv disease, e unspecifie pulmonary d disease, unspecifie d 10/05/2018 [facility] None Problem Resolve 2020-01-11 Dmitriy ela (qualifier d 21:56:10 l value) None Carlo (qualifier value) Resolved Problem 01/11/2020 [facility] SEPSIS, Diagnosis Active 2017-10-12 Me moria UNSPECIFIE 16:23:00 l D ORGANISM SEPSIS, Her prasad UNSPECIFIE D ORGANISM Active [facility] History of Past Illness Condition Condition Condition Status Onset Resolution Last Treating Co mments Source Name Details Category Date Date Treatment Clinician Date Other Problem 2017-042018-10-05 2018-10-05 M emoria chest pain 2- 13:31:52 13:31:52 l Other 04:34: [place] chest pain 14 03/24/2018 10/05/2018 [facility] Chest Problem 2017-042018-10-05 2018-10-05 M emoria pain, 05-17 13:31:52 13:31:52 l unspecifie Chest 06:00: Sulma nn d pain, 00 unspecifie d 03/17/2018 10/05/2018 [facility] Pain in Problem 2017-042018-10-05 2018-10-05 Memoria leg, 05-17 13:31:52 13:31:52 l unspecifie Pain in 06:00: Her prasad d leg, 00 unspecifie d 03/17/2018 10/05/2018 [facility] Shortness Problem 2017-042018-10-05 2018-10-05 Memoria of breath 05-17 13:31:52 13:31:52 l 06:00: Carlo Shortness 00 of breath 03/17/2018 10/05/2018 [facility] Allergies, Adverse Reactions, Alerts Allergy Allergy Status Severity Reaction(s) Onset Inactive Treating Comm ents Source Name Type Date Date Clinician GABAPENT Allergy Active [facility] LORAZEPA Allergy Active Low Anxiety 2019-[address] [facility] [facility] 00:[facility]: [...] Known DA Active [facility] All[facility]ie 4[facility] s 00:00: [facility] 00 Medical Vici Lyrica Allergy Active [place] to Family substanc [...] Date Stop Date Quantity Comments Source History SDOH MD Lam Alcohol Frequency History SDOH MD Lam Alcohol Std Drinks History SDOH MD Lam Alcohol Binge Alcohol intake 2018-01-29 [...] 00:00:00 every week/day Social History 2015-04-24 2015-04-24 [facility] 13:58:55 13:58:55 Sex Ass[birth year] At [birth year] MD [place] on 00:00:00 00:00:00 Smoking Status Start Date Stop Date Source Heavy Tobacco Smoker [facility] Practice Ex-smoker 2016-02-19 00:00:00 2016-02-19 00:00:00 MD [...] l / 19:00: Duoneb) Carlo Ipratropium 00 [place] 0.167 MG/ML Inhalant Solution [DuoNeb] Zofran No Notes: Memoria - (Same as: l 18:50: Zofran) Carlo MEDICATION WASTE Product Size: 4 mg Product Wasted: ___ mg Sucralfate No 1 gm, Memori a - Route: PO, l 14:00: Drug form: [place] 00 TAB, TID, Dosing Weight 77.443, kg, Start date: 10/13/17 9:00:00 CDT, Duration: 30 day, Stop date: 11/11/17 17:00:00 CDT D5W 1/4NS + No Notes: Dmitriy ela KCL 10mEq/L PREMIX IV l 1000ml 12:54: - Do Not Carlo (Premix) 00 Alter 1,000 mL WASTE: F/P - Sink; E - Municipal Trash Bin Sucralfate No Notes: August emoria -27 interfere l 05:01: w/enteral Carlo 00 feeds - Take 1 hr before [...] Memoria - Tablet l 21:30: should not Carlo 00 be chewed or crushed. (Same as: Protonix) Midodrine No Notes: Memori a - (Same l 18:00: as:Proamat [place] 00 ine) D5NS + KCL No Notes: Memor ia 20mEq/L 10-12 PREMIX IV l 1000ml 14:14: - Do Not [place] (Premix) 00 Alter 1,000 mL WASTE: F/P - Sink; E - Municipal Trash Bin Trazodone No Notes: Memori a - (Same As: l 14:12: Desyrel) Carlo 00 duloxetine No 30 mg, Memor ia 10-12 Route: PO, l 14:00: Drug form: [place] 00 DRC, Daily, Dosing Weight 77.443, kg, Start date: 10/12/17 9:00:00 CDT, Duration: 30 day, Stop date: 11/10/17 9:00:00 CDT cefepime No Notes: Memoria 6- (Same As: l 07:00: Maxipime) Carlo 00 MEDICATION WASTE Product Size: 1000 mg Product [...] 10-12 cap, PO, l delayed 01:59: Daily, [place] release take with capsule 60 mg tablet for total of 90 mg, 0 Refill(s) pantoprazol Yes 40 mg = 1 M emoria e 40 mg 10-12 tab, PO, l oral 01:26: Daily, # Carlo enteric 00 30 tab, 0 coated Refill(s) tablet Combivent Yes 1 puff, Memor ia Respimat 10-12 INHALATION l 01:26: , PRN [place] Shortness of breath, 0 Refill(s) Promethazin Yes 25 mg = 1 M emoria e - tab, PO, l Hydrochlori 01:26: Q6H, PRN He rmann de 25 MG 00 as needed Oral Tablet for nausea/vom iting, 0 Refill(s) Lorazepam 1 Yes 1 mg = 1 Me moria MG Oral 10-12 tab, PO, l Tablet 01:26: BID, PRN [place] 00 as needed for anxiety, 0 Refill(s) Oxycodone Yes 10 mg = 10 Me moria Hydrochlori - mL, PO, l de 1 MG/ML 01:26: Q6H, PRN Her prasad Oral 00 Pain Score Solution 6-10, 0 Refill(s) carisoprodo Yes 350 mg = 1 Memoria l 350 mg - tab, PO, l oral tablet 01:26: TID, PRN He rmann 00 Muscle Spasms, 0 Refill(s) Acetaminoph Yes 1 tab, PO, Memoria en 325 MG / 6- Q6H, PRN l Hydrocodone 01:26: Pain Score [place] Bitartrate 00 1-5, 0 10 MG Oral Refill(s) Tablet DULoxetine Yes 60 mg = 1 Me moria 60 mg oral 6-26 cap, PO, l delayed 01:26: Daily, take with capsule 30 mg tablet for a total of 90 mg, 0 Refill(s) Flagyl No Notes: Memoria 6-26 (Same as: l 01:00: Flagyl) Avoid alcohol. Zofran No Notes: Memoria 6-26 (Same as: l 00:06: Zofran) MEDICATION WASTE Product Size: 4 mg Product Wasted: ___ mg Tylenol No Notes: Do Memor ia - not exceed l 00:06: 4 gm/day. (Same as: Tylenol) Albuterol No Notes: Memori a 0.833 MG/ML 10-12 (Same as: l / 00:06: Duoneb) Ipratropium 00 [place] 0.167 MG/ML Inhalant Solution [DuoNeb] cefepime No Notes: Memoria 6-25 (Same as: l 22:18: Maxipime) MEDICATION WASTE [...] moria IV 25 1,000 l 21:25: ml/hr, Carlo 00 Infuse [...] Saline 2017-0 No Notes: Memoria Flush 0.9% 25 Same as: l 17:16: BD Carlo 00 Posiflush Sterile Sodium 2017-0 No 1,000 mL, Memori a Chloride 25 1000 l 0.9% 17:16: ml/hr, Carlo (Bolus) IV 00 Infuse Over: 1 hr, [...] nebulizati on route. carisoprodo carisoprodo No carisoprod [facility] l 350 mg l 350 mg ol 350 mg Fa carlitos tablet take tablet take tablet Practic 2 tablets 2 tablets take 2 e in the in the tablets in morning and morning and the 2 at 2 at morning bedtime bedtime and 2 at bedtime carisoprodo carisoprodo No carisoprod [facility] l 350 mg l 350 mg ol [...] finishing 30mg dose diclofenac diclofenac No diclofenac [facility] sodium 3 % sodium 3 % sodium 3 % Family gel gel gel Practic e doxepin doxepin No doxepin Villag e hydrochlori hydrochlori hydrochlor Family de 5 % crea de 5 % crea uri 5 % Practic crea e doxycycline doxycycline No 1capsul BID doxycyclin [facility] hyclate 100 hyclate 100 e(s) e hyclate [...] Family caps caps mg caps Practic e Fleming 10 Fleming 10 No 1 Q4H Fleming 10 Jasiel angie mg-325 mg mg-325 mg [...] route at bedtime. bedtime. bedtime. combivent combivent 2018- No combivent Village aer 20-100 aer 20-100 01-20 aer Family 00:00 20-100 Practic :00 e amox/k clav amox/k clav 2016- No amox/k Village tab tab 08-31 clav tab Family [phone] 00:00 875-125 [...] No lidocaine Village % ptch % ptch 08-31 5 % ptch Family 00:00 Practic :00 e lorazepam 1 lorazepam 1 2016- No lorazepam Village mg tabs mg tabs 08-31 1 mg tabs Fam darius 00:00 Practic :00 e lyrica 75 lyrica 75 2017- No lyrica 75 Village mg caps mg caps 08-31 mg caps Famil y 00:00 Practic :00 e oxycodone oxycodone 2016- No oxycodone [facility] hcl 5 hcl 5 -31 hcl 5 Family mg/5ml soln mg/5ml soln 00:00 mg/5ml Practic :00 soln e stiolto stiolto 2016- No stiolto Torres ge aer aer -31 aer Family 2.5-2.5 2.5-2.5 00:00 2.5-2.5 Pract ic :00 e temazepam temazepam 2016- No temazepam [facility] 15 mg caps 15 mg caps 12-17 15 mg caps Family 00:00 Practic :00 e tizanidine tizanidine 2016- No 1 TID tizanidine [facility] 4 mg tablet 4 mg tablet 12-17 [...] every day by inhalation route. apap/codein apap/codein 2017- No apap/codei Village e tab e tab 02-10 ne tab Family 300-60mg 300-60mg 00:00 300-60mg Pr actic :00 e clonazepam clonazepam 2016- No clonazepam [facility] 0.5 mg tabs 0.5 mg tabs 0210 0.5 mg Family 00:00 tabs Practic :00 e glycopyrrol glycopyrrol 2016- No glycopyrro [facility] ate 2 mg ate 2 mg 02-10 late 2 mg F amily tabs tabs 00:00 tabs Practic :00 e hydroco/apa hydroco/apa 2017- No hydroco/ap [place] p tab p tab 02-10 ap tab Family 5-325mg 5-325mg 00:00 5-325mg Pract ic :00 e ibuprofen ibuprofen 2017- No ibuprofen [facility] 800 mg tabs 800 mg tabs 02-10 800 mg Family 00:00 tabs Practic :00 e ketorolac ketorolac 2017- No ketorolac [facility] tromethamin tromethamin 0210 tromethami Family e 10 mg e 10 mg 00:00 ne 10 mg Prac tic tabs tabs :00 tabs e lamotrigine lamotrigine 2017- No lamotrigin [facility] 25 mg tabs 25 mg tabs 02-10 e 25 mg Family 00:00 tabs Practic :00 e meloxicam meloxicam 2017- No meloxicam [facility] 7.5 mg tabs 7.5 mg tabs 0210 7.5 mg Family 00:00 tabs Practic :00 e mirtazapine mirtazapine 2017- No mirtazapin [facility] 15 mg tabs 15 mg tabs 02-10 e 15 mg Family 00:00 tabs Practic :00 e oxycodone oxycodone 2017- No oxycodone [facility] hcl 10 mg hcl 10 mg 02-10 hcl 10 mg Family tabs tabs 00:00 tabs Practic :00 e prazosin prazosin 2017- No prazosin Vi llage hcl 2 mg hcl 2 mg 02-10 hcl 2 mg Fa carlitos caps caps 00:00 caps Practic :00 e promethazin promethazin 2017- No promethazi [facility] e hcl 25 mg e hcl 25 mg 02-10 ne hcl 25 Family tabs tabs 00:00 mg tabs Practic :00 e risperidone risperidone 2017- No risperidon [facility] 1 mg tabs 1 mg tabs 02-10 e 1 mg Fa carlitos 00:00 tabs Practic :00 e sertraline sertraline 2017- No sertraline [facility] hcl 50 mg hcl 50 mg 02-10 hcl 50 mg Family tabs tabs 00:00 tabs Practic :00 e smz/tmp ds smz/tmp ds 2017- No smz/tmp ds Village tab tab 02-10 tab Family [phone] 00:00 800-160 Pract ic :00 e topiramate topiramate 2017- No topiramate [facility] 25 mg tabs 25 mg tabs 05-29 25 mg tabs Family 00:00 Practic :00 e Immunizations Ordered Immunization Filled Immunization Date Status Commen ts Source Name Name Tdap Tdap 2014-11-07 Completed [facility] Family 00:00:00 Practice Vital Signs Vital Name Observation Time Observation Value Comments Source HEIGHT 2020-05-02 07:25:00 157.5 cm WEIGHT 2020-05-02 07:25:00 79.833 kg Respitory Rate 2018-03-18 05:30:00 Memori al Carlo Systolic (mm Hg) 2018-03-18 05:30:00 Dmitriy rial Carlo Diastolic (mm Hg) 2018-03-18 05:30:00 Mem orial [place] Heart Rate 2018-03-18 05:30:00 [facility] [place] Weight 2018-03-17 20:01:00 [facility] [place] Temperature Oral (F) 2018-03-17 20:01:00 97.9 F [facility] [place] Heart Rate 2018-03-17 20:01:00 Memorial Carlo Respitory Rate 2018-03-17 20:01:00 Memori al Carlo Systolic (mm Hg) 2018-03-17 20:01:00 Dmitriy rial [place] Diastolic (mm Hg) 2018-03-17 20:01:00 Mem orial Carlo Systolic (mm Hg) 2017-10-13 15:31:00 Dmitriy rial [place] Diastolic (mm Hg) 2017-10-13 15:31:00 Mem orial [place] Heart Rate 2017-10-13 15:31:00 Memorial [place] Temperature Oral (F) 2017-10-13 15:31:00 97.8 F Memorial Carlo Respitory Rate 2017-10-13 15:31:00 Memori al Carlo Systolic (mm Hg) 2017-10-13 12:19:00 Dmitriy rial Carlo Diastolic (mm Hg) 2017-10-13 12:19:00 Mem orial Carlo Respitory Rate 2017-10-13 12:19:00 Memori al Carlo Temperature Oral (F) 2017-10-13 12:19:00 98.6 F Memorial [place] Heart Rate 2017-10-13 12:19:00 Memorial [place] Heart Rate 2017-10-13 07:45:00 [facility] [place] Respitory Rate 2017-10-13 07:45:00 Memori al Carlo Systolic (mm Hg) 2017-10-13 07:45:00 Dmitriy rial [place] Diastolic (mm Hg) 2017-10-13 07:45:00 Mem orial Carlo Temperature Oral (F) 2017-10-13 07:45:00 98.2 F [facility] [place] BMI Calculated 2017-10-12 01:12:00 Memori al Carlo Height 2017-10-12 01:12:00 157.48 cm Memorial Carlo Weight 2017-10-12 01:12:00 Memorial Carlo BMI Calculated 2017-10-11 16:32:00 Memori al [place] Height 2017-10-11 16:32:00 157.48 cm Memorial [place] Weight 2017-10-11 16:32:00 Memorial Carlo BP Diastolic [...] Practice BP Diastolic 2016-12-17 00:00:00 70 mm[Hg] [facility] Height 2016-12-17 00:00:00 62 [in_i] [facility] BMI (Body Mass Index) 2016-12-17 00:00:00 31.8 kg/m2 [facility] BP Systolic 2016-12-17 00:00:00 130 mm[Hg] [facility] Body Weight 2016-12-17 00:00:00 173.6 [lb_av] [facility] BP Diastolic 2016-05-29 00:00:00 76 mm[Hg] [facility] Height 2016-05-29 00:00:00 62 [in_i] [facility] BMI (Body Mass Index) 2016-05-29 00:00:00 32.2 kg/m2 [facility] BP Systolic 2016-05-29 00:00:00 106 mm[Hg] [facility] Body Weight 2016-05-29 00:00:00 176 [lb_av] [facility] BP Diastolic 2015-08-21 00:00:00 76 mm[Hg] [facility] Height 2015-08-21 00:00:00 61 [in_i] [facility] BMI (Body Mass Index) 2015-08-21 00:00:00 27.40 kg/m2 [facility] BP Systolic 2015-08-21 00:00:00 130 mm[Hg] [facility] Body Weight 2015-08-21 00:00:00 145 [lb_av] [facility] Procedures Procedure Date / Time Performed Performing Clinician Sourc e 2VIEWS RADIOLOGIC 2017-07-12 00:00:00 [facility] Stephen urbina EXAMINATION, CHEST Practice Other 2015-04-19 00:00:00 [facility] Fami ly Practice Other 2004-04-19 00:00:00 [facility] ly Practice Myomectomy [facility] Dilation and curettage [facility] Plan of Care Planned Activity Planned Date Details Comments Source Future Scheduled Test 1988-08-25 00:00:00 COVID-19 Vaccination MD Lam (1) [code = COVID-19 Vaccination (1)] Encounters Start End Encounter Admission Attending Care Care Encounter Source Date/Time Date/Time Type Type Clinicians Facility Department ID 2020-12-20 2020-12-20 Outpatient ODALIS [facility] [id number] [place] 00:00:00 00:00:00 KRISTAL [address] 2020-12-19 2020-12-19 Outpatient ODALIS, [facility] [id number] [place] 00:00:00 00:00:00 KRISTAL [address] 2020-11-26 2020-11-26 Outpatient ODALIS, [facility] [id number] [place] 00:00:00 00:00:00 KRISTAL [address] 2020-06-28 2020-06-28 Outpatient ODALIS, [facility] [id number] [place] 00:00:00 00:00:00 KRISTAL [address] 2020-05-02 2020-05-02 Emergency ER [facility] Emergency [id number] [facility] 07:18:00 07:18:00 2020-04-25 2020-04-25 Outpatient ODALIS, [facility] [id number] [place] 00:00:00 00:00:00 KRISTAL [address] 2020-03-28 2020-03-28 Outpatient ODALIS, [facility] [id number] [place] 00:00:00 00:00:00 KRISTAL [address] 2020-03-01 2020-03-01 Outpatient NIELS, [facility] [id number] [place] 00:00:00 00:00:00 MAHI 107 [facility] 2020-03-01 2020-03-01 Outpatient NIELS, [facility] [id number] [place] 00:00:00 00:00:00 MAHI 835 [facility] 2020-03-01 2020-03-01 Outpatient NIELS, [facility] [id number] [place] 00:00:00 00:00:00 MAHI 905 [facility] 2020-01-19 2020-01-19 Outpatient MHIE MHIE [id number] Memoria 09:00:00 09:00:00 00 l Carlo 2020-01-05 2020-01-07 Phone nullFlavo MNA [id number] Memoria 19:44:37 04:59:59 Message r Neuroscienc 01 l gee Rhodes [facility] 2019-12-19 2019-12-19 Outpatient RUBENS CHAPA MDA MDA [id number] 00:00:00 00:00:00 Cosmo rios 2019-12-19 2019-12-19 Outpatient EL CHAMBERS, MDA MDA [id number] 00:00:00 00:00:00 ARYA rios 2019-12-18 2019-12-18 Outpatient ODALIS, [facility] [id number] [place] 00:00:00 00:00:00 KRISTAL 376 [facility] 2019-12-18 2019-12-18 Outpatient ODALIS, [facility] [id number] [place] 00:00:00 00:00:00 KRISTAL 377 [facility] 2019-12-18 2019-12-18 Outpatient ODALIS, [facility] [id number] [place] 00:00:00 00:00:00 KRISTAL 379 [facility] 2019-12-12 2019-12-12 Outpatient EL MORALES, MDA MDA [id number] 00:00:00 00:00:00 KRISTAL rios 2019-12-12 2019-12-12 Outpatient EL MORALES, MDA MDA [id number] 00:00:00 00:00:00 KRISTAL rios 2019-12-12 2019-12-12 Outpatient EL GROSS, RUBENS MDA MDA [id number] 00:00:00 00:00:00 Cosmo rios 2019-12-05 2019-12-07 Phone nullFlavo MNA [id number] Memoria 15:24:31 04:59:59 Message r Neuroscienc 00 l e [facility] 2019-06-15 2019-06-15 Outpatient ODALIS, [facility] [id number] [place] 00:00:00 00:00:00 KRISTAL 830 [facility] i 2018-03-17 2018-03-18 Emergency nullFlavo [facility] [id number] Memoria 19:43:00 06:28:00 radha Shaw [facility] 2018-01-29 2018-01-29 Emergency EL MDA MDA [id number] MD 06:35:18 06:35:18 Cosmowillie rios 2017-10-11 2017-10-13 Inpatient nullFlavo [facility] [id number] Memoria 16:29:00 20:10:00 radha Shaw [facility] 2017-07-12 2017-07-12 Kahlil Mcmullen, [facility] [place] - [id number] [facility] 00:00:00 00:00:00 MD: [id number] [facility] [address], [facility] [address] , Ph. 2017-06-24 2017-06-24 Kahlil Mcmullen [facility] [place] - [id number] [facility] 00:00:00 00:00:00 MD: [id number] [facility] [address], Practice - [address], [facility] [address] , Ph. 2017-05-27 2017-05-27 Kahlil Mcmullen [facility] [place] - [id number] [facility] 00:00:00 00:00:00 MD: [id number] [facility] [address], Practice - [address], [facility] [address] , Ph. 2016-12-17 2016-12-17 Manolo James [facility] [place] - [id number] V illage 00:00:00 00:00:00 [facility] MD[facility] [id number] [facility] [address] [address], [facility] [address], [place] [address] , Ph. 2016-05-29 2016-05-29 Kahlil Mcmullen, [facility] - [id number] [facility] 00:00:00 00:00:00 MD: [id number] [facility] [address] Practice - [address], [facility] [address] , Ph. Results Test Description Test Time Test Comments Results Result [facility] e Comments CT, ABDOMEN 2020-05-02 Unlisted Reason 08:48:00 for Exam - Click Yes and CHI Enter Reason [facility] Below->[facility] CENTERName: DOMINGO this procedure BRADEN PERKINS [...] MDReport Verified Date/Time: 05/02/2020 08:48:17 Reading Location: [facility] B1 C013X Ortho Consult Reading Room , SHOULDER, 2018-09-22 Reason for FINAL REPORT PATIENT COMPLETE (MIN 2 14:10:00 exam:->SHOULDER ID: [id number] VIEWS), RIGHT INJURY Clinical Diagnosis: Shoulder injury [...] MDReport Verified Date/Time: 09/22/2018 14:10:10 Reading Location: [facility] B1 C013W Consult Reading Room - MRI L-SPINE W/O 2018-08-08 FAX: Barno Moreno CONT 15:26:00 Sukh CARDONA [phone] [place]: St: [facility] FAX: London Ahumada DO [phone] Patient Name: BRADEN LANE Unit No: [id number] EXAMS: CPT CODE: [id number] MRI L-SPINE W/O CONT [id number] Location: T 18 MRI lumbar spine, 08/08/18 TECHNIQUE: MRI assessment of the lumbosacral spine without contrast was performed on a high field magnet. Multiplanar and multisequence technique acquired. COMPARISON EXAMS: CT examination of the lumbar spine 08/08/18 CLINICAL HISTORY: L5-S1 impingement. Patient presenting to the emergency room with lower back pain. FINDINGS: Five [id number] lumbar appearing bodies are presumed for the [...] this level is a focal central [facility] NAME: BRADEN L[address] [place] [address] PHYS: Baron Manriquez, [place] [address] : 1985 AGE: 32 SEX: F LOC: JORDAN Lopez PHONE #: [phone] EXAM DATE: 08/08/2018 STATUS: ADM IN FAX #: [phone] RAD NO: DC Dt: PAGE 1 Signed Report (CONTINUED) FAX: Baron Moreno MD [phone] [place]: St: ADM FAX: London Ahumada DO [phone] Patient Name: BRADEN LANE Unit No: [id number] EXAMS: CPT CODE: [id number] MRI L-SPINE W/O CONT [id number] <Continued> protrusion protrudes 4 mm, without displacement [...] D/T: S: 08/08/2018 (1529) EMELI Leavitt NAME: [address] PHYS: Baron Manriquez, [place] [address] : 1985 AGE: 32 SEX: F LOC: JORDAN Lopez PHONE #: [phone] EXAM DATE: 08/08/2018 STATUS: ADM IN FAX #: [phone] RAD NO: DC Dt: PAGE 2 Signed [...] MG 1 NORMAL LIPINDEX) Index/DL CBC W/AUTO [id number] 13:31:00 Test Item Value Reference Range Interpretation [...] 0.0-0.05 N NRBC#) - CT T-SPINE W/O [id number] 12:05:00 Patient Name: BRADEN LANE Unit No: [id number] EXAMS: CPT CODE: [id number] CT T-SPINE W/O CONTRAST 56264 CT thoracic spine without contrast CT lumbar [...] by: Darwin Reich M.D. CC: Federico Estrada [employer]CH[employer]IC Dictated Date/Time: 08/08/2018 (8777) Technologist: Alexandro Corbett CTDI: 14.00 DLP: 756.63 Trnscrpt: 08/08/2018 (3905) [email or web address] EMELI Leavitt NAME:[address] PHYS: NICOLE Slater Federico Estrada NP [place] [address] : 1985 AGE: 32 SEX: F LOC: DeepakFAB PHONE #: [phone] EXAM DATE: 08/08/2018 STATUS: REG ER FAX #: [phone] RAD #: D/C DT PAGE 1 Signed Report Patient Name: BRADEN LANE Unit No: [id number] EXAMS: CPT CODE: [id number] CT T-SPINE W/O CONTRAST 01368 <Continued> Orig Print D/T: S: 08/08/2018 (2089) [facility] NAME: [address] PHYS: NICOLE Slater Federico Estrada NP [place] [address] : 1985 AGE: 32 SEX: F : GabrielleERS PHONE #: [phone] EXAM DATE: 08/08/2018 STATUS: REG ER FAX #: [phone] RAD #: D/C DT PAGE 2 Signed Report- CT L-SPINE W/O [id number] 12:04:00 Patient Name: BRADEN L[address] Unit No: [id number] EXAMS: CPT CODE: [id number] CT L-SPINE W/O CONTRAST 51138 CT thoracic spine without contrast CT lumbar [...] Federico Estrada NP Dictated Date/Ti me: 08/08/2018 (8849) Technologist: Alexandro Corbett CTDI: DLP: Trnscrpt: 08/08/2018 (4608) [email or web address] EMELI Leavitt NAME:[address] [place] [address] PHYS: Federico Temple NP [place] [address] : 1985 AGE: 32 SEX: F LOC: GabrielleERS PHONE #: [phone] EXAM DATE: 08/08/2018 STATUS: REG ER FAX #: [phone] RAD #: D/C DT PAGE 1 Signed Report Patient Name: BRADEN L[address] Unit No: [id number] EXAMS: CPT CODE: [id number] CT L-SPINE W/O CONTRAST 16021 <Continued> Orig Print D/T: S: 08/08/2018 (9867) MAGALIEAnnalisa Leavitt NAME: [address] [place] [address] PHYS: Federico Temple NP [place] [address] : 1985 AGE: 32 SEX: F : GabrielleERS PHONE #: [phone] EXAM DATE: 08/08/2018 STATUS: REG ER FAX #: [phone] RAD #: D/C DT PAGE 2 Signed ReportCARDIAC [id number] 00:05:00 Test Item Value Reference Range Interpretation Comments Total CK (test code = Total CK) 89 12-191 [facility]&W CommunicationsCARKakaMobiAC [id number] 00:05:00 Test Item Value Reference Range Interpretation Comments Troponin-I (test code no gt See_Comment [Auto mated message] The = Troponin-I) system which g enerated this result transmit susanne reference range : <=0.40. The reference r yessenia was not used to interpr et this result as ingrid l/abnormal. [facility] [employer] [id number] 00:05:00 Test Item Value Reference Range Interpretation Comments BNP (test code = BNP) 34 [facility] [employer] [id number] 00:05:00 Test Item Value Reference Range Interpretation Comments eGFR (test code = eGFR) 66 [facility] [employer] [id number] 00:05:00 Test Item Value Reference Range Interpretation Comments AST (test code = AST) 17 See_Comment [Auto mated message] The system which ge nerated this result transmit susanne reference range : <=37. The reference range was not used to interpr et this result as ingrid l/abnormal. [facility] [employer] [id number] 00:05:00 Test Item Value Reference Range Interpretation Comments Total Protein (test code = Total 7.4 6.4-8.4 Protein) [facility] [employer] [id number] 00:05:00 Test Item Value Reference Range Interpretation Comments Albumin Lvl (test code = Albumin Lvl) 3.7 3.5-5.0 [facility] [employer] [id number] 00:05:00 Test Item Value Reference Range Interpretation Comments ALT (test code = ALT) 15 See_Comment [Auto mated message] The system which ge nerated this result transmit susanne reference range : <=65. The reference range was not used to interpr et this result as ingrid l/abnormal. [facility] [employer] [id number] 00:05:00 Test Item Value Reference Range Interpretation Comments Calcium Lvl (test code = Calcium Lvl) 8.9 8.5-10.5 [facility] [employer] [id number] 00:05:00 Test Item Value Reference Range Interpretation Comments Alk Phos (test code = Alk Phos) 85 39-136 [facility] [employer] [id number] 00:05:00 Test Item Value Reference Range Interpretation Comments Bili Total (test code = Bili Total) 0.2 0.2-1.3 [facility]2018-11-30 00:05:00 Test Item Value Reference Range Interpretation Comments Glucose Lvl (test code = Glucose Lvl) 76 70-99 [facility]2018-11-30 00:05:00 Test Item Value Reference Range Interpretation Comments Sodium Lvl (test code = Sodium Lvl) 140 135-145 [facility]2018-11-30 00:05:00 Test Item Value Reference Range Interpretation Comments Potassium Lvl (test code = Potassium 3.8 3.5-5.1 Lvl) [facility]2018-11-30 00:05:00 Test Item Value Reference Range Interpretation Comments Chloride Lvl (test code = Chloride Lvl) 106 95-109 [facility]2018-11-30 00:05:00 Test Item Value Reference Range Interpretation Comments CO2 (test code = CO2) 26 24-32 [facility]2018-11-30 00:05:00 Test Item Value Reference Range Interpretation Comments BUN (test code = BUN) 11 7-22 [facility]2018-11-30 00:05:00 Test Item Value Reference Range Interpretation Comments Creatinine Lvl (test code = Creatinine 1.09 0.50-1.40 Lvl) [facility]2018-11-30 00:05:00 Test Item Value Reference Range Interpretation Comments Globulin (test code = Globulin) 3.7 2.7-4.2 [facility]2018-11-30 00:05:00 Test Item Value Reference Range Interpretation Comments A/G Ratio (test code = A/G Ratio) 1.0 1 0.7-1.6 [facility]2018-11-30 00:05:00 Test Item Value Reference Range Interpretation Comments AGAP (test code = AGAP) 11.8 10.0-20.0 [facility]2018-11-30 00:05:00 Test Item Value Reference Range Interpretation Comments B/C Ratio (test code = B/C Ratio) 10 1 6-25 [facility]2018-11-30 00:05:00 Test Item Value Reference Range Interpretation Comments Lipase Lvl (test code = Lipase Lvl) 149 73-393 [place] [address]2018-11-30 00:05:00 Test Item Value Reference Range Interpretation Comments S Preg (test code = S Negative *NA*(03/17/18 Preg) 6:05 PM) [facility] [id number] 00:05:00 Test Item Value Reference Range Interpretation Comments Monocytes (test code = Monocytes) 4.2 2.0-12.0 [facility] SouthLkasaqlCJBTNJUOAF8236-77-74 00:05:00 Test Item Value Reference Range Interpretation Comments Lymphocytes (test code = Lymphocytes) 18.8 20.0-40.0 [facility] SouthCulbyvsGIQAPKBAPI4119-66-14 00:05:00 Test Item Value Reference Range Interpretation Comments Segs (test code = Segs) 67.1 45.0-75.0 [facility] SouthPxojpmdZTMWNCHNQF5286-99-81 00:05:00 Test Item Value Reference Range Interpretation Comments Basophils # (test code 0.1 See_Comment [Aut omated message] The = Basophils #) system which generated this result tra nsmitted reference range : <=0.2. The reference r yessenia was not used to int erpret this result as normal/abnormal . [facility] SouthMnppqigSKJRIGXVAT3618-35-86 00:05:00 Test Item Value Reference Range Interpretation Comments Eosinophils # (test code 1.1 See_Comment [A utomated message] The = Eosinophils #) system whic h generated this result tra nsmitted reference range : <=0.5. The reference r yessenia was not used to int erpret this result as normal/abnormal . [facility] SouthHmtbrbcCEQIGIGJBY5271-69-22 00:05:00 Test Item Value Reference Range Interpretation Comments Monocytes # (test code 0.5 See_Comment [Aut omated message] The = Monocytes #) system which generated this result tra nsmitted reference range : <=0.8. The reference r yessenia was not used to int erpret this result as normal/abnormal . [facility] SouthBbolzwjKGJYSJZCZC1636-78-67 00:05:00 Test Item Value Reference Range Interpretation Comments Lymphocytes # (test code = Lymphocytes 2.2 1.0-5.5 #) [facility] [id number] 00:05:00 Test Item Value Reference Range Interpretation Comments Neutrophils # (test code = Neutrophils 7.7 1.5-8.1 #) [facility] SouthZqyocsaALDEELFCEX7801-97-81 00:05:00 Test Item Value Reference Range Interpretation Comments Basophils (test code = 0.7 See_Comment [Aut omated message] The Basophils) system which ge nerated this result tra nsmitted reference range : <=1.0. The reference r yessenia was not used to int erpret this result as normal/abnormal . [facility] SouthZgrokveEZMJVQJPFT2518-85-30 00:05:00 Test Item Value Reference Range Interpretation Comments Eosinophils (test code = 9.2 See_Comment [A utomated message] The Eosinophils) system which ge nerated this result tra nsmitted reference range : <=4.0. The reference r yessenia was not used to int erpret this result as normal/abnormal . [facility] SouthXpvlgyjLDBVEPEKJS8143-75-98 00:05:00 Test Item Value Reference Range Interpretation Comments MPV (test code = MPV) 8.5 7.4-10.4 [facility] SouthKuobghtBUXYSHWPHG9656-99-22 00:05:00 Test Item Value Reference Range Interpretation Comments Platelet (test code = Platelet) 362 133-450 [facility] SouthEvwytltXGYEGRYDMI4599-06-21 00:05:00 Test Item Value Reference Range Interpretation Comments RDW (test code = RDW) 14.7 11.5-14.5 [facility] SouthBaspsjwUJXPNKNMFD0582-95-61 00:05:00 Test Item Value Reference Range Interpretation Comments MCHC (test code = MCHC) 33.1 32.0-36.0 [facility] SouthIbqdcxsBXEFGZQZLR9674-23-87 00:05:00 Test Item Value Reference Range Interpretation Comments MCV (test code = MCV) 87.6 80.0-98.0 [facility] SouthKggxdlzSQQRFGZZXP4967-99-24 00:05:00 Test Item Value Reference Range Interpretation Comments Hgb (test code = Hgb) 12.5 12.0-16.0 [facility] SouthFsqwyweZKMBRSERPI3401-06-06 00:05:00 Test Item Value Reference Range Interpretation Comments MCH (test code = MCH) 29.0 pg 27.0-31.0 [facility] SouthJtblgifHRTCQQZXWB7975-51-05 00:05:00 Test Item Value Reference Range Interpretation Comments Hct (test code = Hct) 37.7 36.0-48.0 [facility] SouthRxlnuwdIVEZFAJFVY5527-42-70 00:05:00 Test Item Value Reference Range Interpretation Comments RBC (test code = RBC) 4.31 4.20-5.40 [facility] SouthQqxndfaROGGSVMKVR9045-49-27 00:05:00 Test Item Value Reference Range Interpretation Comments WBC (test code = WBC) 11.5 3.7-10.4 [facility] AND [id number] 21:36:00 Test Item Value Reference Range Interpretation Comments UA Leuk Est (test Negative (03/17/18 3:36 code = UA Leuk Est) PM) [facility] AND [id number] 21:36:00 Test Item Value Reference Range Interpretation Comments UA Nitrite (test code Negative (03/17/18 3:36 = UA Nitrite) PM) [facility] AND [id number] 21:36:00 Test Item Value Reference Range Interpretation Comments UA Sq Epi (test code = UA Sq Epi) Many /LPF [facility] AND [id number] 21:36:00 Test Item Value Reference Range Interpretation Comments UA WBC (test code = 1 See_Comment [Automa susanne message] The UA WBC) system which ge nerated this result transmit susanne reference range : <=5. The reference range was not used to interpr et this result as ingrid l/abnormal. [facility] AND [id number] 21:36:00 Test Item Value Reference Range Interpretation Comments UA Bacteria (test code = UA Occasional /HPF Bacteria) [facility] AND [id number] 21:36:00 Test Item Value Reference Range Interpretation Comments UA RBC (test code = 3 See_Comment [Automa susanne message] The UA RBC) system which ge nerated this result transmit susanne reference range : <=2. The reference range was not used to interpr et this result as ingrid l/abnormal. [facility] AND [id number] 21:36:00 Test Item Value Reference Range Interpretation Comments UA Hyal Cast (test 4 See_Comment [Automat ed message] The code = UA Hyal Cast) system which generated this result transmit susanne reference range : <=2. The reference range was not used to interpr et this result as ingrid l/abnormal. [facility] AND [id number] 21:36:00 Test Item Value Reference Range Interpretation Comments UA Mucus (test code = UA Mucus) Moderate /LPF [facility] [id number] 21:36:00 Test Item Value Reference Range Interpretation Comments UA Glucose (test code = UA Negative mg/dL Glucose) [facility] [id number] 21:36:00 Test Item Value Reference Range Interpretation Comments UA Bili (test code = Negative *NA*(03/17/18 UA Bili) 3:36 PM) [facility] [id number] 21:36:00 Test Item Value Reference Range Interpretation Comments UA Protein (test code = UA Protein) 20 mg/dL [facility] [id number] 21:36:00 Test Item Value Reference Range Interpretation Comments UA Blood (test code = Negative (03/17/18 3:36 UA Blood) PM) [facility] [id number] 21:36:00 Test Item Value Reference Range Interpretation Comments UA Urobilinogen (test code = UA 2.0 0.1-1.0 Urobilinogen) [facility] [id number] 21:36:00 Test Item Value Reference Range Interpretation Comments UA Ketones (test code = UA Trace mg/dL Ketones) [facility] [id number] 21:36:00 Test Item Value Reference Range Interpretation Comments UA pH (test code = UA pH) 6.0 1 5.0-8.0 [facility] [id number] 21:36:00 Test Item Value Reference Range Interpretation Comments UA Turbidity (test code = Clear (03/17/18 3:36 UA Turbidity) PM) [facility] [id number] 21:36:00 Test Item Value Reference Range Interpretation Comments UA Spec Grav (test code = UA Spec 1.026 1 Grav) [facility] [id number] 21:36:00 Test Item Value Reference Range Interpretation Comments UA Color (test code = Dark Yellow UA Color) *NA*(03/17/18 3:36 PM) [facility]annCARDIAC [id number] 18:00:00 Test Item Value Reference Range Interpretation Comments Troponin-I (test code no gt See_Comment [Auto mated message] The = Troponin-I) system which g enerated this result transmit susanne reference range : <=0.40. The reference r yessenia was not used to interpr et this result as ingrid l/abnormal. [facility] [id number] 15:29:00 Test Item Value Reference Range Interpretation Comments C difficile DNA (test Negative (10/12/17 code = C difficile DNA) 10:29 AM) [facility]2018-06-26 14:55:00 Test Item Value Reference Range Interpretation Comments eGFR (test code = eGFR) 80 [facility]2018-06-26 14:55:00 Test Item Value Reference Range Interpretation Comments Calcium Lvl (test code = Calcium Lvl) 8.1 8.5-10.5 [facility]2018-06-26 14:55:00 Test Item Value Reference Range Interpretation Comments AGAP (test code = AGAP) 7.7 10.0-20.0 [facility]2018-06-26 14:55:00 Test Item Value Reference Range Interpretation Comments Sodium Lvl (test code = Sodium Lvl) 148 135-145 [facility]2018-06-26 14:55:00 Test Item Value Reference Range Interpretation Comments Creatinine Lvl (test code = Creatinine 0.93 0.50-1.40 Lvl) [facility]2018-06-26 14:55:00 Test Item Value Reference Range Interpretation Comments BUN (test code = BUN) 7 7-22 [facility]2018-06-26 14:55:00 Test Item Value Reference Range Interpretation Comments CO2 (test code = CO2) 21 24-32 [facility]2018-06-26 14:55:00 Test Item Value Reference Range Interpretation Comments Potassium Lvl (test code = Potassium 3.7 3.5-5.1 Lvl) [facility]2018-06-26 14:55:00 Test Item Value Reference Range Interpretation Comments Chloride Lvl (test code = Chloride Lvl) 123 95-109 [facility]2018-06-26 14:55:00 Test Item Value Reference Range Interpretation Comments Glucose Lvl (test code = Glucose Lvl) 83 70-99 [facility]NgjvluoYLACELSVWU7187-82-71 14:55:00 Test Item Value Reference Range Interpretation Comments WBC (test code = WBC) 10.8 3.7-10.4 [facility] SouthUmvttesPSBLARYHHJ2316-86-79 14:55:00 Test Item Value Reference Range Interpretation Comments RBC (test code = RBC) 3.75 4.20-5.40 [facility] SouthSxigstjFJUWJGKTLX5439-45-59 14:55:00 Test Item Value Reference Range Interpretation Comments Hgb (test code = Hgb) 11.4 12.0-16.0 [facility] SouthTsvvxatRVQSCSQMNF3135-28-63 14:55:00 Test Item Value Reference Range Interpretation Comments MPV (test code = MPV) 8.4 7.4-10.4 [facility] SouthQzvyyouGLIHSERMZK8956-30-17 14:55:00 Test Item Value Reference Range Interpretation Comments Hct (test code = Hct) 34.7 36.0-48.0 [facility] SouthJdvqwciOVQMQVFJTA9609-01-36 14:55:00 Test Item Value Reference Range Interpretation Comments MCV (test code = MCV) 92.5 80.0-98.0 [facility] SouthWgozvndWSBBZFHDRM9833-35-49 14:55:00 Test Item Value Reference Range Interpretation Comments MCHC (test code = MCHC) 32.8 32.0-36.0 [facility] SouthPlchvswKVAMEXKDOV6887-48-43 14:55:00 Test Item Value Reference Range Interpretation Comments MCH (test code = MCH) 30.4 pg 27.0-31.0 [facility] SouthTffkujsPHAMBXKJMM9199-59-70 14:55:00 Test Item Value Reference Range Interpretation Comments RDW (test code = RDW) 14.5 11.5-14.5 [facility] SouthSmclwyiSJQYLASMVM7156-16-35 14:55:00 Test Item Value Reference Range Interpretation Comments Platelet (test code = Platelet) 242 716-450 [facility] SouthNuhhlsuYQUBJYRHSN4834-90-47 14:55:00 Test Item Value Reference Range Interpretation Comments Lymphocytes # (test code = Lymphocytes 1.0 1.0-5.5 #) [facility] SouthEtyciiuTTIUAUEBTG2755-22-16 14:55:00 Test Item Value Reference Range Interpretation Comments Segs-Bands # (test code = Segs-Bands #) 8.6 1.5-8.1 [facility] SouthYvzszjsQNAWPIJDQO0333-21-31 14:55:00 Test Item Value Reference Range Interpretation Comments Monocytes # (test code 0.3 See_Comment [Aut omated message] The = Monocytes #) system which generated this result tra nsmitted reference range : <=0.8. The reference r yessenia was not used to int erpret this result as normal/abnormal . [facility] SouthJoyrshgPIAORNRDBA5440-78-72 14:55:00 Test Item Value Reference Range Interpretation Comments Basophils # (test code 0.1 See_Comment [Aut omated message] The = Basophils #) system which generated this result tra nsmitted reference range : <=0.2. The reference r yessenia was not used to int erpret this result as normal/abnormal . [facility] SouthObuxiakCQDTHDPDSK3665-98-91 14:55:00 Test Item Value Reference Range Interpretation Comments Eosinophils # (test code 0.8 See_Comment [A utomated message] The = Eosinophils #) system whic h generated this result tra nsmitted reference range : <=0.5. The reference r yessenia was not used to int erpret this result as normal/abnormal . [facility] SouthQtrtzkoNKXNMDPVIL9748-88-14 14:55:00 Test Item Value Reference Range Interpretation Comments Lymphocytes (test code = Lymphocytes) 9.4 20.0-40.0 [facility] SouthGvjerutETMJPZXZUE2282-15-03 14:55:00 Test Item Value Reference Range Interpretation Comments Monocytes (test code = Monocytes) 3.2 2.0-12.0 [facility] SouthPyjsiicJWXRCJVSIV3680-71-03 14:55:00 Test Item Value Reference Range Interpretation Comments Eosinophils (test code = 7.3 See_Comment [A utomated message] The Eosinophils) system which ge nerated this result tra nsmitted reference range : <=4.0. The reference r yessenia was not used to int erpret this result as normal/abnormal . [facility] SouthMrqoftzWDIMNPKIOS2607-90-39 14:55:00 Test Item Value Reference Range Interpretation Comments Basophils (test code = 0.7 See_Comment [Aut omated message] The Basophils) system which ge nerated this result tra nsmitted reference range : <=1.0. The reference r yessenia was not used to int erpret this result as normal/abnormal . [facility] SouthBddapkwXCBNDZYELT3421-07-81 14:55:00 Test Item Value Reference Range Interpretation Comments Segs (test code = Segs) 79.4 45.0-75.0 [facility]TppesjrQATFZDFIKA4054-85-39 01:47:00 Test Item Value Reference Range Interpretation Comments HIV Ag/Ab 4th Gen Negative *NA*(10/11/17 (test code = HIV 8:47 PM) Ag/Ab 4th Gen) [facility] [id number] 21:36:00 Test Item Value Reference Range Interpretation Comments UDS Note (test code = See Note (10/11/17 4:36 UDS Note) PM) [facility] [id number] 21:36:00 Test Item Value Reference Range Interpretation Comments U Phencyc Scr (test Negative *NA*(10/11/17 code = U Phencyc Scr) 4:36 PM) [facility] [id number] 21:36:00 Test Item Value Reference Range Interpretation Comments U Benzodia Scr (test Positive *ABN*(10/11/17 code = U Benzodia Scr) 4:36 PM) [facility] [id number] 21:36:00 Test Item Value Reference Range Interpretation Comments U Sandie Scr (test code Negative *NA*(10/11/17 = U Sandie Scr) 4:36 PM) [facility] [id number] 21:36:00 Test Item Value Reference Range Interpretation Comments U Amph Scr (test code Negative *NA*(10/11/17 = U Amph Scr) 4:36 PM) [facility] [id number] 21:36:00 Test Item Value Reference Range Interpretation Comments U Opiate Scr (test Positive *ABN*(10/11/17 code = U Opiate Scr) 4:36 PM) [facility] [id number] 21:36:00 Test Item Value Reference Range Interpretation Comments U Cocaine Scr (test Negative *NA*(10/11/17 code = U Cocaine Scr) 4:36 PM) [facility] [id number] 21:36:00 Test Item Value Reference Range Interpretation Comments U Cannab Scr (test Positive *ABN*(10/11/17 code = U Cannab Scr) 4:36 PM) [facility] [id number] 21:36:00 Test Item Value Reference Range Interpretation Comments UA Spec Grav (test >=1.050 *ABN*(10/11/17 code = UA Spec Grav) 4:36 PM) [facility] [id number] 21:36:00 Test Item Value Reference Range Interpretation Comments UA Leuk Est (test Negative (10/11/17 4:36 code = UA Leuk Est) PM) [facility] AND [id number] 21:36:00 Test Item Value Reference Range Interpretation Comments UA Sq Epi (test code = UA Sq Epi) Many /LPF [facility] AND [id number] 21:36:00 Test Item Value Reference Range Interpretation Comments UA WBC (test code = 2 See_Comment [Automa susanne message] The UA WBC) system which ge nerated this result transmit susanne reference range : <=5. The reference range was not used to interpr et this result as ingrid l/abnormal. [facility] AND [id number] 21:36:00 Test Item Value Reference Range Interpretation Comments UA Nitrite (test code Negative (10/11/17 4:36 = UA Nitrite) PM) [facility] AND [id number] 21:36:00 Test Item Value Reference Range Interpretation Comments UA Mucus (test code = UA Mucus) Few /LPF [facility] AND [id number] 21:36:00 Test Item Value Reference Range Interpretation Comments UA RBC (test code = 2 See_Comment [Automa susanne message] The UA RBC) system which ge nerated this result transmit susanne reference range : <=2. The reference range was not used to interpr et this result as ingrid l/abnormal. [facility] AND [id number] 21:36:00 Test Item Value Reference Range Interpretation Comments UA pH (test code = UA pH) 6.0 1 5.0-8.0 [facility] AND [id number] 21:36:00 Test Item Value Reference Range Interpretation Comments UA Protein (test code = UA Protein) 30 mg/dL [facility] AND [id number] 21:36:00 Test Item Value Reference Range Interpretation Comments UA Turbidity (test code Slight *ABN*(10/11/17 = UA Turbidity) 4:36 PM) [facility] AND [id number] 21:36:00 Test Item Value Reference Range Interpretation Comments UA Ketones (test code = UA Trace mg/dL Ketones) [facility] AND [id number] 21:36:00 Test Item Value Reference Range Interpretation Comments UA Blood (test code = Negative (10/11/17 4:36 UA Blood) PM) [facility] AND [id number] 21:36:00 Test Item Value Reference Range Interpretation Comments UA Glucose (test code = UA Negative mg/dL Glucose) [facility] AND [id number] 21:36:00 Test Item Value Reference Range Interpretation Comments UA Bili (test code = Negative *NA*(10/11/17 UA Bili) 4:36 PM) [facility] AND [id number] 21:36:00 Test Item Value Reference Range Interpretation Comments UA Color (test code = Red *ABN*(10/11/17 4:36 UA Color) PM) [facility] AND [id number] 21:36:00 Test Item Value Reference Range Interpretation Comments UA Urobilinogen (test code = UA 2.0 0.1-1.0 Urobilinogen) [facility] [id number] 21:36:00 Test Item Value Reference Range Interpretation Comments U Preg (test code = U Negative (10/11/17 4:36 Preg) PM) [facility] [id number] 21:36:00 Test Item Value Reference Range Interpretation Comments Culture: Urine (test <10,000 CFU/mL Skin code = Culture: Urine) [facility] [id number] 21:04:00 Test Item Value Reference Range Interpretation Comments Lipase Lvl (test code = Lipase Lvl) 377 73-393 [facility] [id number] 21:04:00 Test Item Value Reference Range Interpretation Comments Procalcitonin Lvl (test 4.79 See_Comment [Au tomated message] code = Procalcitonin Lvl) Th e system which generated this result transmitted ref erence range: <=0.10. The reference range was not used to interpr et this result as normal/abnormal . [id number] 21:04:00 Test Item Value Reference Range Interpretation Comments AGAP (test code = AGAP) 10.9 10.0-20.0 [id number] 21:04:00 Test Item Value Reference Range Interpretation Comments B/C Ratio (test code = B/C Ratio) 7 1 6-25 [id number] 21:04:00 Test Item Value Reference Range Interpretation Comments Globulin (test code = Globulin) 3.7 2.7-4.2 [facility] Hospital[id number] 21:04:00 Test Item Value Reference Range Interpretation Comments A/G Ratio (test code = A/G Ratio) 1.0 1 0.7-1.6 [facility] HospitalNyoklggXMTLVWJHSGZG1714-51-52 21:04:00 Test Item Value Reference Range Interpretation Comments eGFR (test code = eGFR) 79 [facility] Hos[id number] 21:04:00 Test Item Value Reference Range Interpretation Comments Albumin Lvl (test code = Albumin Lvl) 3.6 3.5-5.0 [facility] Hospi[id number] 21:04:00 Test Item Value Reference Range Interpretation Comments Bili Total (test code = Bili Total) 0.6 0.2-1.3 [facility] HospitalCiqxguyWYLICWQGHSJV3690-07-00 21:04:00 Test Item Value Reference Range Interpretation Comments Alk Phos (test code = Alk Phos) 81 39-136 [facility] HospitalNjthehnBUVYBNHYMPQZ2252-94-64 21:04:00 Test Item Value Reference Range Interpretation Comments AST (test code = AST) 19 See_Comment [Auto mated message] The system which ge nerated this result transmit susanne reference range : <=37. The reference range was not used to interpr et this result as ingrid l/abnormal. [facility] Hospital[id number] 21:04:00 Test Item Value Reference Range Interpretation Comments Total Protein (test code = Total 7.3 6.4-8.4 Protein) [facility] Hospi[id number] 21:04:00 Test Item Value Reference Range Interpretation Comments ALT (test code = ALT) 14 See_Comment [Auto mated message] The system which ge nerated this result transmit susanne reference range : <=65. The reference range was not used to interpr et this result as ingrid l/abnormal. [facility] HospitalRpxrwcxSIVCIPQUSBSH6983-18-80 21:04:00 Test Item Value Reference Range Interpretation Comments Calcium Lvl (test code = Calcium Lvl) 8.9 8.5-10.5 [facility] Hos[id number] 21:04:00 Test Item Value Reference Range Interpretation Comments Glucose Lvl (test code = Glucose Lvl) 93 70-99 [facility] HospitalUfrencjSHCRLFRFAWOY0177-97-47 21:04:00 Test Item Value Reference Range Interpretation Comments CO2 (test code = CO2) 24 24-32 [facility] HospitalIqhakvbCKPDDWYIJWDK9022-67-40 21:04:00 Test Item Value Reference Range Interpretation Comments Potassium Lvl (test code = Potassium 3.9 3.5-5.1 Lvl) [facility] HospitalNpu[id number] 21:04:00 Test Item Value Reference Range Interpretation Comments Chloride Lvl (test code = Chloride Lvl) 111 95-109 [facility] HospitalPomeiotSRWUWHFMMFEY2476-70-94 21:04:00 Test Item Value Reference Range Interpretation Comments BUN (test code = BUN) 7 7-22 [facility] HospitalWwznjgbRIDMLUCFTGOB5192-10-08 21:04:00 Test Item Value Reference Range Interpretation Comments Creatinine Lvl (test code = Creatinine 0.94 0.50-1.40 Lvl) [facility] HospitalObshzycSHOHQZUSFJCF6523-64-48 21:04:00 Test Item Value Reference Range Interpretation Comments Sodium Lvl (test code = Sodium Lvl) 142 135-145 [facility] SouthWukokwcCPBPYTIUXM1167-14-23 21:04:00 Test Item Value Reference Range Interpretation Comments Lymphocytes # (test code = Lymphocytes 1.1 1.0-5.5 #) [facility] SouthCwyekbyCJKXZWIEGF0413-93-03 21:04:00 Test Item Value Reference Range Interpretation Comments Monocytes # (test code 0.7 See_Comment [Aut omated message] The = Monocytes #) system which generated this result tra nsmitted reference range : <=0.8. The reference r yessenia was not used to int erpret this result as normal/abnormal . [facility] SouthSkjmlwwMSQXZVWUQC5176-80-65 21:04:00 Test Item Value Reference Range Interpretation Comments Basophils # (test code 0.1 See_Comment [Aut omated message] The = Basophils #) system which generated this result tra nsmitted reference range : <=0.2. The reference r yessenia was not used to int erpret this result as normal/abnormal . [facility] SouthAqcixicWTQKWSCFBG2348-43-83 21:04:00 Test Item Value Reference Range Interpretation Comments Eosinophils # (test code 0.4 See_Comment [A utomated message] The = Eosinophils #) system whic h generated this result tra nsmitted reference range : <=0.5. The reference r yessenia was not used to int erpret this result as normal/abnormal . [facility] SouthYjllrlgXULJIEQQJM4948-66-83 21:04:00 Test Item Value Reference Range Interpretation Comments Basophils (test code = 0.5 See_Comment [Aut omated message] The Basophils) system which ge nerated this result tra nsmitted reference range : <=1.0. The reference r yessenia was not used to int erpret this result as normal/abnormal . [facility] SouthQiqwkrwPYCRUTWKWA5011-00-99 21:04:00 Test Item Value Reference Range Interpretation Comments Segs-Bands # (test code = Segs-Bands #) 18.1 1.5-8.1 [facility] SouthYatftraILDVNWJTCO4287-55-47 21:04:00 Test Item Value Reference Range Interpretation Comments Lymphocytes (test code = Lymphocytes) 5.6 20.0-40.0 [facility] SouthQxwyayuFZLDFFDOVU6565-72-36 21:04:00 Test Item Value Reference Range Interpretation Comments Segs (test code = Segs) 88.7 45.0-75.0 [facility] SouthZfgypwwBAVEPOJMFA8920-88-88 21:04:00 Test Item Value Reference Range Interpretation Comments Monocytes (test code = Monocytes) 3.4 2.0-12.0 [facility] SouthOrpfijlKNPWSJXUBR5430-23-93 21:04:00 Test Item Value Reference Range Interpretation Comments Eosinophils (test code = 1.8 See_Comment [A utomated message] The Eosinophils) system which ge nerated this result tra nsmitted reference range : <=4.0. The reference r yessenia was not used to int erpret this result as normal/abnormal . [facility] SouthEloaeehDXMQDSMZWJ3412-84-57 21:04:00 Test Item Value Reference Range Interpretation Comments MCV (test code = MCV) 92.1 80.0-98.0 [facility] SouthMztnqrzDHJZZLCQNU8670-51-66 21:04:00 Test Item Value Reference Range Interpretation Comments MCH (test code = MCH) 29.7 pg 27.0-31.0 [facility] SouthVxkyunzFLGXXWKCHK5008-22-88 21:04:00 Test Item Value Reference Range Interpretation Comments Hgb (test code = Hgb) 13.1 12.0-16.0 [facility]YjstufqRUCOFABZAN7352-77-51 21:04:00 Test Item Value Reference Range Interpretation Comments Hct (test code = Hct) 40.5 36.0-48.0 [facility]QwqzslmDRNAGJEXGG5509-85-53 21:04:00 Test Item Value Reference Range Interpretation Comments RBC (test code = RBC) 4.40 4.20-5.40 [facility] CenterVxgsdmhNXZDYYRHBX1432-48-10 21:04:00 Test Item Value Reference Range Interpretation Comments MCHC (test code = MCHC) 32.3 32.0-36.0 [facility] CenterQbzhdhqNBMLDRRRME5951-41-05 21:04:00 Test Item Value Reference Range Interpretation Comments Platelet (test code = Platelet) 287 133-450 [facility] HospitalNjidfdbWGOZXELTCX0234-93-44 21:04:00 Test Item Value Reference Range Interpretation Comments RDW (test code = RDW) 14.3 11.5-14.5 [facility] HospitalGxqwyofHDGMLVYNOJ9312-56-22 21:04:00 Test Item Value Reference Range Interpretation Comments MPV (test code = MPV) 8.5 7.4-10.4 [facility] CenterCthbqaqDKSTIRVPJW0236-46-15 21:04:00 Test Item Value Reference Range Interpretation Comments WBC (test code = WBC) 20.4 3.7-10.4 [facility] CenterCHEM [id number] 17:34:00 Test Item Value Reference Range Interpretation Comments Lactic Acid Lvl (test code = Lactic 1.4 0.5-2.2 Acid Lvl) [facility] CenterThyrotropin [Units/volume] in Serum or [id number] 00:00:00 Test Item Value Reference Range Interpretation Comments TSH (test code = TSH) 1.8820 uIU/mL 0.3500-4.9400 [facility] - Serum or Plasma [...] (test code = 7.0 calc anion gap) [facility] W Auto Differential panel - [id number] 00:00:00 Test Item Value Reference Range Interpretation [...] (test code = baso#) 0.050 x10*3/?L 0.001-0.080 [facility]
[2021-06-30] MEDS ORDERED: LORazepam 2 MG/ML VIAL ONE (10:38)
[2021-06-30] MEDS ORDERED: ZIPRASIDONE MESYLA 20 MG/VIAL IM ONE (10:39)
[2021-06-30] MEDS ORDERED: DIPHENHYDRAMINE 50 MG/ML VIAL ONE (10:56)
[2021-06-30 12:13] LABS: Protime INR 0.97
[2021-06-30 12:19] LABS: ALT/SGPT 21 U/L (12-78); Albumin 3.9 g/dL (3.4-5.0); Alkaline Phosphatase 73 U/L (45-117); BUN Blood Urea Nitrogen 12 mg/dL (7-18); Bicarbonate 23 mmol/L (21-32); Bilirubin Total 0.4 mg/dL (0.2-1.0); Glucose Level 90 mg/dL (74-106); Protein, Total 7.2 g/dL (6.4-8.2); Sodium Level 138 mmol/L (136-145)
[2021-06-30 12:20] LABS: AST/SGOT 16 U/L (15-37); Bilirubin Direct < 0.1 mg/dL (0-0.2); Potassium 3.9 mmol/L (3.5-5.1)
[2021-06-30 14:03] LABS: Urine Blood Negative (Negative); Urine Glucose Negative (Negative); Urine Protein Negative (Negative)
[2021-06-30 14:11] LABS: Absolute Lymphocytes (CBC) 1.5 K/uL (0.7-4.9); Hematocrit 39.9 % (36.0-45.0); Lymphocytes % 14.3 % (15.3-44.8); MPV 7.9 fL (7.6-11.3); RBC Red Blood Cell Count 4.44 M/uL (3.86-4.86)
[2021-06-30] MEDS ORDERED: DIAZEPAM 5 MG TABLET ONE (14:14)
[2021-06-30 14:22] LABS: Barbiturates NEGATIVE (NEGATIVE); Benzodiazepines NEGATIVE (NEGATIVE); Cocaine NEGATIVE (NEGATIVE); METHAMPHETAM NEGATIVE (NEGATIVE); Methadone NEGATIVE (NEGATIVE); Opiates NEGATIVE (NEGATIVE); Phencyclidine NEGATIVE (NEGATIVE); THC Cannibis POSITIVE (NEGATIVE)
--- NOTE | 2021-06-30 15:37 | EDPHYS ---
Physician Documentation [facility] Name: Areli Gómez Age: 35 yrs Sex: Female : 1985 Arrival Date: 06/30/2021 Time: 09:55 Bed 14 Private MD: ED Physician Jose Laurent HPI: 06/30 10:08 This 35 yrs old Female presents to ER via Law Enforcement with complaints of Suicidal pm1 Ideation. 11:28 The patient presents to the emergency department with homicidal ideation, the patient pm1 has harmed or wants to harm their spouse, Suicidal ideation per police officers. Onset: The symptoms/episode began/occurred Per spouse, patient with history of borderline personality and schizophrenia that has not been treated well for the past 8 years. Patient without a psychiatrist and has been sporadically taking medications in the past 8 years without improvement. Patient last time she took medications for her psychiatric issues was 2 years ago. Past psychiatric history: Prior diagnosis: schizophrenia, borderline disorder, Psychiatric medications include: none, Primary psychiatric physician: the patient does not have a primary psychiatric physician. Associated signs and symptoms: The patient has no apparent associated signs or symptoms. Severity of symptoms: in the emergency department the symptoms are worse. The patient has experienced similar episodes in the past, chronically, Spouse reports she is typically able to calm her down and talk her of her thoughts, including homicidal ideation and threats to her. The patient has not recently seen a physician. Historical: - PMHx: 12:46 Asthma; Chronic obstructive lung disease; Schizophrenia; cb5 - PSHx: 12:46 Facial tumor removal; hysterectomy; left ankle repair; cb5 - Immunization history:: Adult Immunizations up to date. - Social history:: Smoking status: . ROS: 11:28 Constitutional: Negative for fever, chills, and weight loss, Cardiovascular: Negative pm1 for chest pain, palpitations, and edema, Respiratory: Negative for shortness of breath, cough, wheezing, and pleuritic chest pain, Abdomen/GI: Negative for abdominal pain, nausea, vomiting, diarrhea, and constipation, MS/Extremity: Negative for injury and deformity, Skin: Negative for injury, rash, and discoloration, Neuro: Negative for headache, weakness, numbness, tingling, and seizure. 11:28 Psych: Positive for homicidal ideation, suicidal ideation. 11:28 All other systems are negative. Exam: 11:28 Constitutional: This is a well developed, well nourished patient who is awake, alert, pm1 and in no acute distress. Head/Face: Normocephalic, atraumatic. 11:28 Back: No spinal tenderness. No costovertebral tenderness. Full range of motion. Skin: Warm, dry with normal turgor. Normal color with no rashes, no lesions, and no evidence of cellulitis. MS/ Extremity: Pulses equal, no cyanosis. Neurovascular intact. Full, normal range of motion. 11:28 Cardiovascular: Exam negative for acute changes, Rate: normal, Rhythm: regular, Pulses: no pulse deficits are appreciated, Edema: is not appreciated. 11:28 Respiratory: Exam negative for acute changes, respiratory distress, shortness of breath, Breath sounds: are clear throughout. 11:28 Abdomen/GI: Inspection: obese Palpation: abdomen is soft and non-tender, in all quadrants. 11:28 Neuro: Exam negative for acute changes, Orientation: to person, place, time, situation, Motor: moves all fours. 11:28 Psych: Behavior/mood is aggressive, angry, Affect is animated, Patient having thoughts of homicide. Homicidal thoughts directed towards spouse Vital Signs: 12:15 BP 138 / 77; Pulse 88; Resp 16; Temp 98.6; Pulse Ox 99% ; Pain 0/10; cb5 15:15 BP 128 / 74; Pulse 80; Resp 16; Temp 98.6; Pulse Ox 99% ; Pain 0/10; cb5 17:00 BP 131 / 73; Pulse 78; Resp 16; Pulse Ox 99% ; Pain 0/10; cb5 MDM: 10:08 Patient medically screened. pm1 10:50 ED course: Patient's report ativan makes the patient more agitated and aggressive. pm1 11:25 Data reviewed: vital signs. ED course: Patient is crying and unwilling to communicate. pm1 Attempted to ask her if she would like to see her spouse to be calmed down and she refuses to respond. 11:43 ED course: Patient is now calm and cooperative with IV attempts by technology professional. pm1 15:35 Data interpreted: Pulse oximetry: on room air is 99 %. Interpretation: normal. pm1 Counseling: I had a detailed discussion with the patient and/or guardian regarding: the historical points, exam findings, and any diagnostic results supporting the discharge/admit diagnosis, lab results, the need to transfer to another facility, [facility] does not immediately have the required specialist. 16:01 Physician consultation: Psychiatrist was contacted at 16:02, regarding regarding pm1 transfer, patient's condition, and will see patient. 06/30 10:00 Order name: Acetaminophen; Complete Time: 12:22 pm06/30 10:00 Order name: Basic Metabolic Panel; Complete Time: 12:22 pm06/30 10:00 Order name: CBC with Diff; Complete Time: 14:37 pm06/30 10:00 Order name: ETOH Level; Complete Time: 12:44 pm06/30 10:00 Order name: Hepatic Function; Complete Time: 12:22 pm06/30 10:00 Order name: PT-INR; Complete Time: 12:22 pm06/30 10:00 Order name: Ptt, Activated; Complete Time: 12:22 pm06/30 10:00 Order name: Salicylate; Complete Time: 12:27 pm06/30 10:00 Order name: Urine Drug Screen; Complete Time: 14:37 pm06/30 11:17 Order name: COVID-19 SARS RT PCR (Document "Date of Onset" if Symptomatic) bd 06/30 11:17 Order name: SARS-COV-2 RT PCR; Complete Time: 12:44 EDMS 06/30 14:03 Order name: Urine Dipstick-Ancillary; Complete Time: 14:04 EDMS 06/30 10:00 Order name: EKG; Complete Time: 10:00 pm06/30 10:00 Order name: EKG - Nurse/Tech; Complete Time: 12:33 pm06/30 10:00 Order name: IV Saline Lock; Complete Time: 12:33 pm06/30 10:00 Order name: Labs collected and sent; Complete Time: 12:33 pm06/30 10:00 Order name: Suicide Precautions; Complete Time: 10:51 pm06/30 10:00 Order name: Suicide Screening ([place]); Complete Time: 10:51 pm06/30 10:00 Order name: Urine Dipstick-Ancillary (obtain specimen); Complete Time: 14:04 pm06/30 12:09 Order name: Labs - recollect needed: recollect lavender top; Complete Time: 14:04 bd 06/30 12:37 Order name: Diet Finger Food; Complete Time: 12:38 bd Administered Medications: 10:49 CANCELLED (Physician Discretion): Ativan (LORazepam) 1 mg IM once pm1 10:51 Drug: Geodon (ziprasidone) 20 mg Route: IM; Site: right deltoid; cb5 19:56 Follow up: Response: No adverse reaction lg3 11:00 Drug: Benadryl (diphenhydrAMINE) 25 mg Route: IM; Site: right deltoid; cb5 19:56 Follow up: Response: No adverse reaction lg3 14:11 CANCELLED (Physician Discretion): Valium (diazepam) 2 mg PO once pm1 14:16 Drug: Valium (diazepam) 2.5 mg Route: PO; cb5 19:55 Follow up: Response: No adverse reaction lg3 Disposition: 19:39 Co-signature as Attending Physician, Jose Laurent MD I agree with the assessment and kdr plan of care. Disposition Summary: 06/30/21 15:36 Transfer Ordered Transfer Location: Psych Facility pm1 Reason: Specialty pm1 Condition: Stable pm1 Problem: new pm1 Symptoms: are unchanged pm1 Accepting Physician: (06/30/21 20:10) lg3 Diagnosis - Homicidal and suicidal ideations pm1 Forms: - Medication Reconciliation Form pm1 - SBAR form pm1 Signatures: Dispatcher [employer] EDMS Tierney Mcdonough Kevin, MD MD kdr Marinas, Patrick, BEHAVIORAL THERAPY COORDINATOR BEHAVIORAL THERAPY COORDINATOR pm1 Katherine Quiles RN RN lg3 Reyna Mendoza RN RN cb5 Corrections: (The following items were deleted from the chart) 10:49 10:23 Ativan (LORazepam) 1 mg IM once ordered. pm1 pm1 14:07 10:00 Urine Test ordered. pm1 dh3 14:11 13:56 Valium (diazepam) 2 mg PO once ordered. pm1 pm1 20:10 15:36 pm1 lg3
--- NOTE | 2021-06-30 15:37 | ER ---
Nurse's Notes [facility] Name: Areli Gómez Age: 35 yrs Sex: Female : 1985 Arrival Date: 06/30/2021 Time: 09:55 Bed 14 Private MD: Diagnosis: Homicidal and suicidal ideations Presentation: 06/30 10:00 Chief complaint: Patient states: police brought patient to ER due to SI threats. cb5 Coronavirus screen: Client denies travel out of the [place] in the last 14 days. At this time, the client does not indicate any symptoms associated with coronavirus-19. Ebola Screen: Patient denies exposure to infectious person. Initial Sepsis Screen:. Risk Assessment: Do you want to hurt yourself or someone else? Patient reports desire/thoughts of hurting themselves or someone else. Provider notified. Other: pt states she wants to hurt herself and others. 10:00 Method Of Arrival: Law Enforcement: Franklin BOYD cb5 10:00 Acuity: HARRIET 2 cb5 19:54 Initial Sepsis Screen: Does the patient meet any 2 criteria? No. Patient's initial lg3 sepsis screen is negative. Does the patient have a suspected source of infection? No. Patient's initial sepsis screen is negative. Onset of symptoms is unknown. Triage Assessment: 10:26 General: Appears Behavior is agitated, anxious, combative, restless, uncooperative. cb5 Historical: - PMHx: 12:46 Asthma; Chronic obstructive lung disease; Schizophrenia; cb5 - PSHx: 12:46 Facial tumor removal; hysterectomy; left ankle repair; cb5 - Immunization history:: Adult Immunizations up to date. - Social history:: Smoking status: . Screenin:44 Abuse screen: pt threatened her . reports pt is HI/SI. Pt agreed. Nutritional cb5 screening: No deficits noted. Tuberculosis screening: No symptoms or risk factors identified. 12:46 Fall Risk None identified. cb5 Assessment: 10:00 General: Appears distressed, unkempt, Behavior is agitated, anxious, combative, cb5 restless, uncooperative. Pain: Denies pain. GI: No deficits noted. : No deficits noted. 10:10 General: Pt stated to nurse "I'm going to snap you in half, fuck you up". Police cb5 present, at bedside. . 10:30 Reassessment: Attempted to push curtains open, explained to pt that we need to make jl7 sure she is safe, pt stated "Suck my vidya." and forced the curtains open. Curtains removed from room at this time. 11:00 Reassessment: ZAHRAA brought pt in with JEWEL, pt uncooperative, [employer] called back to room jl7 to assist in medication administration. Pt's requesting to take pt's belongings with her instead of sending with security, pt refused to allow belongings to be sent with , belongings list completed, belongings bagged and sent with security. 11:30 General: Appears comfortable, Behavior is calm, cooperative, restless. Pain: Denies cb5 pain. Neuro: Level of Consciousness is awake, alert, Oriented to person, place. Cardiovascular: No deficits noted. Respiratory: Breath sounds are clear. EENT: No deficits noted. Derm: No deficits noted. 12:30 General: provided pt with sandwich and soda. lunch tray also ordered for patient safety cb5 tray.. 13:30 Reassessment: Patient and/or family updated on plan of care and expected duration. Pain cb5 level reassessed. 14:30 Reassessment: Patient and/or family updated on plan of care and expected duration. Pain cb5 level reassessed. 15:00 Reassessment: Patient and/or family updated on plan of care and expected duration. Pain cb5 level reassessed. pt asleep. 15:27 General: Dannielle carroll [facility] called for report. . cb5 16:00 Reassessment: Pts spouse, Trisha [phone] . cb5 16:00 Reassessment: Patient and/or family updated on plan of care and expected duration. Pain cb5 level reassessed. 17:00 Reassessment: Patient and/or family updated on plan of care and expected duration. Pain cb5 level reassessed. 17:20 General: pt is eating dinner, offered warm blanket and sprite. Pt has safety tray, and cb5 sprite in paper cup. 18:20 Reassessment: Patient and/or family updated on plan of care and expected duration. Pain cb5 level reassessed. Psych: 19:50 Teague Suicide Severity Screening: In the past month, have you wished you were lg3 or wished you could go to sleep and not wake up? Patient responds "yes." "In the past month, have you actually had any thoughts of killing yourself?" Patient responds "yes." "In your lifetime, have you ever done anything, started to do anything, or prepared to do anything to end your life?" Patient responds "yes.". Subjective: Patient's mood is irritable. Objective: Patient is cooperative, challenging. Interventions: Removed personal items and placed in bag. Patient placed in hospital gown. Searched person for dangerous items. Belonging list filled out. Safety Checks: Personal items have been removed. Pt has been placed in a hallway bed/chair. Door is open. Patient uses marijuana. Commitment: Patient will be an involuntary commitment. Vital Signs: 12:15 BP 138 / 77; Pulse 88; Resp 16; Temp 98.6; Pulse Ox 99% ; Pain 0/10; cb5 15:15 BP 128 / 74; Pulse 80; Resp 16; Temp 98.6; Pulse Ox 99% ; Pain 0/10; cb5 17:00 BP 131 / 73; Pulse 78; Resp 16; Pulse Ox 99% ; Pain 0/10; cb5 ED Course: 09:55 Patient arrived in ED. bd 09:59 Deejay Arnett NP is PHCP. pm1 09:59 Jose Laurent MD is Attending Physician. pm1 10:00 Patient pt uncooperative at this time, yelling profanity at staff, threatening to hit cb5 nurse. 10:24 Reyna Mendoza, RN is Primary Nurse. cb5 10:26 Triage completed. cb5 12:33 CBC with Diff Sent. cb5 12:33 ETOH Level Sent. cb5 13:40 faxed chart to [facility]. bd 13:58 Lab(s) recollected, by me, sent to lab. Urine collected: clean catch specimen, clear. dh3 Inserted saline lock: 22 gauge in right upper arm, using aseptic technique. Blood collected. 14:14 faxed chart to [facility]. bd 14:41 faxed chart to michele alexander, per pt request. bd 17:39 pt accepted in transfer to [facility] by dr Ames, admin bd approval given by Anyi Rahman. 19:05 Call light in reach. Side rails up X 1. Side rails up X2. cb5 19:05 Report given to Arvind Stout cb5 19:50 Arm band placed on left wrist. lg3 19:50 No provider procedures requiring assistance completed. IV discontinued, intact, lg3 bleeding controlled, No redness/swelling at site. Pressure dressing applied. 19:55 COVID-19 SARS RT PCR (Document "Date of Onset" if Symptomatic) Sent. lg3 Administered Medications: 10:49 CANCELLED (Physician Discretion): Ativan (LORazepam) 1 mg IM once pm1 10:51 Drug: Geodon (ziprasidone) 20 mg Route: IM; Site: right deltoid; cb5 19:56 Follow up: Response: No adverse reaction lg3 11:00 Drug: Benadryl (diphenhydrAMINE) 25 mg Route: IM; Site: right deltoid; cb5 19:56 Follow up: Response: No adverse reaction lg3 14:11 CANCELLED (Physician Discretion): Valium (diazepam) 2 mg PO once pm1 14:16 Drug: Valium (diazepam) 2.5 mg Route: PO; cb5 19:55 Follow up: Response: No adverse reaction lg3 Outcome: 15:36 ER care complete, transfer ordered by . pm1 19:51 Transferred [facility] . Note: [facility] lg3 19:51 Condition: good 19:51 Discharge instructions given to patient, police. 20:10 Patient left the ED. lg3 Signatures: Tierney Mcdonough Patrick, BENJAMIN OVEN STRIPPER pm1 Jose A Tijerina RN RN jl7 Jacque Hernandez 3 Katherine Quiles, BALJIT RN lg3 Reyna Mendoza, RN RN cb5
[2021-06-30 20:31] VITALS: TEMP 98.6; O2SAT 99
[2021-06-30 20:34] VITALS: BP 131/73
--- NOTE | 2021-07-02 07:29 | EKG ---
Test Date: 2021-06-30 Test Time: 10:21:28 [employer]ne[employer] Operator: DUYEN MEASUREMENT RESULTS: Intervals: Rate: 93 OK: 146 QRSD: 66 QT: 346 QTc: 430 [place]: P: 68 OK: 146 QRS: 42 T: 49 INTERPRETIVE STATEMENTS: Normal sinus rhythm Low voltage QRS Borderline ECG Compared to ECG 06/20/2021 02:03:39 Sinus bradycardia no longer present Sinus arrhythmia no longer present Electronically Signed On 07-02-21 07:23:10 CDT by Chucho Dubois
== END 2021-06-30 20:10 ==
LOC: ER 09:53
DX: R45.851 Suicidal ideations (principal); R45.850 Homicidal ideations; F20.9 Schizophrenia, unspecified; Z20.822 Contact with and (suspected) exposure to COVID-19
CPT/HCPCS: 93005; 85025; 80048; 36415; 80320; 80329 ×2; 85610; 80076; 85730; 81003; 80307; 96372; 99285; U0003; J1200; J3486